=== PATIENT | female | born 1945 | race Caucasian/White ===

== ENCOUNTER 2024-04-03 02:03 | Inpatient (IN) | payer MEDICARE ==
[2024-04-03] MEDS: IBUPROFEN 600 MG TAB PO STA (02:39)
[2024-04-03] MEDS: ACETAMINOPHEN TAB 500 MG TAB PO STA (02:39)
[2024-04-03] MEDS: DEXAMETHASONE SOD PHOSPHATE 10 MG/ML 1 ML VIAL IVP STA (02:41)
[2024-04-03] MEDS: SODIUM CHLORIDE 0.9% 500 ML 500 ML IV SCH (02:41)
--- NOTE | 2024-04-03 02:48 | ED ---
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 The patient states that she received immunotherapy earlier in the day yesterday. A few hours after that she began throwing up and having difficulty in breathing. Also endorses a pounding headache across the front of her head. Denies any blood or green color to her vomit. Denies any diarrhea, black or bloody stools or abdominal pain. Endorses cough, stating that she has had a persistent sinus infection for the last few weeks. No hemoptysis. Denies chest pain. History is limited by acuity of condition. - Related Data Home Medications Medication Instructions Recorded Confirmed Atorvastatin [Lipitor] 40 mg PO PC-SUPPER 04/03/24 04/03/24 clonazePAM [KlonoPIN] 1 mg PO HS@199904/03/24 04/03/24 ursodioL [Ursodiol] 300 mg PO BID@08,199904/03/24 04/03/24 Previous Rx's Medication Instructions Recorded Acetaminophen Tab [Tylenol] 650 mg PO Q6HR PRN tab 04/06/24 Apixaban [Eliquis] 5 mg PO BID #60 tab 04/06/24 Aspirin 81 mg PO DAILY #30 tab 04/06/24 Calcium Carbonate [Tums] 1,000 mg PO Q4HR PRN tab 04/06/24 Famotidine [Pepcid] 20 mg PO BID #60 tab 04/06/24 predniSONE [Deltasone] 40 mg PO DAILY #60 tab 04/06/24 Allergies Allergy/AdvReac Type Severity Reaction Status Date / Time No Known Allergies Allergy Verified 04/03/24 07:37 Review of Systems ROS Statement: Those systems with pertinent positive or pertinent negative responses have been documented in the HPI. ROS Other: All systems not noted in ROS Statement are negative. Limitations: ROS unobtainable due to patients medical condition Past Medical History Past Medical History: Atrial Fibrillation, Cancer History of Any Multi-Drug Resistant Organisms: None Reported Past Surgical History: Coronary Bypass/CABG Past Psychological History: Anxiety Smoking Status: Former smoker Past Alcohol Use History: None Reported General Exam - General Exam Comments Initial Comments: PE: CONSTITUTIONAL: Tachypneic, mild distress, ill-appearing SKIN: Warm, dry, no jaundice, hives or petechiae EYES: Pupils are equally round, extraocular movements intact without nystagmus, clear conjunctiva, non-icteric sclera HENT: Normocephalic, atraumatic, dry mucus membranes, oropharynx clear without exudates NECK: , Full range of motion, normal appearance PULMONARY: Crackles and rales in the bilateral lung brito, no wheezes, tach ypnea, supraclavicular retractions, no stridor CARDIOVASCULAR: Cardia, regular rhythm normal S1 and S2. No appreciated murmurs, rubs or gallops. Strong radial pulses with intact distal perfusion. No lower extremity edema GASTROINTESTINAL: Soft, active bowel sounds throughout, non-tender, non-distend ed, no palpable masses, no rebound or guarding. No hepatosplenomegaly MUSCULOSKELETAL: Extremities have no gross deformity, no edema, redness, or swelling. No calf swelling NEUROLOGIC:_a/o x 3, GCS 15, normal mentation and speech. Moves all extremities x 4 without motor or sensory deficit PSYCHIATRIC:_normal mood and affect, thought process is clear and linear Course Vital Signs 04/03/24 04/03/24 04/03/24 02:06 02:54 03:36 Temperature 99.2 F Pulse Rate 129 H 120 H Pulse Rate [ Pulse Oximetery ] Respiratory 16 Rate Blood Pressure 168/68 166/77 Blood Pressure [Right Arm Sitting] O2 Sat by Pulse 95 Oximetry Fraction of 44 Inspired Oxygen (FIO2) 04/03/24 04/03/24 04/03/24 03:45 04:30 06:10 Temperature 99.2 F 98.5 F Pulse Rate 107 H 99 101 H Pulse Rate [ Pulse Oximetery ] Respiratory 20 20 Rate Blood Pressure 106/46 103/47 Blood Pressure [Right Arm Sitting] O2 Sat by Pulse 98 97 Oximetry Fraction of Inspired Oxygen (FIO2) 04/03/24 04/03/24 04/03/24 06:14 06:31 08:01 Temperature 98.6 F Pulse Rate 99 93 Pulse Rate [ Pulse Oximetery ] Respiratory 20 Rate Blood Pressure 99/51 Blood Pressure [Right Arm Sitting] O2 Sat by Pulse 97 99 Oximetry Fraction of 40 Inspired Oxygen (FIO2) 04/03/24 04/03/24 04/03/24 08:05 09:26 11:46 Temperature Pulse Rate 90 91 Pulse Rate [ Pulse Oximetery ] Respiratory 18 18 Rate Blood Pressure 96/50 112/63 Blood Pressure [Right Arm Sitting] O2 Sat by Pulse 99 99 Oximetry Fraction of 40 Inspired Oxygen (FIO2) 04/03/24 04/03/24 04/03/24 11:57 14:40 16:05 Temperature Pulse Rate 81 84 Pulse Rate [ Pulse Oximetery ] Respiratory 18 18 Rate Blood Pressure 108/54 109/52 Blood Pressure [Right Arm Sitting] O2 Sat by Pulse 100 100 Oximetry Fraction of 40 Inspired Oxygen (FIO2) 04/03/24 04/03/24 04/03/24 16:16 17:13 18:46 Temperature Pulse Rate 80 77 78 Pulse Rate [ Pulse Oximetery ] Respiratory 22 22 22 Rate Blood Pressure 131/61 110/62 100/52 Blood Pressure [Right Arm Sitting] O2 Sat by Pulse 100 100 100 Oximetry Fraction of 40 Inspired Oxygen (FIO2) 04/03/24 04/03/24 04/03/24 19:32 19:39 22:54 Temperature Pulse Rate 75 Pulse Rate [ 74 Pulse Oximetery ] Respiratory 20 18 Rate Blood Pressure 104/61 Blood Pressure 105/58 [Right Arm Sitting] O2 Sat by Pulse 100 100 100 Oximetry Fraction of 40 43 Inspired Oxygen (FIO2) 04/03/24 04/04/24 04/04/24 23:36 00:38 01:16 Temperature Pulse Rate 69 69 Pulse Rate [ Pulse Oximetery ] Respiratory 16 14 Rate Blood Pressure 90/48 99/51 Blood Pressure [Right Arm Sitting] O2 Sat by Pulse 100 100 100 Oximetry Fraction of 43 Inspired Oxygen (FIO2) 04/04/24 04/04/24 04/04/24 02:09 02:23 05:50 Temperature 97.8 F 98.0 F Pulse Rate 66 Pulse Rate [ 74 81 Pulse Oximetery ] Respiratory 14 18 18 Rate Blood Pressure 85/55 Blood Pressure 125/73 130/84 [Right Arm Sitting] O2 Sat by Pulse 99 100 100 Oximetry Fraction of 40 42 Inspired Oxygen (FIO2) 04/04/24 04/04/24 04/04/24 08:20 08:37 15:12 Temperature 98.4 F Pulse Rate 79 74 Pulse Rate [ Pulse Oximetery ] Respiratory 16 22 Rate Blood Pressure 123/60 112/58 Blood Pressure [Right Arm Sitting] O2 Sat by Pulse 100 100 100 Oximetry Fraction of 42 Inspired Oxygen (FIO2) - Reevaluation(s) Reevaluation #1: Patient reassessed, now on high flow nasal cannula, coloring is improved and she appears much were comfortable, tachycardia has improved, HR 100. 04/03/24 03:55 EKG Findings - EKG Comments: EKG Findings:: Sinus tachycardia, shortened WV interval, rate 125 ms, WV interval 115 ms, QRS duration 115 ms, QT/QTc 296/370 ms, normal axis, artifact present throughout, T wave inversion in V3, no STEMI, no arrythmia Medical Decision Making - Medical Decision Making Was pt. sent in by a medical professional or institution (, PA, AUTOMATIC SERGING MACHINE OPERATOR, urgent care, hospital, or [facility]...) When possible be specific @ -No Did you speak to anyone other than the patient for history (EMS, parent, family, police, friend...)? What history was obtained from this source @ -No Did you review nursing and triage notes (agree or disagree)? Why? @ -I reviewed and agree with nursing and triage notes Were old charts reviewed (outside hosp., previous admission, EMS record, old EKG, old radiological studies, urgent care reports/EKG's, [facility] records)? Report findings @ -No old charts available for review Differential Diagnosis (chest pain, altered mental status, abdominal pain women, abdominal pain men, vaginal bleeding, weakness, fever, dyspnea, syncope, headache, dizziness, GI bleed, back pain, seizure, CVA, palpatations, mental health, musculoskeletal)? @ - Differential diagnosis remains broad however top considerations include sepsis secondary to pneumonia, viral infection, bronchitis, hypersensitivity reaction to immunotherapy, allergic reaction, new onset CHF, ACS, PE, this is not inclusive list EKG interpreted by me (3pts min.). @ -As above X-rays interpreted by me (1pt min.). @ -No acute process, no consoldiations or effusons CT interpreted by me (1pt min.). @ No hemorrhage or mass effect on CT brain U/S interpreted by me (1pt. min.). @ -None done What testing was considered but not performed or refused? (CT, X-rays, U/S, labs)? Why? @ -Considered CT abdomen/pelvis however patient denies abdominal pain, abdomen soft and nontender, active bowel wounds, suspect N/V more likely 2/2 reaaction to immunotherapy as opposed to acute intraabdominal process What meds were considered but not given or refused? Why? @ -None Did you discuss the management of the patient with other professionals (professionals i.e. , PA, AUTOMATIC SERGING MACHINE OPERATOR, lab, RT, psych nurse, social service director, drip molder, teacher, chief safety officer, top case assembler)? Give summary @ -No Was smoking cessation discussed for >3mins.? @ -No Was critical care preformed (if so, how long)? @ -Yes 60 minutes Were there social determinants of health that impacted care today? How? (Homelessness, low income, unemployed, alcoholism, drug addiction, transportation, low edu. Level, literacy, decrease access to med. care, alf, rehab)? @ -No Was there de-escalation of care discussed even if they declined (Discuss DNR or withdrawal of care, Hospice)? @ -No What co-morbidities impacted this encounter? (DM, HTN, Smoking, COPD, CAD, Cancer, CVA, ARF, Chemo, Hep., AIDS, mental health diagnosis, sleep apnea, morbid obesity)? @ -[Metastatic small cell lung CA Was patient admitted / discharged? Hospital course, mention meds given and route, prescriptions, significant lab abnormalities, going to OR and other pertinent info. @ -Hospital course- Admitted Patient is a 78-year-old female past medical history of small cell lung cancer with metastases to the liver presenting today for 1 day of shortness of breath, nausea and vomiting that began after receiving immunotherapy for the first time yesterday afternoon. On my assessment patient is ill-appearing, pale, tachypneic in moderate distress, conversational dyspnea on 4 L oxygen nasal cannula. Yellowish emesis in basin at bedside. Crackles and rales in lungs t hroughout the lower lung brito bilaterally. Abdomen is soft and nontender, nondistended. Differential diagnosis as above. Will begin with sepsis order set, in addition to comprehensive labs. Discussed with RT plan for high beth nasal cannula due to my suspicions of SHILO and pulm exam being 2/2 pneumonia vs hypersensitivity reaction to immunotherapy. RT will trial HiFlo. On reassessment patient appears to be sleeping and breath more comfortably after administration of HiFlo Labs reviewed, significant for white blood cell count of 31.4, neutrophils 30.1%, 0.63% lymphocytes, 0.31 metamyelocytes, AST/ALT 97/94, alkaline phosphatase 136, troponin 0.031, TSH 0.448, free T41.15, negative viral panel. CT PE study was delayed due to difficulty obtaining large-bore IV for contrast ministration. On my reassessment though patient's coloring improved she still endorse shortness of breath. Multiple IV attempts were made without success of obtaining large-bore IV. Given rales and crackles in the bilateral lung brito I suspect that patient symptoms are more likely secondary to pneumonia versus immunotherapy reaction such as pulmonary edema, at this point we will hold off on CT PE study and obtain chest x-rays. The patient did receive a 30 cc/kg bolus out of concern for sepsis however I will administer 20 mg IV Lasix out of new concern that there may be a component of pulmonary edema caused by immunotherapy. Albuterol treatment will be trialed as well however patient does not have wheezes and I have low suspicion that this will help symptoms. Plan for admission. Discussed plan of care with patient, she was agreeable with POC. Discussed case with Dr. Hairston, who kindly accepted patient for admission. Noe, AUTOMATIC SERGING MACHINE OPERATOR with pulm team, was also consulted given patients new O2 requirement and pulmonary exam findings. Patient admitted in stable condition. Undiagnosed new problem with uncertain prognosis? @ -Yes Drug Therapy requiring intensive monitoring for toxicity (Heparin, Nitro, Insulin, Cardizem)? @ -No Were any procedures done? @ -No Diagnosis/symptom? @ Acute hypoxic respiratory failure Acute, or Chronic, or Acute on Chronic? @ -acute Uncomplicated (without systemic symptoms) or Complicated (systemic symptoms)? @ -complicated Side effects of treatment? @ -No Exacerbation, Progression, or Severe Exacerbation? @ -No Poses a threat to life or bodily function? How? (Chest pain, USA, OR, pneumonia, PE, COPD, DKA, ARF, appy, cholecystitis, CVA, Diverticulitis, Homicidal, Suicidal, threat to staff... and all critical care pts) @ Yes - Lab Data Result diagrams: 04/05/24 06:12 04/05/24 06:12 Lab Results 04/03/24 04/03/24 04/03/24 Range/Units 02:34 02:47 03:26 WBC 31.4 H (3.8-10.6) k/uL RBC 3.98 (3.80-5.40) m/uL Hgb 12.0 (11.4-16.0) gm/dL Hct 37.1 (34.0-46.0) % MCV 93.2 (80.0-100.0) fL MCH 30.3 (25.0-35.0) pg MCHC 32.5 (31.0-37.0) g/dL RDW 15.1 (11.5-15.5) % Plt Count 232 (150-450) k/uL MPV 8.8 Neutrophils % Not Reportable Neutrophils % (Manual) 89 % Band Neuts % (Manual) 7 % Lymphocytes % Not Reportable Lymphocytes % (Manual) 2 % Monocytes % Not Reportable Monocytes % (Manual) 3 % Eosinophils % Not Reportable Basophils % Not Reportable Metamyelocytes % 1 % Neutrophils # Not Reportable Neutrophils # (Manual) 30.10 H (1.3-7.7) k/uL Lymphocytes # Not Reportable Lymphocytes # (Manual) 0.63 L (1.0-4.8) k/uL Monocytes # Not Reportable Monocytes # (Manual) 0.94 (0-1.0) k/uL Eosinophils # Not Reportable Basophils # Not Reportable Metamyelocytes # (Man) 0.31 H (0) k/uL Nucleated RBCs 0 (0-0) /100 WBC Manual Slide Review Performed RBC Morphology Normal PT (10.0-12.5) sec INR (<1.2) APTT (22.0-30.0) sec Sodium (137-145) mmol/L Potassium (3.5-5.1) mmol/L Chloride (98-107) mmol/L Carbon Dioxide (22-30) mmol/L Anion Gap mmol/L BUN (7-17) mg/dL Creatinine (0.52-1.04) mg/dL Est GFR (CKD-EPI)AfAm (>60 ml/min/1.73 sqM) Est GFR (CKD-EPI)NonAf (>60 ml/min/1.73 sqM) Glucose (74-99) mg/dL Plasma Lactic Acid Sagar (0.7-2.0) mmol/L Calcium (8.4-10.2) mg/dL Ionized Calcium Suzi (4.5-5.3) mg/dL Phosphorus (2.5-4.5) mg/dL Total Bilirubin (0.2-1.3) mg/dL AST (14-36) U/L ALT (4-34) U/L Alkaline Phosphatase (38-126) U/L Troponin I 0.031 (0.000-0.034) ng/mL Total Protein (6.3-8.2) g/dL Albumin (3.5-5.0) g/dL Amylase (30-110) U/L Lipase (23-300) U/L Procalcitonin (0.02-0.50) ng/mL TSH (0.465-4.680) mIU/L Free T4 (0.78-2.19) ng/dL Influenza Type A (PCR) Not Detected (Not Detectd) Influenza Type B (PCR) Not Detected (Not Detectd) RSV (PCR) Not Detected (Not Detectd) SARS-CoV-2 (PCR) Not Detected (Not Detectd) 04/03/24 04/03/24 04/03/24 Range/Units 03:26 03:26 03:26 WBC (3.8-10.6) k/uL RBC (3.80-5.40) m/uL Hgb (11.4-16.0) gm/dL Hct (34.0-46.0) % MCV (80.0-100.0) fL MCH (25.0-35.0) pg MCHC (31.0-37.0) g/dL RDW (11.5-15.5) % Plt Count (150-450) k/uL MPV Neutrophils % Neutrophils % (Manual) % Band Neuts % (Manual) % Lymphocytes % Lymphocytes % (Manual) % Monocytes % Monocytes % (Manual) % Eosinophils % Basophils % Metamyelocytes % % Neutrophils # Neutrophils # (Manual) (1.3-7.7) k/uL Lymphocytes # Lymphocytes # (Manual) (1.0-4.8) k/uL Monocytes # Monocytes # (Manual) (0-1.0) k/uL Eosinophils # Basophils # Metamyelocytes # (Man) (0) k/uL Nucleated RBCs (0-0) /100 WBC Manual Slide Review RBC Morphology PT 11.6 (10.0-12.5) sec INR 1.1 (<1.2) APTT 22.1 (22.0-30.0) sec Sodium 137 (137-145) mmol/L Potassium (3.5-5.1) mmol/L Chloride 104 (98-107) mmol/L Carbon Dioxide 26 (22-30) mmol/L Anion Gap 7 mmol/L BUN 15 (7-17) mg/dL Creatinine 0.52 (0.52-1.04) mg/dL Est GFR (CKD-EPI)AfAm >90 (>60 ml/min/1.73 sqM) Est GFR (CKD-EPI)NonAf >90 (>60 ml/min/1.73 sqM) Glucose 136 H (74-99) mg/dL Plasma Lactic Acid Sagar 1.7 (0.7-2.0) mmol/L Calcium 9.0 (8.4-10.2) mg/dL Ionized Calcium Suzi 4.7 (4.5-5.3) mg/dL Phosphorus 3.4 (2.5-4.5) mg/dL Total Bilirubin 0.8 (0.2-1.3) mg/dL AST 97 H (14-36) U/L ALT 94 H (4-34) U/L Alkaline Phosphatase 136 H (38-126) U/L Troponin I (0.000-0.034) ng/mL Total Protein 6.6 (6.3-8.2) g/dL Albumin 4.0 (3.5-5.0) g/dL Amylase (30-110) U/L Lipase 29 (23-300) U/L Procalcitonin (0.02-0.50) ng/mL TSH 0.448 L (0.465-4.680) mIU/L Free T4 1.15 (0.78-2.19) ng/dL Influenza Type A (PCR) (Not Detectd) Influenza Type B (PCR) (Not Detectd) RSV (PCR) (Not Detectd) SARS-CoV-2 (PCR) (Not Detectd) 04/03/24 04/03/24 Range/Units 03:26 06:35 WBC (3.8-10.6) k/uL RBC (3.80-5.40) m/uL Hgb (11.4-16.0) gm/dL Hct (34.0-46.0) % MCV (80.0-100.0) fL MCH (25.0-35.0) pg MCHC (31.0-37.0) g/dL RDW (11.5-15.5) % Plt Count (150-450) k/uL MPV Neutrophils % Neutrophils % (Manual) % Band Neuts % (Manual) % Lymphocytes % Lymphocytes % (Manual) % Monocytes % Monocytes % (Manual) % Eosinophils % Basophils % Metamyelocytes % % Neutrophils # Neutrophils # (Manual) (1.3-7.7) k/uL Lymphocytes # Lymphocytes # (Manual) (1.0-4.8) k/uL Monocytes # Monocytes # (Manual) (0-1.0) k/uL Eosinophils # Basophils # Metamyelocytes # (Man) (0) k/uL Nucleated RBCs (0-0) /100 WBC Manual Slide Review RBC Morphology PT (10.0-12.5) sec INR (<1.2) APTT (22.0-30.0) sec Sodium (137-145) mmol/L Potassium (3.5-5.1) mmol/L Chloride (98-107) mmol/L Carbon Dioxide (22-30) mmol/L Anion Gap mmol/L BUN (7-17) mg/dL Creatinine (0.52-1.04) mg/dL Est GFR (CKD-EPI)AfAm (>60 ml/min/1.73 sqM) Est GFR (CKD-EPI)NonAf (>60 ml/min/1.73 sqM) Glucose (74-99) mg/dL Plasma Lactic Acid Sagar (0.7-2.0) mmol/L Calcium (8.4-10.2) mg/dL Ionized Calcium Suzi (4.5-5.3) mg/dL Phosphorus (2.5-4.5) mg/dL Total Bilirubin (0.2-1.3) mg/dL AST (14-36) U/L ALT (4-34) U/L Alkaline Phosphatase (38-126) U/L Troponin I 0.077 H* (0.000-0.034) ng/mL Total Protein (6.3-8.2) g/dL Albumin (3.5-5.0) g/dL Amylase (30-110) U/L Lipase (23-300) U/L Procalcitonin 0.21 (0.02-0.50) ng/mL TSH (0.465-4.680) mIU/L Free T4 (0.78-2.19) ng/dL Influenza Type A (PCR) (Not Detectd) Influenza Type B (PCR) (Not Detectd) RSV (PCR) (Not Detectd) SARS-CoV-2 (PCR) (Not Detectd) Disposition Clinical Impression: Acute hypoxic respiratory failure Disposition: ADMITTED IP TO THIS HOSP
[2024-04-03] MEDS: ONDANSETRON 4 MG/2 ML VIAL IVP STA (02:50)
[2024-04-03] MEDS: CEFEPIME 2 GM in SODIUM CHLORIDE 0.9% 100 ML IVPB STA (03:42)
[2024-04-03 03:55] LABS: Ionized Calcium 4.7 mg/dL (4.5-5.3)
[2024-04-03 03:57] LABS: HCT 37.1 % (34.0-46.0); MCH 30.3 pg (25.0-35.0); MCHC 32.5 g/dL (31.0-37.0); MCV 93.2 fL (80.0-100.0); Mean Platelet Volume 8.8; Platelet Count 232 k/uL (150-450); RBC 3.98 m/uL (3.80-5.40); RDW 15.1 % (11.5-15.5); WBC 31.4 k/uL (3.8-10.6)
[2024-04-03 04:33] LABS: ALT 94 U/L (4-34); AST 97 U/L (14-36); African American GFR (CKD) >90 (>60 ml/min/1.73 sqM); Alkaline Phosphatase 136 U/L (38-126); Anion Gap 7 mmol/L; Blood Urea Nitrogen 15 mg/dL (7-17); Carbon Dioxide 26 mmol/L (22-30); Chloride 104 mmol/L (98-107); Glucose 136 mg/dL (74-99); Lipase 29 U/L (23-300); Non-African American GFR(CKD) >90 (>60 ml/min/1.73 sqM); Phosphorus 3.4 mg/dL (2.5-4.5); Sodium 137 mmol/L (137-145); Total Bilirubin 0.8 mg/dL (0.2-1.3); Total Protein 6.6 g/dL (6.3-8.2)
[2024-04-03 04:35] LABS: INR 1.1 (<1.2); Partial Thromboplastin Time 22.1 sec (22.0-30.0); Prothrombin Time 11.6 sec (10.0-12.5)
[2024-04-03 05:36] LABS: T4, Free (Free Thyroxine) 1.15 ng/dL (0.78-2.19)
[2024-04-03 05:45] LABS: Band Neutrophils % 7 %; Lymphocytes # (M) 0.63 k/uL (1.0-4.8); Metamyelocytes # (M) 0.31 k/uL (0); Metamyelocytes % 1 %; Monocytes # (M) 0.94 k/uL (0-1.0); Neutrophils % (M) 89 %; Nucleated Red Blood Cells 0 /100 WBC (0-0); RBC Morphology Normal; Total Cells Counted 200
[2024-04-03] MEDS: IPRATROPIUM-ALBUTEROL 3 ML NEB INHALATION STA (06:09)
[2024-04-03] MEDS ORDERED: NALOXONE 0.4 MG/ML 1 ML VIAL IV PRN (06:13)
[2024-04-03] MEDS: FUROSEMIDE 10 MG/ML 2 ML VIAL IV ONE (06:24)
[2024-04-03] MEDS ORDERED: MAG HYDROX/AL HYDROX/SIMETH 30 ML CUP PO PRN (06:41)
[2024-04-03] MEDS ORDERED: ONDANSETRON 4 MG/2 ML VIAL IVP PRN (06:41)
[2024-04-03] MEDS ORDERED: HYDROmorphone 1 MG/ML 1 ML SYRINGE IVP PRN (06:41)
[2024-04-03] MEDS ORDERED: CALCIUM CARBONATE 500 MG CHEWABLE PO PRN (06:41)
--- NOTE | 2024-04-03 07:38 | CT ---
EXAMINATION TYPE: CT brain wo con DATE OF EXAM: 04/03/2024 COMPARISON: None HISTORY: Pt presents to ER via EMS. Pt had first round of immunotherapy, continuation of chemotherapy for lung/liver cancer yesterday at [facility]. Pt began to experience shortness of breath and nausea a t [address] DLP: [address] of the brain was performed. The ventricles, basal cisterns and sulci overlying the cerebral convexities demonstrate mild enlargem ent. There is no evidence for intracranial hemorrhage or sulcal effacement. There is decreased attenuation about the periventricular white matter and deep white matter of both c erebral hemispheres, compatible with chronic small vessel ischemia. Differential diagnosis does inclu de demyelination. No mass effects are seen.No midline shift. High density material within the left maxillary sinus may reflect inspissated mucus. Osseous calvarium is intact. If symptoms persist consider MRI. IMPRESSION: 1. Age related atrophic and chronic small vessel ischemic change without acute intracranial process s een at this time. [facility], , 04/03/2024 7:36 AM
--- NOTE | 2024-04-03 07:47 | XR ---
EXAMINATION TYPE: XR chest 2V DATE OF EXAM: 04/03/2024 COMPARISON: NONE HISTORY: Shortness of breath TECHNIQUE: Frontal and lateral views of the chest are obtained. FINDINGS: Scattered senescent parenchymal changes noted. Hyperinflation compatible with COPD. No evidence for infiltrate. No evidence for atelectasis. Heart size is stable. Mediastinal structures are stable and grossly unremarkable. No evidence for hilar prominence. Degenerative changes dorsal spine. IMPRESSION: 1. No evidence for acute pulmonary disease. [facility], , 04/03/2024 7:44 AM
--- NOTE | 2024-04-03 08:37 | P.HPIM ---
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 She claims that she had chemotherapy about 2 weeks ago and tolerated well. She had another round of chemotherapy along with immunotherapy yesterday. As soon as she got home within 6 hours she has developed sudden onset of shortness of breath. She denies any chest pain or cough or abdominal pain. She denies any lower extremity swelling, sick contacts or recent travel. She believes all of her symptoms are secondary to her immunotherapy. She denies any lightheadedness, palpitations, fevers or chills. She did have some nausea and vomiting because of severe shortness of breath. She denies any urinary complaints. In the ED, temperature is 99.2, pulse 129, respiratory rate 16, blood pressure 168/68, saturating at 95% on high flow nasal cannula at 35 L, FiO2 44%. WBC 31.4, band neutrophils 7%, sodium 137, creatinine 0.52, troponin 0.031, AST 97, ALT 94, ALP 136, TSH 0.448, free T41.15, lipase 29. Chest x-ray independently interpreted, possible right lower lobe opacity. EKG independently interpreted, shows sinus tachycardia with significant baseline artifact, T wave inversions in septal and inferior leads, nonspecific ST-T wave changes. Head CT did not show any acute process. Patient was given a dose of IV cefepime in the ED, IV steroids, breathing treatments. She is being admitted for acute hypoxic respiratory failure, possibly secondary to community-acquired pneumonia. CT angiogram still pending. Pertinent positives and negatives as discussed in HPI, a complete review of systems was performed and all other systems are negative. Patient seen and examined at bedside. Vital signs reviewed General: nontoxic, no distress, appears at stated age, chronically ill- appearing, thin Derm: warm, dry Head: atraumatic, normocephalic, symmetric Eyes: EOMI, no lid lag, anicteric sclera, pupils equal round reactive to light ENT: Nose and ears atraumatic Neck: No thyromegaly, supple Mouth: no lip lesion, mucus membranes moist Cardiovascular: S1S2 reg, no murmur, no edema Lungs: clear to auscultation bilateral, no rhonchi, no rales, no wheeze, on Airvo Abdominal: soft, nontender to palpation, no guarding, no appreciable organomegaly Ext: no gross muscle atrophy, muscle strength muscle strength 5 out of 5 in all 4 extremities, no contractures Neuro: CN II-XII grossly intact Psych: Alert, oriented, appropriate affect Assessment/Plan: Active: Acute hypoxic respiratory failure Sepsis secondary to community-acquired pneumonia Leukocytosis with bandemia Possible pulmonary embolism History of small cell lung cancer with metastatic disease to the liver, on chemoimmunotherapy Sinus tachycardia NSTEMI, likely type II -Continue Airvo for now, continue to wean oxygen -Possible right lower lobe opacity -Will get 2 L of lactated Ringer's -Continue cefepime IV 2 g every 8 hours, azithromycin 500 mg IV daily -Procalcitonin, sputum cultures, blood cultures pending -CT angiogram pending -Pulmonology and oncology consulted -Continue to monitor troponin -Continue telemetry monitoring -Aspirin 324 once, continue aspirin 81 mg, continue home atorvastatin 40 mg daily -Echo pending Transaminitis -Possibly in the setting of liver mets Low TSH -Repeat thyroid function test in 4 to 6 weeks The patient is admitted with an anticipated greater than 2 midnight stay as inpatient status for evaluation of hypoxic respiratory failure. Surrogate decision-maker: None stated CODE STATUS: Full code DVT prophylaxis: Lovenox Anticipated discharge date: Pending clinical course Anticipated discharge place: Pending clinical course A total of 55 minutes was spent on the care of this complex patient more than 50% of the time was spent in counseling and care coordination. Past Medical History Past Medical History: Atrial Fibrillation, Cancer History of Any Multi-Drug Resistant Organisms: None Reported Past Surgical History: Coronary Bypass/CABG Past Psychological History: Anxiety Smoking Status: Former smoker Past Alcohol Use History: None Reported Medications and Allergies Home Medications Medication Instructions Recorded Confirmed Type Atorvastatin [Lipitor] 40 mg PO PC-SUPPER 04/03/24 04/03/24 History clonazePAM [KlonoPIN] 1 mg PO HS@199904/03/24 04/03/24 History ursodioL [Ursodiol] 300 mg PO BID@08,199904/03/24 04/03/24 History Allergies Allergy/AdvReac Type Severity Reaction Status Date / Time No Known Allergies Allergy Verified 04/03/24 07:37 Physical Exam Vitals: Vital Signs Temp Pulse Resp BP Pulse Ox FiO2 04/03/24 06:31 98.6 F 93 20 99/51 97 04/03/24 06:14 99 04/03/24 06:10 101 H 04/03/24 04:30 98.5 F 99 20 103/47 97 04/03/24 03:45 99.2 F 107 H 20 106/46 98 04/03/24 03:36 44 04/03/24 02:54 120 H 166/77 04/03/24 02:06 99.2 F 129 H 16 168/68 95 Intake and Output 04/02/24 04/03/24 04/03/24 22:59 06:59 14:59 Other: Weight 52.163 kg Results CBC & Chem 7: 04/03/24 03:26 04/03/24 03:26 Labs: Abnormal Lab Results - Last 24 Hours (Table) 04/03/24 04/03/24 Range/Units 03:26 03:26 WBC 31.4 H (3.8-10.6) k/uL Neutrophils # (Manual) 30.10 H (1.3-7.7) k/uL Lymphocytes # (Manual) 0.63 L (1.0-4.8) k/uL Metamyelocytes # (Man) 0.31 H (0) k/uL Glucose 136 H (74-99) mg/dL AST 97 H (14-36) U/L ALT 94 H (4-34) U/L Alkaline Phosphatase 136 H (38-126) U/L TSH 0.448 L (0.465-4.680) mIU/L
[2024-04-03] MEDS: LACTATED RINGERS 1,000 ML IV ONE ×2 (09:15→11:56)
[2024-04-03] MEDS: AZITHROMYCIN 500 MG in SODIUM CHLORIDE 0.9% 250 ML IVPB SCH (09:17)
[2024-04-03] MEDS: ASPIRIN 81 MG PO STA (09:24)
[2024-04-03] MEDS: FAMOTIDINE 20 MG TAB PO SCH (09:25)
[2024-04-03] MEDS: ENOXAPARIN 40 MG/0.4 ML SYRINGE SQ SCH (09:25)
--- NOTE | 2024-04-03 09:26 | CT ---
EXAMINATION TYPE: CT angio chest CT DLP: 271.9 mGycm, Automated exposure control for dose reduction was used. DATE OF EXAM: 04/03/2024 8:48 AM COMPARISON: CT chest 04/03/2024 CLINICAL INDICATION: Female, 78 years old with history of tachypnea, CA, PE?; sob TECHNIQUE/CONTRAST: CTA scan of the thorax is performed with IV Contrast, patient injected with 63 mL of Isovue 370, MIP images are created and reviewed these are created on a separate workstation.. FINDINGS: Pulmonary Artery: Scattered small filling defect suggested in this motion limited exam particularly i n the left lower lung subsegmental pulmonary arterial vasculature series 411 image 119. The pulmonary artery is of normal size. Lungs/Pleura: No evidence of focal consolidation, pleural effusion or pneumothorax. Right lower lobe mass measures 63 x 43 mm. Mild centrilobular emphysema changes most proximal lung apices. Airway: Large airways are patent. Heart: The heart is mildly enlarged for size. Aortic valve repair changes noted. Mild atherosclerosis of the coronary arteries. Vasculature: No evidence of aortic aneurysm. Ectatic extending thoracic aorta measuring up to 43 mm. Mediastinum: No gross evidence of adenopathy. Specifically no greater than 1.0 cm short axis lymph no bree identified. Musculoskeletal: Moderate degenerative disc disease changes are present throughout the thoracolumbar spine. Sternotomy wires are present. Soft Tissues/lymph nodes: Unremarkable. Lower neck: No significant findings. Upper Abdomen: No significant findings. IMPRESSION: 1. Questionable small filling defects in this motion limited exam in the left lung base possibly rep resenting small subsegmental pulmonary emboli. Correlate with d-dimer. No evidence right heart strain . 2. Right lower lung pulmonary mass compatible with known malignancy. No greater than 1.0 cm lymph no bree visualized. [facility], , 04/03/2024 9:24 AM
[2024-04-03] MEDS: HEPARIN SODIUM,PORCINE 5,000 UNIT/ML 1 ML VIAL SQ SCH (09:31)
[2024-04-03] MEDS ORDERED: HEPARIN SODIUM 1,000 UN/ML (10ML VL) IV PRN (11:06)
[2024-04-03] MEDS: methylPREDNISolone SOD SUCCI 125 MG/2 ML VIAL IV SCH (12:03)
[2024-04-03] MEDS: HEPARIN SODIUM 1,000 UN/ML (10ML VL) IV ONE (12:23)
[2024-04-03] MEDS: HEPARIN SOD,PORK IN 0.45% NACL 25,000 UNIT in 0.45% NACL 1 250ML.BAG IV SCH (12:24)
[2024-04-03 12:52] LABS: INR 1.2 (<1.2); Partial Thromboplastin Time 27.8 sec (22.0-30.0); Prothrombin Time 12.5 sec (10.0-12.5)
--- NOTE | 2024-04-03 14:42 | P.CNPUL ---
History of Present Illness Consult date: 04/03/24 Requesting physician: Jose Luis Grier Reason for consult: dyspnea, hypoxemia, abnormal CXR/CT Chief complaint: Shortness of breath History of present illness: This is a pleasant 78-year-old female patient with a history of coronary artery disease with previous coronary artery bypass grafting, hyperlipidemia, atrial fibrillation, anxiety, former smoker and recent diagnosis of small cell lung cancer that has metastasized to the liver diagnosed at [facility] in [place]. She is following with Dr. Cao while here in [facility] and had undergone a round of chemotherapy and just yesterday had a second round of chemotherapy in addition to immunotherapy. Several hours later and into the last evening she developed headache, nausea and vomiting, worsening shortness of breath and presented here to the emergency room early this morning. CT scan of the brain revealed no acute intracranial process. Chest x-ray revealed no acute pulmonary process. White count 31.4. Hemoglobin 12.0. Platelets 232. D-dimer 1.0. Sodium 137.. BUN 15. Creatinine 0.52. Glucose 136. AST 97. ALT 94. Troponin 0.031, 0.077, 0.083. Procalcitonin 0.21. Viral screen was negative. T angiogram revealed a questionable small filling defect in a motion limited exam in the left lung base possibly representing a small subsegmental pulmonary emboli. No evidence of right heart strain. Right lower lung pulmonary mass compatible with known malignancy. She is seen today in consultation in the emergency department. She is currently sitting up in bed. She is dyspneic with minimal exertion. Dyspneic with conversation. She is requiring Airvo high flow oxygen at 40 L and 40% FiO2. She has been initiated on a heparin drip. Initiated on cefepime and azithromycin. She is on IV Solu-Medrol. She has been afebrile. Hemodynamically stable. Review of Systems REVIEW OF SYSTEMS: CONSTITUTIONAL: Denies any recent significant weight loss or weight gain. EYES: Denies change in vision. EARS, NOSE, MOUTH, THROAT: Positive for headaches, denies sore throat. CARDIOVASCULAR: Denies chest pain, palpitations or syncopal episodes. RESPIRATORY: Positive for shortness of breath, cough, congestion no hemoptysis. GASTROINTESTINAL: Positive for nausea and vomiting, denies abdominal pain GENITOURINARY: Denies hematuria, denies infections. MUSKULOSKELETAL: Denies pain, denies swelling. INTEGUMENTARY: Denies rash, denies eczema. NEUROLOGICAL: Denies recent memory loss, no recent seizure activity. PSYCHIATRIC: Denies anxiety, denies depression. HEMATOLOGIC/LYMPHATIC: Denies anemia, denies enlarged lymph nodes. Past Medical History Past Medical History: Atrial Fibrillation, Cancer History of Any Multi-Drug Resistant Organisms: None Reported Past Surgical History: Coronary Bypass/CABG Past Psychological History: Anxiety Smoking Status: Former smoker Past Alcohol Use History: None Reported Medications and Allergies Home Medications Medication Instructions Recorded Confirmed Type Atorvastatin [Lipitor] 40 mg PO PC-SUPPER 04/03/24 04/03/24 History clonazePAM [KlonoPIN] 1 mg PO HS@199904/03/24 04/03/24 History ursodioL [Ursodiol] 300 mg PO BID@04/03/24 04/03/24 History Allergies Allergy/AdvReac Type Severity Reaction Status Date / Time No Known Allergies Allergy Verified 04/03/24 07:37 Physical Exam Vitals: Vital Signs Temp Pulse Resp BP Pulse Ox FiO2 04/03/24 11:57 81 18 108/54 100 04/03/24 11:46 40 04/03/24 09:26 91 18 112/63 99 04/03/24 08:05 90 18 96/50 99 04/03/24 08:01 99 40 04/03/24 06:31 98.6 F 93 20 99/51 97 04/03/24 06:14 99 04/03/24 06:10 101 H 04/03/24 04:30 98.5 F 99 20 103/47 97 04/03/24 03:45 99.2 F 107 H 20 106/46 98 04/03/24 03:36 44 04/03/24 02:54 120 H 166/77 04/03/24 02:06 99.2 F 129 H 16 168/68 95 Intake and Output 04/02/24 04/03/24 04/03/24 22:59 06:59 14:59 Other: Weight 52.163 kg GENERAL EXAM: Alert, shows 78-year-old female, on Airvo high flow oxygen, in mild respiratory distress. HEAD: Normocephalic. EYES: Normal reaction of pupils, equal size. NOSE: Clear with pink turbinates. THROAT: No erythema or exudates. NECK: No masses, no JVD. CHEST: No chest wall deformity. LUNGS: Equal air entry with no crackles, wheeze, rhonchi or dullness. CVS: S1 and S2 normal with no audible murmur, regular rhythm. ABDOMEN: No hepatosplenomegaly, normal bowel sounds, no guarding or rigidity. SPINE: No scoliosis or deformity SKIN: No rashes CENTRAL NERVOUS SYSTEM: No focal deficits, tone is normal in all 4 extremities. EXTREMITIES: There is no peripheral edema. No clubbing, no cyanosis. Peripheral pulses are intact. Results - Laboratory Findings CBC and BMP: 04/03/24 03:26 04/03/24 03:26 PT/INR, D-dimer PT 12.5 sec (10.0-12.5) 04/03/24 10:06 INR 1.2 (<1.2) H 04/03/24 10:06 D-Dimer 1.00 mg/L FEU (<0.60) H 04/03/24 10:06 Abnormal lab findings: Abnormal Labs 04/03/24 04/03/24 04/03/24 03:26 03:26 06:35 WBC 31.4 H Neutrophils # (Manual) 30.10 H Lymphocytes # (Manual) 0.63 L Metamyelocytes # (Man) 0.31 H INR D-Dimer Glucose 136 H AST 97 H ALT 94 H Alkaline Phosphatase 136 H Troponin I 0.077 H* TSH 0.448 L 04/03/24 04/03/24 04/03/24 10:06 10:06 10:06 WBC Neutrophils # (Manual) Lymphocytes # (Manual) Metamyelocytes # (Man) INR 1.2 H D-Dimer 1.00 H Glucose AST ALT Alkaline Phosphatase Troponin I 0.083 H* TSH - Diagnostic Findings Chest x-ray: image reviewed CT scan - chest: image reviewed Assessment and Plan Assessment: Acute hypoxemic respiratory failure secondary to possible reaction to immunotherapy, small subsegmental pulmonary emboli versus motion artifact not significant enough to cause her symptoms Troponin leak, initiated on a heparin drip Nausea, vomiting, headache and shortness of breath possibly related to new im munotherapy given yesterday April 02, 2024 Recent diagnosis of small cell lung cancer with liver metastasis received second round of chemotherapy yesterday April 02, 2024 Transaminitis secondary to above Previous coronary artery bypass grafting History of anxiety Former smoker Hyperlipidemia Plan: The patient was seen and evaluated Imaging, labs and medications reviewed Initiated on Solu-Medrol per oncology Titrate down the FiO2 as tolerated Procalcitonin negative Antibiotics discontinued Continue Xanax for anxiety Continued on a heparin drip Echocardiogram pending We will continue to follow and make further recommendations based on her clinical status I have personally seen and examined the patient, performed the documentation and the assessment and plan as written. Number of minutes spent on the visit: 20.
[2024-04-03] MEDS: ACETAMINOPHEN TAB 325 MG TAB PO PRN (15:20)
--- NOTE | 2024-04-03 15:44 | P.CONS ---
History of Present Illness - Reason for Consult Consult date: 04/03/24 SCLC Requesting physician: Jose Luis Grier - Chief Complaint SOB - History of Present Illness Ms. Castañeda is a female pt of Dr. Valeria Cao who initially presented with N, V, D. She was hospitalized initially at [facility], then [facility]. CT chest revealed 9 X 4.[address]-Guided core lung Bx at [facility] 02/28/24 revealing small cell carcinoma. She was found to limited mets in the liver. She completed her 1st cycle of carbo/FORESTRY TREE PRUNER/ tecentriq with GCSF on 03/15, and she tolerated very well, only mild fatigue. She has cycle 2 day 1 of treatment yesterday. She reported within 4 hours after infusion she had sudden onset SOB, persistent and progressive. She contacted the service last night with c/o SHILO, she was instructed to contact EMS for transport to hospital, (labored breathing/gasping was heard over the phone). Tachycardic on admit, placed on High flow O2, oxygen saturation has been in the 90's consistently, no fever, BP unremarkable. CTA reporting possibly small PE, no right heart strain, she has been started on heparin drip. CXR neg for acute pulmonary process. CT brain neg for met. Abn EKG, serial troponin ordered. When seen pt denies any fever, chills, chest pain, productive cough, N,V, abd pain, acute changed in bowel or bladder. She received steroids, albuterol nad aspirin, with only temporary mild relief of symptoms. Review of Systems 10 point ROS is neg except as stated in HPI Past Medical History Past Medical History: Atrial Fibrillation, Cancer History of Any Multi-Drug Resistant Organisms: None Reported Past Surgical History: Coronary Bypass/CABG Past Psychological History: Anxiety Smoking Status: Former smoker Past Alcohol Use History: None Reported Medications and Allergies Home Medications Medication Instructions Recorded Confirmed Type Atorvastatin [Lipitor] 40 mg PO PC-SUPPER 04/03/24 04/03/24 History clonazePAM [KlonoPIN] 1 mg PO HS@199904/03/24 04/03/24 History ursodioL [Ursodiol] 300 mg PO BID@08,199904/03/24 04/03/24 History Allergies Allergy/AdvReac Type Severity Reaction Status Date / Time No Known Allergies Allergy Verified 04/03/24 07:37 Physical Exam Vitals: Vital Signs Temp Pulse Resp BP Pulse Ox FiO2 04/03/24 08:05 90 18 96/50 99 04/03/24 08:01 99 40 04/03/24 06:31 98.6 F 93 20 99/51 97 04/03/24 06:14 99 04/03/24 06:10 101 H 04/03/24 04:30 98.5 F 99 20 103/47 97 04/03/24 03:45 99.2 F 107 H 20 106/46 98 04/03/24 03:36 44 04/03/24 02:54 120 H 166/77 04/03/24 02:06 99.2 F 129 H 16 168/68 95 Intake and Output 04/02/24 04/03/24 04/03/24 22:59 06:59 14:59 Other: Weight 52.163 kg - Constitutional General appearance: average body habitus, cooperative, mild distress - EENT Eyes: anicteric sclerae, EOMI ENT: hearing grossly normal, normal oropharynx - Neck Neck: no lymphadenopathy - Respiratory no stridor Respiratory: bilateral: CTA - Cardiovascular Rhythm: regular Heart sounds: normal: S1, S2 Abnormal Heart Sounds: systolic murmur, no diastolic murmur, no rub, no S3 Gallop, no S4 Gallop, no click, no other leg Peripheral Edema: bilateral: None - Gastrointestinal General gastrointestinal: no absent bowel sounds, no decreased bowel sounds, no distended, no hepatomegaly, no hyperactive bowel sounds, normal bowel sounds, no organomegaly, no rigid, no scaphoid, soft, no splenomegaly, no tenderness, no umbilical hernia, no ventral hernia - Integumentary Integumentary: pale - Neurologic Neurologic: CNII-XII intact - Musculoskeletal Musculoskeletal: generalized weakness, strength equal bilaterally - Psychiatric Psychiatric: A&O x's 3, appropriate affect, intact judgment & insight Results CBC & Chem 7: 04/03/24 03:26 04/03/24 03:26 Labs: Abnormal Lab Results - Last 24 Hours (Table) 04/03/24 04/03/24 04/03/24 Range/Units 03:26 03:26 06:35 WBC 31.4 H (3.8-10.6) k/uL Neutrophils # (Manual) 30.10 H (1.3-7.7) k/uL Lymphocytes # (Manual) 0.63 L (1.0-4.8) k/uL Metamyelocytes # (Man) 0.31 H (0) k/uL Glucose 136 H (74-99) mg/dL AST 97 H (14-36) U/L ALT 94 H (4-34) U/L Alkaline Phosphatase 136 H (38-126) U/L Troponin I 0.077 H* (0.000-0.034) ng/mL TSH 0.448 L (0.465-4.680) mIU/L CT scan - chest: report reviewed, image reviewed CT Scan - head: report reviewed Assessment and Plan (1) SOB (shortness of breath) Current Visit: Yes Status: Acute Priority: High Code(s): R06.02 - SHORTN ESS OF BREATH SNOMED Code(s): 984514589 (2) Small cell lung cancer Current Visit: Yes Status: Acute Priority: Medium Code(s): C34.90 - MALIGNANT NEOPLASM OF UNSP PART OF UNSP BRONCHUS OR LUNG SNOMED Code(s): 685687427 Plan: Shortness of breath -CTA possibly a small PE, chest x-ray overall unremarkable. No radiographic findings to explain patient's significant shortness of breath -Concern for possible chemotherapy allergic reaction. Dose of epinephrine has been ordered. -Based on imaging, less suspicious presentation and symptoms are immunotherapy induced pneumonitis. Patient did receive 10 mg of dexamethasone, Solu-Medrol 60 mg every 6 hours has been ordered. -Underlying cardiac reason for shortness of breath? Abnormal EKG. Serial troponin ordered, pending echo. -Patient is on a heparin drip for the small PE. Doppler of the bilateral lower extremities ordered for baseline. Small cell lung cancer -Recent diagnosis. See HPI for details -Patient received cycle 1 days 1-4 without significant side effects. She completed day 1 of cycle 2 yesterday. As above, concern for possible chemotherapy allergic reaction. Treating for the same. May require change in therapy versus carboplatin desensitization. Will see how patient responds. Doctor attests: I performed a history and physical examination of this patient, developed impression and plan of care. Discussed with dictator. I agree with dictators note, documented as a scribe.
--- NOTE | 2024-04-03 15:53 | US ---
EXAMINATION TYPE: US venous doppler duplex LE BI DATE OF EXAM: 04/03/2024 3:20 PM COMPARISON: NONE CLINICAL INDICATION: Female, 78 years old with history of PE, baseline; HX Open heart surgery; triple bypass; low BP; Patient denies any signs or symptoms at this time SIDE PERFORMED: Bilateral TECHNIQUE: The lower extremity deep venous system is examined utilizing real time linear array sonog brendon with graded compression, color doppler sonography, and spectral doppler. VESSELS IMAGED: Common Femoral Vein Deep Femoral Vein Greater Saphenous Vein * Femoral Vein Popliteal Vein Small Saphenous Vein * Proximal Calf Veins (* superficial vessels) Right Leg: Negative for DVT Left Leg: Negative for DVT IMPRESSION: Grayscale, color doppler, spectral doppler imaging performed of the deep veins of the lo wer extremities. There is normal flow, compressibility, vascular waveforms. [facility], , 04/03/2024 3:51 PM
[2024-04-03] MEDS ORDERED: CEFEPIME 2 GM in SODIUM CHLORIDE 0.9% 100 ML IVPB SCH (16:00)
[2024-04-03] MEDS: ALPRAZolam 0.25 MG TAB PO PRN (16:23)
[2024-04-03] MEDS: ATORVASTATIN 40 MG TAB PO SCH (18:53)
[2024-04-03] MEDS: clonazePAM 1 MG TAB PO SCH (20:17)
[2024-04-03] MEDS: traMADol 50 MG TAB PO PRN (20:17)
[2024-04-03 22:07] LABS: Appearance,Urine Clear (Clear); Bacteria,Urine Rare /hpf; Bilirubin,Urine Negative (Negative); Blood,Urine Negative (Negative); Color,Urine Colorless; Glucose,Urine (UA) Negative (Negative); Hyaline Casts,Urine 4 /lpf (0-2); Ketones,Urine Negative (Negative); Leukocyte Esterase,Urine Small (Negative); Mucus,Urine Rare /hpf; Nitrite,Urine Negative (Negative); Protein,Urine Negative (Negative); RBC,Urine <1 /hpf (0-5); Specific Gravity,Urine 1.019 (1.001-1.035); Urobilinogen,Urine <2.0 mg/dL (<2.0); WBC,Urine 4 /hpf (0-5)
[2024-04-04 03:20] LABS: Basophils % (A) 0 %; Eosinophils % (A) 0 %; HCT 33.7 % (34.0-46.0); HGB 11.3 gm/dL (11.4-16.0); Lymphocytes # (A) 1.1 k/uL (1.0-4.8); Lymphocytes % (A) 8 %; MCH 31.5 pg (25.0-35.0); MCHC 33.5 g/dL (31.0-37.0); Mean Platelet Volume 9.2; Monocytes # (A) 0.2 k/uL (0-1.0); Monocytes % (A) 1 %; Neutrophils # (A) 13.1 k/uL (1.3-7.7); Neutrophils % (A) 91 %; Platelet Count 184 k/uL (150-450); RBC 3.59 m/uL (3.80-5.40); RDW 15.4 % (11.5-15.5); WBC 14.5 k/uL (3.8-10.6)
[2024-04-04 03:45] LABS: ALT 75 U/L (4-34); AST 48 U/L (14-36); African American GFR (CKD) >90 (>60 ml/min/1.73 sqM); Albumin 3.2 g/dL (3.5-5.0); Alkaline Phosphatase 101 U/L (38-126); Anion Gap 1 mmol/L; Blood Urea Nitrogen 16 mg/dL (7-17); Calcium 8.3 mg/dL (8.4-10.2); Carbon Dioxide 26 mmol/L (22-30); Chloride 109 mmol/L (98-107); Glucose 130 mg/dL (74-99); Magnesium 1.9 mg/dL (1.6-2.3); Non-African American GFR(CKD) >90 (>60 ml/min/1.73 sqM); Potassium 4.5 mmol/L (3.5-5.1); Sodium 136 mmol/L (137-145); Total Bilirubin 0.6 mg/dL (0.2-1.3); Total Protein 5.4 g/dL (6.3-8.2)
--- NOTE | 2024-04-04 08:03 | CA ---
Transthoracic Echo Report Name: Steffi Castañeda Age: 78 Gender: F : 1945 Exam Date: 04/03/2024 15:11 Exam Location: [facility] Ht (in): 67 Wt (lb): 115 Ordering Physician: Jose Luis Grier MD Attending/Referring Phys: [id number], [employer] Technician Galina Gray, MED Procedure CPT: Indications: nstemi Cardiac Hx: Cancer, CABG, AV Replacement Technical Quality: Fair Contrast 1: Total Dose (mL): Contrast 2: Total Dose (mL): MEASUREMENTS (Male / Female) Normal Values 2D ECHO LV Diastolic Diameter PLAX 3.9 cm 4.2 - 5.9 / 3.9 - 5.3 cm LV Systolic Diameter PLAX 2.3 cm IVS Diastolic Thickness 1.1 cm 0.6 - 1.0 / 0.6 - 0.9 cm LVPW Diastolic Thickness 1.0 cm 0.6 - 1.0 / 0.6 - 0.9 cm LV Relative Wall Thickness 0.5 RV Internal Dim ED PLAX 2.4 cm LVOT Diameter 1.8 cm LA Systolic Diameter LX 3.8 cm 3.0 - 4.0 / 2.7 - 3.8 cm LV Diastolic Volume MOD BP 42.8 cm??? 67 - 155 / 56 - 104 cm??? LV Systolic Volume MOD BP 11.8 cm??? 22 - 58 / 19 - 49 cm??? LV Ejection Fraction MOD BP 72.5 % >= 55 % LV Cardiac Index MOD BP 1611.3 cm???/min???m??? LV Diastolic Volume MOD 4C 56.3 cm??? LV Systolic Volume MOD 4C 14.0 cm??? LV Ejection Fraction MOD 4C 75.1 % LV Cardiac Index MOD 4C 2193.9 cm???/min???m??? LV Diastolic Length 4C 5.7 cm LV Systolic Length 4C 4.6 cm LV Diastolic Volume MOD 2C 29.8 cm??? LV Systolic Volume MOD 2C 10.0 cm??? LV Ejection Fraction MOD 2C 66.6 % LV Cardiac Index MOD 2C 1031.1 cm???/min???m??? LV Diastolic Length 2C 5.2 cm LV Systolic Length 2C 4.7 cm M-MODE Aortic Root Diameter MM 3.7 cm LA Systolic Diameter MM 3.4 cm LA Ao Ratio MM 0.9 DOPPLER AV Peak Velocity 128.9 cm/s AV Peak Gradient 6.6 mmHg AV Mean Velocity 92.3 cm/s AV Mean Gradient 3.8 mmHg AV Velocity Time Integral 29.4 cm Mitral E Point Velocity 83.7 cm/s Mitral A Point Velocity 46.5 cm/s Mitral E to A Ratio 1.8 MV Deceleration Time 253.8 ms MV E' Velocity 14.7 cm/s Mitral E to MV E' Ratio 5.7 TR Peak Velocity 311.3 cm/s TR Peak Gradient 38.8 mmHg Right Ventricular Systolic Press 58.8 mmHg FINDINGS Left Ventricle Left ventricular ejection fraction is estimated at 60-65%. Mildly increased septal wall thickness. Normal left ventricular systolic function with no obvious regional wall motion abnormalities. Right Ventricle Mild right ventricular dilatation. Moderate to severe pulmonary hypertension. Right Atrium Severe right atrial dilatation. Left Atrium Severe left atrial dilatation. Mitral Valve Mitral valve thickened. Moderate mitral annular calcification. Moderate mitral regurgitation. Posteriorly directed mitral regurgitation jet. Aortic Valve Bioprosthetic Aortic valve without stenosis with a peak velocity of 1.28 m/s, peak gradient 6.6mmHg, mean gradient 3.8 mmHg. No aortic regurgitation. Tricuspid Valve Annular dilatation of the tricuspid valve. Severe tricuspid regurgitation. No tricuspid stenosis. Pulmonic Valve Structurally normal pulmonic valve. No pulmonic stenosis. Trace pulmonic regurgitation. Pericardium Left pleural effusion. No pericardial effusion. Aorta Mild aortic dilatation at the level of the sinuses of valsalva (root). CONCLUSIONS Normal LV systolic function Bioprosthetic valve in aortic position is functioning normally Severe tricuspid regurgitation Moderate to severe pulmonary hypertension Moderate mitral regurgitation that is primarily posteriorly directed Previewed by: Dr. Dc Gaitan MD (Electronically Signed) Final Date: 04 April 2024 08:02
[2024-04-04] MEDS: ASPIRIN 81 MG PO SCH (08:22)
[2024-04-04] MEDS: ursodioL 300 MG CAP PO SCH (08:39)
--- NOTE | 2024-04-04 08:40 | XR ---
EXAMINATION TYPE: XR chest 1V portable DATE OF EXAM: 04/04/2024 COMPARISON: NONE HISTORY: Shortness of breath TECHNIQUE: Frontal and lateral views of the chest are obtained. FINDINGS: Scattered senescent parenchymal changes noted. Hyperinflation compatible with COPD. No evidence for infiltrate. No evidence for atelectasis. Heart size is stable. Mediastinal structures are stable and grossly unremarkable. No evidence for hilar prominence. Degenerative changes dorsal spine. IMPRESSION: 1. No evidence for acute pulmonary disease. [facility], , 04/04/2024 8:38 AM
[2024-04-04 09:25] LABS: ABG Base Excess 1.8 mmol/L; ABG HCO3 27 mmol/L (21-25); ABG Oxygen Saturation 99.6 % (94-97); ABG PCO2 44 mmHg (35-45); ABG PO2 133 mmHg (83-108); ABG TCO2 28 mmol/L (19-24); Allen Test Performed? Yes
--- NOTE | 2024-04-04 14:09 | P.PN ---
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 In the ED, temperature is 99.2, pulse 129, respiratory rate 16, blood pressure 168/68, saturating at 95% on high flow nasal cannula at 35 L, FiO2 44%. WBC 31.4, band neutrophils 7%, sodium 137, creatinine 0.52, troponin 0.031, AST 97, ALT 94, ALP 136, TSH 0.448, free T41.15, lipase 29. Chest x-ray independently interpreted, possible right lower lobe opacity. EKG independently interpreted, shows sinus tachycardia with significant baseline artifact, T wave inversions in septal and inferior leads, nonspecific ST-T wave changes. Head CT did not show any acute process. Patient was given a dose of IV cefepime in the ED, IV steroids, breathing treatments. She is being admitted for acute hypoxic respiratory failure, possibly secondary to community-acquired pneumonia. CT angiogram showed right lower lung pulmonary mass, questionable small filling defects in the left lung base possibly representing small subsegmental pulmonary emboli. Lower extremity Dopplers ne gative for DVT bilaterally. 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 Subjective: Patient seen and examined at bedside. No acute events overnight. Claims that breathing is improved. Pertinent positives and negatives as discussed above, a complete review of systems was performed and all other systems are negative. Vitals Signs Reviewed. General: [nontoxic], [no distress], [appears at stated age] Derm: [warm], [dry] Head: [atraumatic], [normocephalic], [symmetric] Eyes: [EOMI], [no lid lag], [anicteric sclera] Mouth: [no lip lesion], [mucus membranes moist] Cardiovascular: [S1S2 reg], [no murmur] Lungs: [Bibasilar fine rales] , [no accessory muscle use], supplemental oxygen Abdominal: [soft], [ nontender to palpation], [no guarding], [no appreciable organomegaly] Ext: [no gross muscle atrophy], [no edema], [no contractures] Neuro: [ CN II-XI grossly intact], [no focal neuro deficits] Psych: [Alert], [oriented], [appropriate affect] Data Reviewed Today: Pertinent Labs: WBC 14.5, hemoglobin 11.3, D-dimer 1, APTT 57.7, pH 7.4, pCO2 44, pO2 133 on 40% FiO2, sodium 136, creatinine 0.52, magnesium 1.9, AST 48, ALT 75, ALP 101, troponin peaked at 0.083, urine Legionella antigen negative. Imaging: Chest x-ray independently interpreted, similar to yesterday, no new opacities Assessment and Plan: Patient is severely ill, needs close monitoring. Prognosis guarded. 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 Small subsegmental left lung pulmonary embolism Leukocytosis, resolving Bandemia, resolved History of small cell lung cancer with metastatic disease to the liver, on chemoimmunotherapy Sinus tachycardia NSTEMI, likely type II -Continue wean oxygen -Continue IV heparin drip, monitor APTT and monitor for bleeding -Patient currently not on any IV antibiotics -Concern for possible pneumonitis, patient started on IV Solu-Medrol 60 every 6 hours per oncology -No active chest pain -Echocardiogram does not show any regional wall motion abnormalities -Continue aspirin 81 mg, atorvastatin 40 mg for now -Continue telemetry monitoring Transaminitis -Possibly in the setting of liver mets Low TSH -Repeat thyroid function test in 4 to 6 weeks Anxiety -Continue home Klonopin 1 mg nightly, monitor for sedation DVT ppx: Heparin drip Code status: Full code Anticipated discharge place: Pending clinical course Anticipated discharge time: Pending clinical course Objective - Vital Signs Vital signs: Vital Signs Temp 98.0 F 04/04/24 05:50 Pulse 79 04/04/24 08:20 Resp 16 04/04/24 08:20 BP 123/60 04/04/24 08:20 Pulse Ox 100 04/04/24 08:37 FiO2 42 04/04/24 08:37 Intake & Output 04/03/24 04/04/24 04/04/24 18:59 06:59 18:59 Intake Total 59.62 0 Balance 59.62 0 Weight 52.163 kg Intake: Intake, IV Titration 59.62 0 Amount Heparin Sod,Pork in 0.45% 59.62 0 NaCl 25,000 unit In 0.45 % NaCl 1 250ml.bag @ 18 UNITS/KG/HR 9.389 mls/hr IV .Q24H [facility] Rx#: [id number] Other: # Voids 2 - Labs CBC & Chem 7: 04/04/24 02:43 04/04/24 02:43 Labs: Abnormal Lab Results - Last 24 Hours (Table) 04/03/24 04/03/24 04/04/24 Range/Units 17:15 21:38 02:43 WBC (3.8-10.6) k/uL RBC (3.80-5.40) m/uL Hgb (11.4-16.0) gm/dL Hct (34.0-46.0) % Neutrophils # (1.3-7.7) k/uL APTT 104.2 H* (22.0-30.0) sec ABG pO2 (83-108) mmHg ABG HCO3 (21-25) mmol/L ABG Total CO2 (19-24) mmol/L ABG O2 Saturation (94-97) % Sodium 136 L (137-145) mmol/L Chloride 109 H (98-107) mmol/L Glucose 130 H (74-99) mg/dL Calcium 8.3 L (8.4-10.2) mg/dL AST 48 H (14-36) U/L ALT 75 H (4-34) U/L Total Protein 5.4 L (6.3-8.2) g/dL Albumin 3.2 L (3.5-5.0) g/dL Ur Leukocyte Esterase Small H (Negative) Urine Bacteria Rare H (None) /hpf Hyaline Casts 4 H (0-2) /lpf Urine Mucus Rare H (None) /hpf 04/04/24 04/04/24 04/04/24 Range/Units 02:43 02:43 09:07 WBC 14.5 H (3.8-10.6) k/uL RBC 3.59 L (3.80-5.40) m/uL Hgb 11.3 L (11.4-16.0) gm/dL Hct 33.7 L (34.0-46.0) % Neutrophils # 13.1 H (1.3-7.7) k/uL APTT 57.7 H (22.0-30.0) sec ABG pO2 133 H (83-108) mmHg ABG HCO3 27 H (21-25) mmol/L ABG Total CO2 28 H (19-24) mmol/L ABG O2 Saturation 99.6 H (94-97) % Sodium (137-145) mmol/L Chloride (98-107) mmol/L Glucose (74-99) mg/dL Calcium (8.4-10.2) mg/dL AST (14-36) U/L ALT (4-34) U/L Total Protein (6.3-8.2) g/dL Albumin (3.5-5.0) g/dL Ur Leukocyte Esterase (Negative) Urine Bacteria (None) /hpf Hyaline Casts (0-2) /lpf Urine Mucus (None) /hpf Microbiology - Last 24 Hours (Table) 04/03/24 03:26 Blood Culture - Preliminary Blood
--- NOTE | 2024-04-04 16:17 | P.PN ---
Subjective Progress Note Date: 04/04/24 This is a pleasant 78-year-old female patient with a history of coronary artery disease with previous coronary artery bypass grafting, hyperlipidemia, atrial fibrillation, anxiety, former smoker and recent diagnosis of small cell lung cancer that has metastasized to the liver diagnosed at [facility] in [place]. She is following with Dr. Cao while here in [facility] and had undergone a round of chemotherapy and just yesterday had a second round of chemotherapy in addition to immunotherapy. Several hours later and into the last evening she developed headache, nausea and vomiting, worsening shortness of breath and presented here to the emergency room early this morning. CT scan of the brain revealed no acute intracranial process. Chest x-ray revealed no acute pulmonary process. White count 31.4. Hemoglobin 12.0. Platelets 232. D-dimer 1.0. Sodium 137.. BUN 15. Creatinine 0.52. Glucose 136. AST 97. ALT 94. Troponin 0.031, 0.077, 0.083. Procalcitonin 0.21. Viral screen was negative. CT angiogram revealed a questionable small filling defect in a motion limited e xam in the left lung base possibly representing a small subsegmental pulmonary emboli. No evidence of right heart strain. Right lower lung pulmonary mass compatible with known malignancy. She is seen today in consultation in the emergency department. She is currently sitting up in bed. She is dyspneic with minimal exertion. Dyspneic with conversation. She is requiring Airvo high flow oxygen at 40 L and 40% FiO2. She has been initiated on a heparin drip. Initiated on cefepime and azithromycin. She is on IV Solu-Medrol. She has been afebrile. Hemodynamically stable. The patient is seen today April 04, 2024 in follow-up. She is sitting up on the stretcher. Awake and alert in no acute distress. Breathing easier today compared to yesterday. She has been transitioned from Airvo high flow oxygen to 4 L/min per nasal cannula. She has been afebrile. Hemodynamically stable. Cu lture is pending. 14.5. Hemoglobin 11.3. Platelets 184. Sodium 136. Potassium 4.5. Bicarb 26. BUN 16. Creatinine 0.52. AST 48. ALT 75. Arterial blood gases on 40% FiO2 revealed a PaO2 of 133, pCO2 44, pH 7.40. She is continued on IV Solu-Medrol for suspected pneumonitis. She remains on a heparin drip due to a troponin leak and possible small subsegmental pulmonary emboli in the left lung base. Objective - Vital Signs Vital signs: Vital Signs Temp 98.4 F 04/04/24 15:12 Pulse 74 04/04/24 15:12 Resp 22 04/04/24 15:12 BP 112/58 04/04/24 15:12 Pulse Ox 100 04/04/24 15:12 FiO2 42 04/04/24 08:37 Intake & Output 04/03/24 04/04/24 04/04/24 18:59 06:59 18:59 Intake Total 59.62 0 Balance 59.62 0 Weight 52.163 kg Intake: Intake, IV Titration 59.62 0 Amount Heparin Sod,Pork in 0.45% 59.62 0 NaCl 25,000 unit In 0.45 % NaCl 1 250ml.bag @ 18 UNITS/KG/HR 9.389 mls/hr IV .Q24H [facility] Rx#: [id number] Other: # Voids 2 - Exam GENERAL EXAM: Alert, 28-year-old female, on 4 L nasal cannula, fairly comfortable in no apparent distress. HEAD: Normocephalic. EYES: Normal reaction of pupils, equal size. NOSE: Clear with pink turbinates. THROAT: No erythema or exudates. NECK: No masses, no JVD. CHEST: No chest wall deformity. LUNGS: Equal air entry with faint crackles in the posterior bases. CVS: S1 and S2 normal with no audible murmur, regular rhythm. ABDOMEN: No hepatosplenomegaly, normal bowel sounds, no guarding or rigidity. SPINE: No scoliosis or deformity SKIN: No rashes CENTRAL NERVOUS SYSTEM: No focal deficits, tone is normal in all 4 extremities. EXTREMITIES: There is no peripheral edema. No clubbing, no cyanosis. Peripheral pulses are intact. - Labs CBC & Chem 7: 04/04/24 02:43 04/04/24 02:43 Labs: Abnormal Lab Results - Last 24 Hours (Table) 04/03/24 04/03/24 04/04/24 Range/Units 17:15 21:38 02:43 WBC (3.8-10.6) k/uL RBC (3.80-5.40) m/uL Hgb (11.4-16.0) gm/dL Hct (34.0-46.0) % Neutrophils # (1.3-7.7) k/uL APTT 104.2 H* (22.0-30.0) sec ABG pO2 (83-108) mmHg ABG HCO3 (21-25) mmol/L ABG Total CO2 (19-24) mmol/L ABG O2 Saturation (94-97) % Sodium 136 L (137-145) mmol/L Chloride 109 H (98-107) mmol/L Glucose 130 H (74-99) mg/dL Calcium 8.3 L (8.4-10.2) mg/dL AST 48 H (14-36) U/L ALT 75 H (4-34) U/L Total Protein 5.4 L (6.3-8.2) g/dL Albumin 3.2 L (3.5-5.0) g/dL Ur Leukocyte Esterase Small H (Negative) Urine Bacteria Rare H (None) /hpf Hyaline Casts 4 H (0-2) /lpf Urine Mucus Rare H (None) /hpf 04/04/24 04/04/24 04/04/24 Range/Units 02:43 02:43 09:07 WBC 14.5 H (3.8-10.6) k/uL RBC 3.59 L (3.80-5.40) m/uL Hgb 11.3 L (11.4-16.0) gm/dL Hct 33.7 L (34.0-46.0) % Neutrophils # 13.1 H (1.3-7.7) k/uL APTT 57.7 H (22.0-30.0) sec ABG pO2 133 H (83-108) mmHg ABG HCO3 27 H (21-25) mmol/L ABG Total CO2 28 H (19-24) mmol/L ABG O2 Saturation 99.6 H (94-97) % Sodium (137-145) mmol/L Chloride (98-107) mmol/L Glucose (74-99) mg/dL Calcium (8.4-10.2) mg/dL AST (14-36) U/L ALT (4-34) U/L Total Protein (6.3-8.2) g/dL Albumin (3.5-5.0) g/dL Ur Leukocyte Esterase (Negative) Urine Bacteria (None) /hpf Hyaline Casts (0-2) /lpf Urine Mucus (None) /hpf Microbiology - Last 24 Hours (Table) 04/03/24 03:26 Blood Culture - Preliminary Blood Assessment and Plan Assessment: Acute hypoxemic respiratory failure secondary to pneumonitis possible reaction to immunotherapy, small subsegmental pulmonary emboli versus motion artifact not significant enough to cause her symptoms Troponin leak, initiated on a heparin drip Nausea, vomiting, headache and shortness of breath possibly related to new immunotherapy given April 02, 2024 Recent diagnosis of small cell lung cancer with liver metastasis received chemotherapy April 02, 2024 Transaminitis secondary to above Previous coronary artery bypass grafting Anxiety Former smoker Hyperlipidemia Plan: The patient was seen and evaluated Labs and medications reviewed Continue Solu-Medrol Titrate down the FiO2 as tolerated Continued on a heparin drip Echocardiogram reviewed Doppler of the lower extremities negative We will continue to follow I have personally seen and examined the patient, performed the documentation and the assessment and plan as written. Number of minutes spent on the visit: 10.
--- NOTE | 2024-04-04 16:18 | P.PN ---
Subjective Progress Note Date: 04/04/24 Principal diagnosis: SOB, SCLC In f/u today pt is reporting that her resp status is improved today. She cont on heparin drip, no bleeding to report. Objective - Vital Signs Vital signs: Vital Signs Temp 98.4 F 04/04/24 15:12 Pulse 74 04/04/24 15:12 Resp 22 04/04/24 15:12 BP 112/58 04/04/24 15:12 Pulse Ox 100 04/04/24 15:12 FiO2 42 04/04/24 08:37 Intake & Output 04/03/24 04/04/24 04/04/24 18:59 06:59 18:59 Intake Total 59.62 0 Balance 59.62 0 Weight 52.163 kg Intake: Intake, IV Titration 59.62 0 Amount Heparin Sod,Pork in 0.45% 59.62 0 NaCl 25,000 unit In 0.45 % NaCl 1 250ml.bag @ 18 UNITS/KG/HR 9.389 mls/hr IV .Q24H [facility] Rx#: [id number] Other: # Voids 2 - Constitutional General appearance: Present: average body habitus, cooperative, mild distress - EENT Eyes: Present: anicteric sclerae, EOMI ENT: Present: hearing grossly normal - Respiratory Respiratory: left: rales (LLL, anterior), bilateral: diminished - Cardiovascular Rhythm: regular Heart sounds: normal: S1, S2 - Peripheral edema leg Peripheral Edema: bilateral: Trace - Gastrointestinal General gastrointestinal: Present: normal bowel sounds, soft - Neurologic Neurologic: Present: CNII-XII intact - Musculoskeletal Musculoskeletal: Present: generalized weakness - Psychiatric Psychiatric: Present: A&O x's 3, appropriate affect, intact judgment & insight - Labs CBC & Chem 7: 04/04/24 02:43 04/04/24 02:43 Labs: Abnormal Lab Results - Last 24 Hours (Table) 04/03/24 04/03/24 04/04/24 Range/Units 17:15 21:38 02:43 WBC (3.8-10.6) k/uL RBC (3.80-5.40) m/uL Hgb (11.4-16.0) gm/dL Hct (34.0-46.0) % Neutrophils # (1.3-7.7) k/uL APTT 104.2 H* (22.0-30.0) sec ABG pO2 (83-108) mmHg ABG HCO3 (21-25) mmol/L ABG Total CO2 (19-24) mmol/L ABG O2 Saturation (94-97) % Sodium 136 L (137-145) mmol/L Chloride 109 H (98-107) mmol/L Glucose 130 H (74-99) mg/dL Calcium 8.3 L (8.4-10.2) mg/dL AST 48 H (14-36) U/L ALT 75 H (4-34) U/L Total Protein 5.4 L (6.3-8.2) g/dL Albumin 3.2 L (3.5-5.0) g/dL Ur Leukocyte Esterase Small H (Negative) Urine Bacteria Rare H (None) /hpf Hyaline Casts 4 H (0-2) /lpf Urine Mucus Rare H (None) /hpf 04/04/24 04/04/24 04/04/24 Range/Units 02:43 02:43 09:07 WBC 14.5 H (3.8-10.6) k/uL RBC 3.59 L (3.80-5.40) m/uL Hgb 11.3 L (11.4-16.0) gm/dL Hct 33.7 L (34.0-46.0) % Neutrophils # 13.1 H (1.3-7.7) k/uL APTT 57.7 H (22.0-30.0) sec ABG pO2 133 H (83-108) mmHg ABG HCO3 27 H (21-25) mmol/L ABG Total CO2 28 H (19-24) mmol/L ABG O2 Saturation 99.6 H (94-97) % Sodium (137-145) mmol/L Chloride (98-107) mmol/L Glucose (74-99) mg/dL Calcium (8.4-10.2) mg/dL AST (14-36) U/L ALT (4-34) U/L Total Protein (6.3-8.2) g/dL Albumin (3.5-5.0) g/dL Ur Leukocyte Esterase (Negative) Urine Bacteria (None) /hpf Hyaline Casts (0-2) /lpf Urine Mucus (None) /hpf Microbiology - Last 24 Hours (Table) 04/03/24 03:26 Blood Culture - Preliminary Blood - Imaging and Cardiology Chest x-ray: report reviewed Venous US: report reviewed Assessment and Plan (1) SOB (shortness of breath) Current Visit: Yes Status: Acute Priority: High Code(s): R06.02 - SHORTNESS OF BREATH SNOMED Code(s): 211655521 (2) Small cell lung cancer Current Visit: Yes Status: Acute Priority: Medium Code(s): C34.90 - MALIGNANT NEOPLASM OF UNSP PART OF UNSP BRONCHUS OR LUNG SNOMED Code(s): 334983583 Plan: Shortness of breath -CTA possibly a small PE. Pulm reviewed images, does not feel there is a high probability for PE. -No radiographic findings to explain patient's significant shortness of breath -Concern for possible chemotherapy allergic reaction less likely as pt did not report a significant change in resp status s/p dose of epinephrine. She is breathing better today -Still less suspicious presentation and symptoms are immunotherapy induced pneumonitis. Imaging was not consistent with the same. Pt is improving with steroids though. Cont solu-Medrol 60 mg every 6 hours has been ordered. Will see how pt does -Underlying cardiac reason for shortness of breath? IM following. Pt cont on heparin drip at this time -Doppler of the bilateral lower extremities was neg for DVT. Small cell lung cancer -Recent diagnosis. See consult for details -Patient received cycle 1 days 1-4 without significant side effects. She completed day 1 of cycle 2 yesterday. -Unclear yet as to the underlying cause of pt symptoms. She is being treated with steroids in case of possible IO SE. She is having cardiac work up. -Based on pt hospital course and recovery from her presenting c/o, decisions as to how to proceed with treatment will be made. -F/U with Medical Oncologist in DC plan. Doctor attests: I performed a history and physical examination of this patient, developed impression and plan of care. Discussed with dictator. I agree with dictators note, documented as a scribe.
[2024-04-04 16:45] LABS: Glucose,Whole Blood 134 mg/dL (70-110)
[2024-04-04 20:13] LABS: Glucose,Whole Blood 211 mg/dL (70-110)
[2024-04-05 06:06] LABS: Glucose,Whole Blood 130 mg/dL (70-110)
[2024-04-05 07:12] LABS: Basophils % (A) 0 %; Eosinophils # (A) 0.1 k/uL (0-0.7); Eosinophils % (A) 0 %; HGB 12.1 gm/dL (11.4-16.0); Lymphocytes # (A) 1.7 k/uL (1.0-4.8); Lymphocytes % (A) 13 %; MCHC 31.7 g/dL (31.0-37.0); MCV 94.7 fL (80.0-100.0); Mean Platelet Volume 10.5; Monocytes # (A) 0.4 k/uL (0-1.0); Monocytes % (A) 3 %; Neutrophils # (A) 11.2 k/uL (1.3-7.7); Neutrophils % (A) 83 %; Platelet Count 283 k/uL (150-450); RBC 4.02 m/uL (3.80-5.40); RDW 14.8 % (11.5-15.5); WBC 13.4 k/uL (3.8-10.6)
[2024-04-05 07:32] LABS: ALT 61 U/L (4-34); AST 34 U/L (14-36); African American GFR (CKD) >90 (>60 ml/min/1.73 sqM); Albumin 3.6 g/dL (3.5-5.0); Alkaline Phosphatase 108 U/L (38-126); Anion Gap 5 mmol/L; Blood Urea Nitrogen 20 mg/dL (7-17); Calcium 9.1 mg/dL (8.4-10.2); Carbon Dioxide 30 mmol/L (22-30); Chloride 102 mmol/L (98-107); Glucose 133 mg/dL (74-99); Magnesium 2.2 mg/dL (1.6-2.3); Non-African American GFR(CKD) 89 (>60 ml/min/1.73 sqM); Potassium 4.5 mmol/L (3.5-5.1); Sodium 137 mmol/L (137-145); Total Bilirubin 0.4 mg/dL (0.2-1.3); Total Protein 5.9 g/dL (6.3-8.2)
[2024-04-05 11:35] LABS: Glucose,Whole Blood 110 mg/dL (70-110)
--- NOTE | 2024-04-05 14:25 | P.PN ---
Subjective Progress Note Date: 04/05/24 Principal diagnosis: Acute hypoxic respiratory failure, multifactorial This is a pleasant 78-year-old female patient with a history of coronary artery disease with previous coronary artery bypass grafting, hyperlipidemia, atrial fibrillation, anxiety, former smoker and recent diagnosis of small cell lung cancer that has metastasized to the liver diagnosed at [facility] in [place]. She is following with Dr. Cao while here in [facility] and had undergone a round of chemotherapy and just yesterday had a second round of chemotherapy in addition to immunotherapy. Several hours later and into the last evening she developed headache, nausea and vomiting, worsening shortness of breath and presented here to the emergency room early this morning. CT scan of the brain revealed no acute intracranial process. Chest x-ray revealed no acute pulmonary process. White count 31.4. Hemoglobin 12.0. Platelets 232. D-dimer 1.0. Sodium 137.. BUN 15. Creatinine 0.52. Glucose 136. AST 97. ALT 94. Troponin 0.031, 0.077, 0.083. Procalcitonin 0.21. Viral screen was negative. CT angiogram revealed a questionable small filling defect in a motion limited ex am in the left lung base possibly representing a small subsegmental pulmonary emboli. No evidence of right heart strain. Right lower lung pulmonary mass compatible with known malignancy. She is seen today in consultation in the emergency department. She is currently sitting up in bed. She is dyspneic with minimal exertion. Dyspneic with conversation. She is requiring Airvo high flow oxygen at 40 L and 40% FiO2. She has been initiated on a heparin drip. Initiated on cefepime and azithromycin. She is on IV Solu-Medrol. She has been afebrile. Hemodynamically stable. The patient is seen today April 04, 2024 in follow-up. She is sitting up on the stretcher. Awake and alert in no acute distress. Breathing easier today compared to yesterday. She has been transitioned from Airvo high flow oxygen to 4 L/min per nasal cannula. She has been afebrile. Hemodynamically stable. Cul ture is pending. 14.5. Hemoglobin 11.3. Platelets 184. Sodium 136. Potassium 4.5. Bicarb 26. BUN 16. Creatinine 0.52. AST 48. ALT 75. Arterial blood gases on 40% FiO2 revealed a PaO2 of 133, pCO2 44, pH 7.40. She is continued on IV Solu-Medrol for suspected pneumonitis. She remains on a heparin drip due to a troponin leak and possible small subsegmental pulmonary emboli in the left lung base. Patient was seen and evaluated today on 04/05/2024, patient is standing up in the room, on room air, does not seem to be in any distress, O2 saturation 93% on room air, patient is feeling much better compared to how she felt when she came in. Patient has been receiving mostly steroids for her questionable reaction/pneumonitis from her immunotherapy, she has been receiving heparin for questionable pulmonary embolism although the CT angiogram of the chest is very vague even the radiologist is questioning the issue of pulmonary embolism nonetheless the patient will receive Eliquis to replace heparin at least for the next 1 month. And would recommend repeat CT angiogram of the chest on this patient. Patient is anxious to go home, she seems to be reluctant to go on high-dose prednisone, hence I would recommend a Medrol Dosepak. In the meantime the patient could be transition to Eliquis and consider discharging the patient home to follow-up with me and with oncology at a future date. WBC count is 13.4 hemoglobin is 12.0 electrolytes are normal renal profile is normal bicarb is 3 0. Objective - Vital Signs Vital signs: Vital Signs Temp 97.7 F 04/05/24 07:35 Pulse 82 04/05/24 08:00 Resp 19 04/05/24 08:14 BP 128/71 04/05/24 07:35 Pulse Ox 93 L 04/05/24 08:14 FiO2 42 04/04/24 08:37 Intake & Output 04/04/24 04/05/24 04/05/24 18:59 06:59 18:59 Intake Total 40 40 Balance 40 40 Weight 55.3 kg Intake: IV 40 40 Invasive Line 1 20 20 Invasive Line 2 20 20 Other: Voiding Method Toilet Toilet # Voids 1 - Exam GENERAL EXAM: 78-year-old female in no distress on room air HEAD: Normocephalic. EYES: Normal reaction of pupils, equal size. NOSE: Clear with pink turbinates. THROAT: No erythema or exudates. NECK: No masses, no JVD. CHEST: No chest wall deformity. LUNGS: Clear bilaterally no rhonchi no wheezes CVS: S1 and S2 normal with no audible murmur, regular rhythm. ABDOMEN: No hepatosplenomegaly, normal bowel sounds, no guarding or rigidity. SKIN: No rashes CENTRAL NERVOUS SYSTEM: Alert oriented x 3 no gross focal deficit EXTREMITIES: There is no peripheral edema. No clubbing, no cyanosis. Peripheral pulses are intact. - Labs CBC & Chem 7: 04/05/24 06:12 04/05/24 06:12 Labs: Abnormal Lab Results - Last 24 Hours (Table) 04/04/24 04/04/24 04/05/24 Range/Units 16:44 19:55 05:50 WBC (3.8-10.6) k/uL Neutrophils # (1.3-7.7) k/uL APTT (22.0-30.0) sec BUN (7-17) mg/dL Glucose (74-99) mg/dL POC Glucose (mg/dL) 134 H 211 H 130 H (70-110) mg/dL ALT (4-34) U/L Total Protein (6.3-8.2) g/dL 04/05/24 04/05/24 04/05/24 Range/Units 06:12 06:12 06:12 WBC 13.4 H (3.8-10.6) k/uL Neutrophils # 11.2 H (1.3-7.7) k/uL APTT 59.2 H (22.0-30.0) sec BUN 20 H (7-17) mg/dL Glucose 133 H (74-99) mg/dL POC Glucose (mg/dL) (70-110) mg/dL ALT 61 H (4-34) U/L Total Protein 5.9 L (6.3-8.2) g/dL Microbiology - Last 24 Hours (Table) 04/03/24 03:26 Blood Culture - Preliminary Blood Assessment and Plan Assessment: Impression Acute hypoxemic respiratory failure secondary to pneumonitis possible reaction to immunotherapy, small subsegmental pulmonary emboli versus motion artifact not significant enough to cause her symptoms Troponin leak, initiated on a heparin drip Nausea, vomiting, headache and shortness of breath possibly related to new immunotherapy given April 02, 2024 Recent diagnosis of small cell lung cancer with liver metastasis received chemotherapy April 02, 2024 Transaminitis secondary to above Previous coronary artery bypass grafting Anxiety Former smoker Hyperlipidemia Recommendation: Agree with discharge planning Patient to go home on Medrol Dosepak and on Eliquis as per protocol for pulmona ry embolism Recommend repeat CT angiogram of the chest in the next few weeks Recommend follow-up on outpatient basis with oncology and decision to be made regarding her future treatment for lung cancer Time with Patient: Less than 30
[2024-04-05 15:10] VITALS: BMI 19.1
--- NOTE | 2024-04-05 17:36 | P.PN ---
Subjective Progress Note Date: 04/05/24 Pt reporting significant improvement in breathing. SPO2 93% on room air this morning. Continues on steroids and heparin drip, with plan to transition to eliquis Objective - Vital Signs Vital signs: Vital Signs Temp 97.7 F 04/05/24 11:40 Pulse 82 04/05/24 14:00 Resp 19 04/05/24 14:00 BP 124/72 04/05/24 11:40 Pulse Ox 93 L 04/05/24 11:40 FiO2 42 04/04/24 08:37 Intake & Output 04/04/24 04/05/24 04/05/24 18:59 06:59 18:59 Intake Total 40 520 Balance 40 520 Weight 55.3 kg 55.3 kg Intake: IV 40 40 Invasive Line 1 20 20 Invasive Line 2 20 20 Oral 480 Other: Voiding Method Toilet Toilet # Voids 1 - Constitutional General appearance: Present: no acute distress - EENT Eyes: Present: anicteric sclerae, EOMI ENT: Present: hearing grossly normal - Respiratory Details: breathing is even and unlabored - Cardiovascular Details: skin warm and dry - Integumentary Integumentary: Absent: cyanotic - Musculoskeletal Musculoskeletal: Present: strength equal bilaterally - Psychiatric Psychiatric: Present: A&O x's 3 - Labs CBC & Chem 7: 04/05/24 06:12 04/05/24 06:12 Labs: Abnormal Lab Results - Last 24 Hours (Table) 04/04/24 04/04/24 04/05/24 Range/Units 16:44 19:55 05:50 WBC (3.8-10.6) k/uL Neutrophils # (1.3-7.7) k/uL APTT (22.0-30.0) sec BUN (7-17) mg/dL Glucose (74-99) mg/dL POC Glucose (mg/dL) 134 H 211 H 130 H (70-110) mg/dL ALT (4-34) U/L Total Protein (6.3-8.2) g/dL 04/05/24 04/05/24 04/05/24 Range/Units 06:12 06:12 06:12 WBC 13.4 H (3.8-10.6) k/uL Neutrophils # 11.2 H (1.3-7.7) k/uL APTT 59.2 H (22.0-30.0) sec BUN 20 H (7-17) mg/dL Glucose 133 H (74-99) mg/dL POC Glucose (mg/dL) (70-110) mg/dL ALT 61 H (4-34) U/L Total Protein 5.9 L (6.3-8.2) g/dL Microbiology - Last 24 Hours (Table) 04/03/24 03:26 Blood Culture - Preliminary Blood Assessment and Plan (1) SOB (shortness of breath) Current Visit: Yes Status: Acute Priority: High Code(s): R06.02 - SHORTNESS OF BREATH SNOMED Code(s): 330902339 (2) Small cell lung cancer Current Visit: Yes Status: Acute Priority: Medium Code(s): C34.90 - MALIGNANT NEOPLASM OF UNSP PART OF UNSP BRONCHUS OR LUNG SNOMED Code(s): 335401783 Plan: Shortness of breath -CTA showing questionable small PE. Pulm reviewed images, does not feel there is a high probability for PE. -No radiographic findings to explain patient's significant shortness of breath -Concern for possible chemotherapy allergic reaction. S/p epinephrine and IV steroids with improvement in breathing -Still less suspicious presentation and symptoms are immunotherapy induced pneumonitis. Imaging was not consistent with the same. Pt is improving with steroids though. Will plan for a 4 week prednisone taper. Spoke with pulm regarding plan -Underlying cardiac reason for shortness of breath? IM following. -Pt cont on heparin drip at this time with plan to transition to Eliquis. Due to questionable state of small PE, it would be reasonable to hold anticoagulation and repeat CTA chest outpt in a couple weeks -Doppler of the bilateral lower extremities was neg for DVT. Small cell lung cancer -Recent diagnosis. See consult for details -Patient received cycle 1 days 1-4 without significant side effects. She completed day 1 of cycle 2 yesterday. -Unclear yet as to the underlying cause of pt symptoms. She is being treated with steroids in case of possible IO SE. She is having cardiac work up. -Based on pt hospital course and recovery from her presenting c/o, decisions as to how to proceed with treatment will be made at f/u next week -F/U with Medical Oncologist in [place] plan.
--- NOTE | 2024-04-05 18:39 | P.PN ---
Subjective Progress Note Date: 04/05/24 Hospital Course: 78-year-old female with history of small cell lung cancer with metastatic dise ase to her liver, on chemo and immunotherapy, dyslipidemia, anxiety presenting with shortness of breath, nausea and vomiting. In the ED, temperature is 99.2, pulse 129, respiratory rate 16, blood pressure 168/68, saturating at 95% on high flow nasal cannula at 35 L, FiO2 44%. WBC 31.4, band neutrophils 7%, sodium 137, creatinine 0.52, troponin 0.031, AST 97, ALT 94, ALP 136, TSH 0.448, free T41.15, lipase 29. Chest x-ray independently interpreted, possible right lower lobe opacity. EKG independently interpreted, shows sinus tachycardia with significant baseline artifact, T wave inversions in septal and inferior leads, nonspecific ST-T wave changes. Head CT did not show any acute process. Patient was given a dose of IV cefepime in the ED, IV steroids, breathing treatments. She is being admitted for acute hypoxic respiratory failure, possibly secondary to community-acquired pneumonia. CT angiogram showed right lower lung pulmonary mass, questionable small filling defects in the left lung base possibly representing small subsegmental pulmonary emboli. Lower extremity Dopplers ne gative for DVT bilaterally. 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 Subjective: Patient seen and examined at bedside. No acute events overnight. Claims that breathing is improved. Transitioned from heparin to eliquis. Likely discharge tomorrow Pertinent positives and negatives as discussed above, a complete review of systems was performed and all other systems are negative. Vitals Signs Reviewed. General: [nontoxic], [no distress], [appears at stated age] Derm: [warm], [dry] Head: [atraumatic], [normocephalic], [symmetric] Eyes: [EOMI], [no lid lag], [anicteric sclera] Mouth: [no lip lesion], [mucus membranes moist] Cardiovascular: [S1S2 reg], [no murmur] Lungs: [Bibasilar fine rales] , [no accessory muscle use], supplemental oxygen Abdominal: [soft], [ nontender to palpation], [no guarding], [no appreciable organomegaly] Ext: [no gross muscle atrophy], [no edema], [no contractures] Neuro: [ CN II-XI grossly intact], [no focal neuro deficits] Psych: [Alert], [oriented], [appropriate affect] Data Reviewed Today: Pertinent Labs: WBC 14.5, hemoglobin 11.3, D-dimer 1, APTT 57.7, pH 7.4, pCO2 44, pO2 133 on 40% FiO2, sodium 136, creatinine 0.52, magnesium 1.9, AST 48, ALT 75, ALP 101, troponin peaked at 0.083, urine Legionella antigen negative. Imaging: Chest x-ray independently interpreted, similar to yesterday, no new opacities Assessment and Plan: Patient is severely ill, needs close monitoring. Prognosis guarded. 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 Small subsegmental left lung pulmonary embolism Leukocytosis, resolving Bandemia, resolved History of small cell lung cancer with metastatic disease to the liver, on chemoimmunotherapy Sinus tachycardia NSTEMI, likely type II -Continue wean oxygen -Eliquis, heparin gtt discontinued -Patient currently not on any IV antibiotics -Concern for possible pneumonitis, patient started on IV Solu-Medrol 60 every 6 hours per oncology -No active chest pain -Echocardiogram does not show any regional wall motion abnormalities -Continue aspirin 81 mg, atorvastatin 40 mg for now -Continue telemetry monitoring Transaminitis -Possibly in the setting of liver mets Low TSH -Repeat thyroid function test in 4 to 6 weeks Anxiety -Continue home Klonopin 1 mg nightly, monitor for sedation DVT ppx: Heparin drip Code status: Full code Anticipated discharge place: Home Anticipated discharge time: Tomorrow Objective - Vital Signs Vital signs: Vital Signs Temp 97.7 F 04/05/24 11:40 Pulse 79 04/05/24 16:00 Resp 18 04/05/24 16:00 BP 131/68 04/05/24 16:00 Pulse Ox 97 04/05/24 16:00 FiO2 42 04/04/24 08:37 Intake & Output 04/04/24 04/05/24 04/05/24 18:59 06:59 18:59 Intake Total 40 520 Balance 40 520 Weight 55.3 kg 55.3 kg Intake: IV 40 40 Invasive Line 1 20 20 Invasive Line 2 20 20 Oral 480 Other: Voiding Method Toilet Toilet # Voids 1 - Labs CBC & Chem 7: 04/05/24 06:12 04/05/24 06:12 Labs: Abnormal Lab Results - Last 24 Hours (Table) 04/04/24 04/05/24 04/05/24 Range/Units 19:55 05:50 06:12 WBC (3.8-10.6) k/uL Neutrophils # (1.3-7.7) k/uL APTT 59.2 H (22.0-30.0) sec BUN (7-17) mg/dL Glucose (74-99) mg/dL POC Glucose (mg/dL) 211 H 130 H (70-110) mg/dL ALT (4-34) U/L Total Protein (6.3-8.2) g/dL 04/05/24 04/05/24 Range/Units 06:12 06:12 WBC 13.4 H (3.8-10.6) k/uL Neutrophils # 11.2 H (1.3-7.7) k/uL APTT (22.0-30.0) sec BUN 20 H (7-17) mg/dL Glucose 133 H (74-99) mg/dL POC Glucose (mg/dL) (70-110) mg/dL ALT 61 H (4-34) U/L Total Protein 5.9 L (6.3-8.2) g/dL Microbiology - Last 24 Hours (Table) 04/03/24 03:26 Blood Culture - Preliminary Blood
[2024-04-05] MEDS: APIXABAN 5 MG TAB PO SCH (20:57)
[2024-04-06] MEDS: predniSONE 20 MG TAB PO SCH (08:18)
[2024-04-06] MEDS ORDERED: methylPREDNISolone 4 MG TAB TAPER PO SCH (09:00)
[2024-04-06] MEDS ORDERED: predniSONE 20 MG TAB PO SCH (09:00)
[2024-04-06 09:12] VITALS: RESP 18; TEMP 98.3
[2024-04-06 11:30] VITALS: BP 147/64; PULSE 90
--- NOTE | 2024-04-06 13:08 | P.PN ---
Subjective Progress Note Date: 04/06/24 Principal diagnosis: Acute hypoxic respiratory failure, multifactorial This is a pleasant 78-year-old female patient with a history of coronary artery disease with previous coronary artery bypass grafting, hyperlipidemia, atrial fibrillation, anxiety, former smoker and recent diagnosis of small cell lung cancer that has metastasized to the liver diagnosed at [facility] in [place]. She is following with Dr. Cao while here in [facility] and had undergone a round of chemotherapy and just yesterday had a second round of chemotherapy in addition to immunotherapy. Several hours later and into the last evening she developed headache, nausea and vomiting, worsening shortness of breath and presented here to the emergency room early this morning. CT scan of the brain revealed no acute intracranial process. Chest x-ray revealed no acute pulmonary process. White count 31.4. Hemoglobin 12.0. Platelets 232. D-dimer 1.0. Sodium 137.. BUN 15. Creatinine 0.52. Glucose 136. AST 97. ALT 94. Troponin 0.031, 0.077, 0.083. Procalcitonin 0.21. Viral screen was negative. CT angiogram revealed a questionable small filling defect in a motion limited ex am in the left lung base possibly representing a small subsegmental pulmonary emboli. No evidence of right heart strain. Right lower lung pulmonary mass compatible with known malignancy. She is seen today in consultation in the emergency department. She is currently sitting up in bed. She is dyspneic with minimal exertion. Dyspneic with conversation. She is requiring Airvo high flow oxygen at 40 L and 40% FiO2. She has been initiated on a heparin drip. Initiated on cefepime and azithromycin. She is on IV Solu-Medrol. She has been afebrile. Hemodynamically stable. The patient is seen today April 04, 2024 in follow-up. She is sitting up on the stretcher. Awake and alert in no acute distress. Breathing easier today compared to yesterday. She has been transitioned from Airvo high flow oxygen to 4 L/min per nasal cannula. She has been afebrile. Hemodynamically stable. Cul ture is pending. 14.5. Hemoglobin 11.3. Platelets 184. Sodium 136. Potassium 4.5. Bicarb 26. BUN 16. Creatinine 0.52. AST 48. ALT 75. Arterial blood gases on 40% FiO2 revealed a PaO2 of 133, pCO2 44, pH 7.40. She is continued on IV Solu-Medrol for suspected pneumonitis. She remains on a heparin drip due to a troponin leak and possible small subsegmental pulmonary emboli in the left lung base. Patient was seen and evaluated today on 04/05/2024, patient is standing up in the room, on room air, does not seem to be in any distress, O2 saturation 93% on room air, patient is feeling much better compared to how she felt when she came in. Patient has been receiving mostly steroids for her questionable reaction/pneumonitis from her immunotherapy, she has been receiving heparin for questionable pulmonary embolism although the CT angiogram of the chest is very vague even the radiologist is questioning the issue of pulmonary embolism nonetheless the patient will receive Eliquis to replace heparin at least for the next 1 month. And would recommend repeat CT angiogram of the chest on this patient. Patient is anxious to go home, she seems to be reluctant to go on high-dose prednisone, hence I would recommend a Medrol Dosepak. In the meantime the patient could be transition to Eliquis and consider discharging the patient home to follow-up with me and with oncology at a future date. WBC count is 13.4 hemoglobin is 12.0 electrolytes are normal renal profile is normal bicarb is 3 0. Seen today on 04/06/2024, patient is doing great, asymptomatic on room air, patient wants to go home. Apparently did not get discharged yesterday, although I have cleared the patient for discharge.WBC 13.4 hemoglobin 12 basic metabolic profile is normal renal profile is normal Objective - Vital Signs Vital signs: Vital Signs Temp 98.3 F 04/06/24 08:15 Pulse 90 04/06/24 11:29 Resp 18 04/06/24 11:29 BP 147/64 04/06/24 11:29 Pulse Ox 93 L 04/06/24 11:29 FiO2 42 04/04/24 08:37 Intake & Output 04/05/24 04/06/24 04/06/24 18:59 06:59 18:59 Intake Total 520 40 460 Balance 520 40 460 Weight 55.3 kg 55.2 kg Intake: IV 40 40 20 Invasive Line 1 20 20 10 Invasive Line 2 20 20 10 Oral 480 440 Other: Voiding Method Toilet Toilet Toilet # Voids 3 - Exam GENERAL EXAM: 78-year-old female in no distress on room air HEAD: Normocephalic. EYES: Normal reaction of pupils, equal size. NOSE: Clear with pink turbinates. THROAT: No erythema or exudates. NECK: No masses, no JVD. CHEST: No chest wall deformity. LUNGS: Clear bilaterally no rhonchi no wheezes CVS: S1 and S2 normal with no audible murmur, regular rhythm. ABDOMEN: No hepatosplenomegaly, normal bowel sounds, no guarding or rigidity. SKIN: No rashes CENTRAL NERVOUS SYSTEM: Alert oriented x 3 no gross focal deficit EXTREMITIES: There is no peripheral edema. No clubbing, no cyanosis. Peripheral pulses are intact. - Labs CBC & Chem 7: 04/05/24 06:12 04/05/24 06:12 Labs: Microbiology - Last 24 Hours (Table) 04/03/24 03:26 Blood Culture - Preliminary Blood Assessment and Plan Assessment: Impression Acute hypoxemic respiratory failure secondary to pneumonitis possible reaction to immunotherapy, small subsegmental pulmonary emboli versus motion artifact not significant enough to cause her symptoms Troponin leak, initiated on a heparin drip Nausea, vomiting, headache and shortness of breath possibly related to new immunotherapy given April 02, 2024 Recent diagnosis of small cell lung cancer with liver metastasis received chemotherapy April 02, 2024 Transaminitis secondary to above Previous coronary artery bypass grafting Anxiety Former smoker Hyperlipidemia Recommendation: Cleared again for discharge home Patient to go home on Medrol Dosepak and on Eliquis Recommend repeat CT angiogram of the chest in the next few weeks Follow-up on outpatient basis. Time with Patient: Less than 30
--- NOTE | 2024-04-06 16:57 | P.DS ---
Providers Date of admission: 04/03/24 06:48 Expected date of discharge: 04/06/24 Attending physician: Jose Carlos Hairston MD Consults: 04/03/24 07:47 Consult Physician Urgent Consulting Provider: Es Casanova Consult Reason/Comments: small cell lung cancer, pna? 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 In the ED, temperature is 99.2, pulse 129, respiratory rate 16, blood pressure 168/68, saturating at 95% on high flow nasal cannula at 35 L, FiO2 44%. WBC 31.4, band neutrophils 7%, sodium 137, creatinine 0.52, troponin 0.031, AST 97, ALT 94, ALP 136, TSH 0.448, free T41.15, lipase 29. Chest x-ray independently interpreted, possible right lower lobe opacity. EKG independently interpreted, shows sinus tachycardia with significant baseline artifact, T wave inversions in septal and inferior leads, nonspecific ST-T wave changes. Head CT did not show any acute process. Patient was given a dose of IV cefepime in the ED, IV steroids, breathing treatments. She is being admitted for acute hypoxic respiratory failure, possibly secondary to community-acquired pneumonia. CT angiogram showed right lower lung pulmonary mass, questionable small filling defects in th e left lung base possibly representing small subsegmental pulmonary emboli. Lower extremity Dopplers negative for DVT bilaterally. 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 Patient was seen in consultation with pulmonology and hematology. Patient was transition to apixaban for pulmonary embolism, patient was anxious about receiving high doses of apixaban due to bleeding issues in the past on this medication, therefore, we agreed that she would start on 5 mg twice daily instead of loading 10 mg twice daily for 7 days initially. Patient's lung findings were thought to be secondary to immunotherapy, therefore patient was treated with steroids while in house, transition to prednisone outpatient. Patient will follow-up with oncology, primary care physician, pulmonology as needed. I spent 40 minutes coordinating this discharge Gen: In NAD, non-toxic HEENT: normocephalic, atraumatic, hearing acuity is intant, mucous membranes moist CVS: perfusing all extremities well, no pitting edema, Respiratory: symmetric chest expansion, no accessory muscle use, GI: soft, NTTP, ND, : no suprapubic tenderness, no CVA tenderness MSK/Derm: no rashes, cyanosis Neuro: CN II-XII intact, no motor weakness, Psych: cooperative, euthymic mood, judgment and insight is intact Plan - Discharge Summary Discharge Rx Participant: Yes New Discharge Prescriptions: New Aspirin 81 mg PO DAILY #30 tab Apixaban [Eliquis] 5 mg PO BID #60 tab Famotidine [Pepcid] 20 mg PO BID #60 tab Acetaminophen Tab [Tylenol] 650 mg PO Q6HR PRN tab PRN Reason: Mild Pain Or Fever > 100.5 predniSONE [Deltasone] 40 mg PO DAILY #60 tab Calcium Carbonate [Tums] 1,000 mg PO Q4HR PRN tab PRN Reason: Dyspepsia Continue ursodioL [Ursodiol] 300 mg PO BID@ clonazePAM [KlonoPIN] 1 mg PO HS@1999 Atorvastatin [Lipitor] 40 mg PO PC-SUPPER Discharge Medication List Atorvastatin [Lipitor] 40 mg PO PC-SUPPER 04/03/24 [History] clonazePAM [KlonoPIN] 1 mg PO HS@199904/03/24 [History] ursodioL [Ursodiol] 300 mg PO BID@799,199904/03/24 [History] Acetaminophen Tab [Tylenol] 650 mg PO Q6HR PRN tab 04/06/24 [Rx] Apixaban [Eliquis] 5 mg PO BID #60 tab 04/06/24 [Rx] Aspirin 81 mg PO DAILY #30 tab 04/06/24 [Rx] Calcium Carbonate [Tums] 1,000 mg PO Q4HR PRN tab 04/06/24 [Rx] Famotidine [Pepcid] 20 mg PO BID #60 tab 04/06/24 [Rx] predniSONE [Deltasone] 40 mg PO DAILY #60 tab 04/06/24 [Rx] Follow up Appointment(s)/Referral(s): Nonstaff,Physician [Primary Care Provider] - 1-2 days Bruce Cao MD [STAFF PHYSICIAN] - 04/10/24 3:15 pm Discharge Disposition: HOME SELF-CARE
== END 2024-04-06 12:30 | disposition home or self-care (01) | DRG 871 ==
LOC: EC 02:03 → 3SCARD 06:48
PROVIDERS: ADMIT Internal Medicine; ATTEND Internal Medicine
DX: A41.9 Sepsis, unspecified organism (principal); I21.A1 Myocardial infarction type 2; I26.99 Other pulmonary embolism without acute cor pulmonale; J96.01 Acute respiratory failure with hypoxia; C78.7 Secondary malignant neoplasm of liver and intrahepatic bile duct; J44.0 Chronic obstructive pulmonary disease with (acute) lower respiratory infection; J70.4 Drug-induced interstitial lung disorders, unspecified; I48.91 Unspecified atrial fibrillation; T45.1X5A Adverse effect of antineoplastic and immunosuppressive drugs, initial encounter; F41.9 Anxiety disorder, unspecified; E78.5 Hyperlipidemia, unspecified; I25.10 Atherosclerotic heart disease of native coronary artery without angina pectoris; Z85.118 Personal history of other malignant neoplasm of bronchus and lung; Z79.01 Long term (current) use of anticoagulants; Z79.82 Long term (current) use of aspirin; Z87.891 Personal history of nicotine dependence; Z95.1 Presence of aortocoronary bypass graft; Z79.899 Other long term (current) drug therapy
CPT/HCPCS: 36415; 70450; 71045; 71046; 71275; 80053; 81001; 82150; 82330; 82805; 83605; 83690; 83735; 84100; 84145; 84439; 84443; 84484; 85025; 85379; 85610; 85730; 87040; 87449; 87636; 93005; 93306; 93970; 94640; 96361; 96365; 96366; 96372; 96375; 99291

== ENCOUNTER 2024-06-25 13:24 | Inpatient (IN) | payer MEDICARE ==
--- NOTE | 2024-06-25 13:53 | ED ---
General Adult HPI - General Chief complaint: Shortness of Breath Stated complaint: SOB Time Seen by Provider: 06/25/24 13:36 Source: patient, EMS Mode of arrival: EMS - History of Present Illness Initial comments: Patient is a pleasant 78-year-old female past medical history of CAD, atrial fibrillation, not currently anticoagulated, lung cancer, currently undergoing chemotherapy senting today for shortness of breath. The patient states that she got one of her "white blood cell shots" today and felt well afterwards. This morning she woke up and tried to walk across her apartment and felt too short of breath call EMS. Per EMS patient was in A-fib with RVR, received 1 L IV fluids prior to arrival. Patient currently denies any shortness of breath at rest, chest pain, dizziness, lightheadedness, palpitations, fevers, cough, hemoptysis, recent travel or surgeries, history of blood clots, abdominal pain, nausea, vomiting, diaphoresis. Patient states she was on medications for her A-fib however changed her diet and so took herself off of those medications including Eliquis. - Related Data Home Medications Medication Instructions Recorded Confirmed Atorvastatin [Lipitor] 40 mg PO W/SUPPER 04/03/24 06/25/24 clonazePAM [KlonoPIN] 1 mg PO HS@2100 04/03/24 06/25/24 Allergies Allergy/AdvReac Type Severity Reaction Status Date / Time No Known Allergies Allergy Verified 06/25/24 15:50 Review of Systems ROS Statement: Those systems with pertinent positive or pertinent negative responses have been documented in the HPI. ROS Other: All systems not noted in ROS Statement are negative. Past Medical History Past Medical History: Atrial Fibrillation, Cancer Additional Past Medical History / Comment(s): afib hx-stopped taking xarelto. chemotherapy and immunotherapy last april 02 2024 History of Any Multi-Drug Resistant Organisms: None Reported Past Surgical History: Cardiac Valve Replacement, Coronary Bypass/CABG, Heart Catheterization With Stent Additional Past Surgical History / Comment(s): Stents removed when bypass surgery was done at [facility] Past Anesthesia/Blood Transfusion Reactions: No Reported Reaction Past Psychological History: Anxiety Smoking Status: Former smoker Past Alcohol Use History: None Reported Past Drug Use History: None Reported General Exam - General Exam Comments Initial Comments: PE: CONSTITUTIONAL: no apparent distress, ill-appearing, nontoxic, awake and alert SKIN: Warm, dry, no jaundice, hives or petechiae EYES: Pupils are equally round, extraocular movements intact without nystagmus, clear conjunctiva, non-icteric sclera HENT: Normocephalic, atraumatic, dry mucus membranes, oropharynx clear without exudates NECK: , Full range of motion, normal appearance PULMONARY: Scant crackles in the mid lungs bilaterally, otherwise no wheezes, r honchi, or rales, normal excursion, no accessory muscle use and no stridor CARDIOVASCULAR: Tachycardia, irregularly irregular rhythm, cardiac exam limited by heart rate, normal S1 and S2. No appreciated murmurs, rubs or gallops. Strong radial pulses with intact distal perfusion. No lower extremity edema GASTROINTESTINAL: Soft, active bowel sounds throughout, non-tender, non- distended, no palpable masses, no rebound or guarding. No hepatosplenomegaly MUSCULOSKELETAL: Extremities have no gross deformity, no edema, redness, or swelling. No calf swelling NEUROLOGIC:_a/o x 3, GCS 15, normal mentation and speech. Moves all extremities x 4 without motor or sensory deficit PSYCHIATRIC:_normal mood and affect, thought process is clear and linear Course Vital Signs 06/25/24 06/25/24 06/25/24 13:29 13:38 14:00 Temperature 97.7 F Pulse Rate 160 H 163 H 152 H Respiratory 18 20 Rate Blood Pressure 112/94 127/73 O2 Sat by Pulse 100 97 96 Oximetry 06/25/24 06/25/24 06/25/24 14:17 14:24 14:33 Temperature Pulse Rate 129 H 83 96 Respiratory 16 18 18 Rate Blood Pressure 106/46 89/60 O2 Sat by Pulse 97 100 Oximetry 06/25/24 06/25/24 06/25/24 15:35 16:45 17:02 Temperature Pulse Rate 101 H 104 H Respiratory 20 20 Rate Blood Pressure 107/83 103/77 88/64 O2 Sat by Pulse 100 99 Oximetry EKG Findings - EKG Comments: EKG Findings:: EKG interpretation, atrial fibrillation with RVR, rate 143 bpm, QRS duration 110 ms, QT/QTc 283/366 ms, normal axis, compared to EKG performed on 04/03/2024, previously was incomplete right bundle branch block, no complete right bundle, today there is [address] elevation in aVR however this is improved from prior EKG, otherwise no significant changes from prior text Medical Decision Making - Medical Decision Making Was pt. sent in by a medical professional or institution (ARMANI Maldonado, FIELD SERVICE TECHNICIAN, urgent care, hospital, or [place] health care facility...) When possible be specific @ -No Did you speak to anyone other than the patient for history (EMS, parent, family, police, friend...)? What history was obtained from this source @ -No Did you review nursing and triage notes (agree or disagree)? Why? @ -I reviewed and agree with nursing and triage notes Were old charts reviewed (outside hosp., previous admission, EMS record, old EKG , old radiological studies, urgent care reports/EKG's, [place] health care facility records)? Report findings @Medical records reviewed Differential Diagnosis (chest pain, altered mental status, abdominal pain women, abdominal pain men, vaginal bleeding, weakness, fever, dyspnea, syncope, headache, dizziness, GI bleed, back pain, seizure, CVA, palpatations, mental health, musculoskeletal)? @Differential Palpitations Ventricular arrhythmias, atrial arrhythmias, myocardial infarction, anemia, thyrotoxicosis, electrolyte imbalance, hypokalemia, pulmonary embolism, pulmonary disease, drugs, alcohol, anxiety, stress.... This is not meant to be an all-inclusive list. EKG interpreted by me (3pts min.). @ -As above X-rays interpreted by me (1pt min.). @ -None done CT interpreted by me (1pt min.). @Right lower lobe mass/consolidation, decreased from CT scan done April 2024 U/S interpreted by me (1pt. min.). @ -None done What testing was considered but not performed or refused? (CT, X-rays, U/S, labs)? Why? @ -None What meds were considered but not given or refused? Why? @I did consider administering cefepime and obtaining blood cultures to leukocytosis and tachycardia however leukocytosis caused by patient's treatment from yesterday, discussed case with Dr. White, oncology, feels leukocytosis 2/2 patient's current treatment and is to be expected. patient currently afebrile without infectious symptoms Did you discuss the management of the patient with other professionals (professionals i.e. ARMANI Maldonado, FIELD SERVICE TECHNICIAN, lab, RT, psych nurse, elementary school social worker, reservoir engineering consultant, teacher, aviation safety officer, education managers)? Give summary @ Case discussed with Dr. White, please see below Was smoking cessation discussed for >3mins.? @ -No Was critical care preformed (if so, how long)? 35 minutes Were there social determinants of health that impacted care today? How? (Homelessness, low income, unemployed, alcoholism, drug addiction, transportation, low edu. Level, literacy, decrease access to med. care, correction, rehab)? @ -No Was there de-escalation of care discussed even if they declined (Discuss DNR or withdrawal of care, Hospice)? @ -No What co-morbidities impacted this encounter? (DM, HTN, Smoking, COPD, CAD, Cancer, CVA, ARF, Chemo, Hep., AIDS, mental health diagnosis, sleep apnea, morbid obesity)? @Lung Cancer, atrial fibrillation Was patient admitted / discharged? Hospital course, mention meds given and route, prescriptions, significant lab abnormalities, going to OR and other pertinent info. Admission- Patient is a pleasant 78-year-old female history of lung cancer currently receiving chemotherapy, presenting today for 1 morning of shortness of breath. A-fib with RVR on arrival. Able. Chronically ill-appearing but nontoxic, awake alert in no acute distress. Asymptomatic at this time at rest. Plan for Cardizem bolus, given patient has history of cancer, shortness of breath, tachycardia was previously on Eliquis but no longer, will obtain CT PE study. Labs significant for leukocytosis white blood cell 44.2 elevated neutrophils, I discussed with Dr. White and considered ordering blood cultures and cefepime however per Dr. Whitem this is to be expected with patient's shot from yesterday and antibiotics and blood cultures not necessary at this point. Currently pending CT PE study. On my assessment patient is well-appearing, blood pressure is 90/66 however MAP of 76, patient states that her blood pressure does typically run as low as 80's systolic, heart rate is controlled between 70 to 100 bpm. Plan for admission. Patient updated to plan of care. She is agreeable w/ plan CT PE study negative for PE, radiologist does comment "slight decrease increase in right lower lobe consolidation", I personally compared this to patient's prior CT scan on 04/03/2024, right lower lobe mass/consolidation appears decreased and smaller from prior. Case was discussed with Dr. Dorsey who can accept patient for admission. Undiagnosed new problem with uncertain prognosis? @ -No Drug Therapy requiring intensive monitoring for toxicity (Heparin, Nitro, Insulin, Cardizem)? @ -No Were any procedures done? @ -No Diagnosis/symptom? Atrial fibrillation with RVR Acute, or Chronic, or Acute on Chronic? Acute Uncomplicated (without systemic symptoms) or Complicated (systemic symptoms)? Complicated Exacerbation, Progression, or Severe Exacerbation? @ -No Poses a threat to life or bodily function? How? (Chest pain, USA, SC, pneumonia, PE, COPD, DKA, ARF, appy, cholecystitis, CVA, Diverticulitis, Homicidal, Suicidal, threat to staff... and all critical care pts) @ Yes, left unaddressed could lead to cardiac failure or cardiogenic shock - Lab Data Result diagrams: 06/25/24 13:53 06/25/24 13:53 Lab Results 06/25/24 06/25/24 06/25/24 Range/Units 13:53 13:53 13:53 WBC 44.2 H (3.8-10.6) k/uL RBC 2.94 L (3.80-5.40) m/uL Hgb 10.0 L (11.4-16.0) gm/dL Hct 30.3 L (34.0-46.0) % MCV 103.1 H (80.0-100.0) fL MCH 34.0 (25.0-35.0) pg MCHC 33.0 (31.0-37.0) g/dL RDW 15.2 (11.5-15.5) % Plt Count 171 (150-450) k/uL MPV 8.8 Neutrophils % 94 % Lymphocytes % 5 % Monocytes % 0 % Eosinophils % 1 % Basophils % 0 % Neutrophils # 41.7 H (1.3-7.7) k/uL Lymphocytes # 2.0 (1.0-4.8) k/uL Monocytes # 0.1 (0-1.0) k/uL Eosinophils # 0.3 (0-0.7) k/uL Basophils # 0.1 (0-0.2) k/uL Manual Slide Review Performed Macrocytosis Slight PT 11.0 (10.0-12.5) sec INR 1.0 (<1.2) APTT 21.7 L (22.0-30.0) sec Sodium 136 L (137-145) mmol/L Potassium 4.1 (3.5-5.1) mmol/L Chloride 101 (98-107) mmol/L Carbon Dioxide 30 (22-30) mmol/L Anion Gap 5 mmol/L BUN 19 H (7-17) mg/dL Creatinine 0.50 L (0.52-1.04) mg/dL Est GFR (CKD-EPI)AfAm >90 (>60 ml/min/1.73 sqM) Est GFR (CKD-EPI)NonAf >90 (>60 ml/min/1.73 sqM) Glucose 116 H (74-99) mg/dL Calcium 9.0 (8.4-10.2) mg/dL Magnesium 1.6 (1.6-2.3) mg/dL Total Bilirubin 0.9 (0.2-1.3) mg/dL AST 27 (14-36) U/L ALT 20 (4-34) U/L Alkaline Phosphatase 98 (38-126) U/L Troponin I (0.000-0.034) ng/mL Total Protein 6.1 L (6.3-8.2) g/dL Albumin 4.0 (3.5-5.0) g/dL TSH 1.200 (0.465-4.680) mIU/L 06/25/ Range/Units 13:53 WBC (3.8-10.6) k/uL RBC (3.80-5.40) m/uL Hgb (11.4-16.0) gm/dL Hct (34.0-46.0) % MCV (80.0-100.0) fL MCH (25.0-35.0) pg MCHC (31.0-37.0) g/dL RDW (11.5-15.5) % Plt Count (150-450) k/uL MPV Neutrophils % % Lymphocytes % % Monocytes % % Eosinophils % % Basophils % % Neutrophils # (1.3-7.7) k/uL Lymphocytes # (1.0-4.8) k/uL Monocytes # (0-1.0) k/uL Eosinophils # (0-0.7) k/uL Basophils # (0-0.2) k/uL Manual Slide Review Macrocytosis PT (10.0-12.5) sec INR (<1.2) APTT (22.0-30.0) sec Sodium (137-145) mmol/L Potassium (3.5-5.1) mmol/L Chloride (98-107) mmol/L Carbon Dioxide (22-30) mmol/L Anion Gap mmol/L BUN (7-17) mg/dL Creatinine (0.52-1.04) mg/dL Est GFR (CKD-EPI)AfAm (>60 ml/min/1.73 sqM) Est GFR (CKD-EPI)NonAf (>60 ml/min/1.73 sqM) Glucose (74-99) mg/dL Calcium (8.4-10.2) mg/dL Magnesium (1.6-2.3) mg/dL Total Bilirubin (0.2-1.3) mg/dL AST (14-36) U/L ALT (4-34) U/L Alkaline Phosphatase (38-126) U/L Troponin I 0.022 (0.000-0.034) ng/mL Total Protein (6.3-8.2) g/dL Albumin (3.5-5.0) g/dL TSH (0.465-4.680) mIU/L Disposition Clinical Impression: Atrial fibrillation with RVR Disposition: ADMITTED IP TO THIS HOSP Condition: Good
[2024-06-25] MEDS: ASPIRIN 81 MG PO STA (13:56)
[2024-06-25] MEDS: SODIUM CHLORIDE 0.9% 1,000 ML IV STA (13:59)
[2024-06-25 14:00] LABS: Basophils # (A) 0.1 k/uL (0-0.2); Basophils % (A) 0 %; Eosinophils # (A) 0.3 k/uL (0-0.7); Eosinophils % (A) 1 %; HCT 30.3 % (34.0-46.0); Lymphocytes % (A) 5 %; MCV 103.1 fL (80.0-100.0); Macrocytosis Slight; Mean Platelet Volume 8.8; Monocytes # (A) 0.1 k/uL (0-1.0); Monocytes % (A) 0 %; Neutrophils # (A) 41.7 k/uL (1.3-7.7); Neutrophils % (A) 94 %; Platelet Count 171 k/uL (150-450); RBC 2.94 m/uL (3.80-5.40); RDW 15.2 % (11.5-15.5); WBC 44.2 k/uL (3.8-10.6)
[2024-06-25 14:12] LABS: ALT 20 U/L (4-34); African American GFR (CKD) >90 (>60 ml/min/1.73 sqM); Anion Gap 5 mmol/L; Blood Urea Nitrogen 19 mg/dL (7-17); Carbon Dioxide 30 mmol/L (22-30); Chloride 101 mmol/L (98-107); Glucose 116 mg/dL (74-99); Magnesium 1.6 mg/dL (1.6-2.3); Non-African American GFR(CKD) >90 (>60 ml/min/1.73 sqM); Sodium 136 mmol/L (137-145); Total Bilirubin 0.9 mg/dL (0.2-1.3); Total Protein 6.1 g/dL (6.3-8.2)
[2024-06-25 14:18] LABS: Partial Thromboplastin Time 21.7 sec (22.0-30.0)
[2024-06-25] MEDS: DILTIAZEM DRIP BOLUS FROM BAG 1 MG SOLN IV ONE (14:20)
[2024-06-25] MEDS: DILTIAZEM 125 MG in SODIUM CHLORIDE 0.9% 100 ML IV SCH (14:23)
[2024-06-25 14:24] LABS: AST 27 U/L (14-36); Alkaline Phosphatase 98 U/L (38-126); Potassium 4.1 mmol/L (3.5-5.1)
[2024-06-25] MEDS: CEFEPIME 1 GM in SODIUM CHLORIDE 0.9% 50 ML IVPB STA (15:08)
[2024-06-25] MEDS ORDERED: traMADol 50 MG TAB PO PRN (15:28)
[2024-06-25] MEDS ORDERED: NALOXONE 0.4 MG/ML 1 ML VIAL IV PRN (15:28)
[2024-06-25] MEDS: SODIUM CHLORIDE 0.9% 1,000 ML IV SCH (15:38)
--- NOTE | 2024-06-25 15:50 | CT ---
EXAMINATION TYPE: CT chest angio for PE DATE OF EXAM: 06/25/2024 3:22 PM COMPARISON: 04/03/2024 CLINICAL INDICATION: Female, 78 years old with history of Hx lung CA, tachycardic, short of breath; P atient presents to by EMS from home with complaints of SOB. Patient has history of small cell lung cancer, last chemo was Monday. TECHNIQUE/CONTRAST: CTA scan of the thorax is performed with IV Contrast, patient injected with 100cc mL of , MIP images are created and reviewed these are created on a separate workstation.. CT DLP: 253.9 mGycm, Automated exposure control for dose reduction was used. FINDINGS: Lungs/Pleura: No evidence of focal consolidation, pleural effusion or pneumothorax. Right lower lobe consolidation with a masslike measuring in totality 63 x 33 x 43 mm previously measuring 87 x 47 x 48 mm. There is Poor visualization of the arterial pulmonary vasculature into this region of consolidat ion. Airway: Large airways are patent. Heart: Heart is within normal limits for size. Severe aortic valve calcifications as well as moderate to severe coronary artery calcifications. Vasculature: Near ectasia of the ascending thoracic aorta with the aorta measuring up to 39 mm. There is no evidence for a filling defect within the pulmonary vasculature to suggest acute pulmonary embo lism. The pulmonary artery is of normal size. Mediastinum: No gross evidence of adenopathy. Musculoskeletal: Mild degenerative disc disease changes are present throughout the thoracolumbar spin e. Soft Tissues/lymph nodes: Unremarkable. Lower neck: No significant findings. Upper Abdomen: No significant findings. IMPRESSION: 1. No evidence of pulmonary embolism. No evidence for acute airspace process. 2. Slight decrease increase in size of right lower lung consolidation compared to prior. No evidence for airspace consolidation. 3. Severe aortic valve calcifications. [facility], , 06/25/2024 3:48 PM
--- NOTE | 2024-06-25 17:04 | XR ---
EXAMINATION TYPE: XR chest 1V portable DATE OF EXAM: 06/25/2024 4:37 PM COMPARISON: Previous chest radiograph dated 04/04/2024. CLINICAL INDICATION: Female, 78 years old with history of chf; [facility] TECHNIQUE: XR chest 1V portable Frontal view of the chest. FINDINGS: Cardiomegaly. Median sternotomy wires. Right lower lobe masslike consolidation again noted, similar to prior studies. No sizable pleural effusion. No pneumothorax. No acute osseous and amounted. IMPRESSION: No acute cardiopulmonary disease/process. [facility], , 06/25/2024 5:01 PM
[2024-06-25 17:05] LABS: Appearance,Urine Clear (Clear); Bacteria,Urine Rare /hpf; Bilirubin,Urine Negative (Negative); Blood,Urine Negative (Negative); Color,Urine Colorless; Glucose,Urine (UA) Negative (Negative); Hyaline Casts,Urine 1 /lpf (0-2); Ketones,Urine Negative (Negative); Leukocyte Esterase,Urine Trace (Negative); Mucus,Urine Rare /hpf; Nitrite,Urine Negative (Negative); PH, Urine 5.5 (5.0-8.0); Protein,Urine Negative (Negative); RBC,Urine 110 /hpf (0-5); Specific Gravity,Urine 1.033 (1.001-1.035); Urobilinogen,Urine <2.0 mg/dL (<2.0); WBC,Urine 5 /hpf (0-5)
[2024-06-25] MEDS: ATORVASTATIN 40 MG TAB PO SCH (17:07)
[2024-06-25] MEDS: clonazePAM 1 MG TAB PO SCH (20:44)
[2024-06-25] MEDS: APIXABAN 5 MG TAB PO SCH (20:44)
[2024-06-25] MEDS: FAMOTIDINE 20 MG TAB PO SCH (20:44)
--- NOTE | 2024-06-26 00:10 | HP ---
HISTORY AND PHYSICAL CHIEF COMPLAINT: Shortness of breath. HISTORY OF PRESENT ILLNESS: This is a 78-year-old woman with a past medical history of multiple medical problems including atrial fibrillation, had chemotherapy for cancer including immunotherapy. Because of the thrombocytopenia, the patient apparently had Neupogen injection at this time. The patient is currently complaining of shortness of breath. The patient has atrial fibrillation with a heart rate of 170. After Cardizem, the heart rate is improving at this time. There is no history of any fever, rigors, or chills at this time. 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 Rest of the history and rest of the chart is also reviewed. HOME MEDICATIONS: Reviewed and include Lipitor. ALLERGIES: None. FAMILY HISTORY: No history of heart disease or strokes in the family. SOCIAL HISTORY: Previous history of smoking. REVIEW OF SYSTEMS: A 14-point review of systems is negative except as mentioned earlier. PHYSICAL EXAMINATION: VITAL SIGNS: Pulse is 96, blood pressure 89/60, respirations 18. HEENT: Conjunctivae are normal. NECK: No JVD. CARDIOVASCULAR: S1, S2. Tachycardic. Irregular. RESPIRATIONS: Breath sounds diminished at the bases. ABDOMEN: Soft, nontender. LEGS: No edema. LABORATORY DATA: WBC 44.2. ASSESSMENT: 1. Atrial fibrillation with fast ventricular rate. 2. 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 3. Coronary artery disease with coronary artery bypass graft surgery. 4. Coronary artery disease with stent. 5. Cardiac valve replacement. 6. Atrial fibrillation history. 7. History of anxiety. RECOMMENDATIONS AND DISCUSSION: Recommended to continue current management and treatment. Otherwise, I would recommend to continue the Cardizem drip. The white count is elevated, possibly because of the injections. Otherwise, a 2D echo done in April this year showed bioprosthetic aortic valve and severe tricuspid regurgitation and [id number] pulmonary hypertension. We will continue to monitor. Cardiology and Oncology were consulted and further recommendations to follow. Home medications also will be continued. MMODL / IJN: [id number] /
[2024-06-26 06:26] LABS: Basophils % (A) 0 %; Eosinophils # (A) 0.1 k/uL (0-0.7); Eosinophils % (A) 1 %; Hypochromasia Slight; Lymphocytes # (A) 1.6 k/uL (1.0-4.8); Lymphocytes % (A) 8 %; MCH 34.7 pg (25.0-35.0); MCHC 33.4 g/dL (31.0-37.0); MCV 103.6 fL (80.0-100.0); Macrocytosis Slight; Mean Platelet Volume 8.8; Monocytes # (A) 0.1 k/uL (0-1.0); Monocytes % (A) 0 %; Neutrophils % (A) 91 %; Platelet Count 115 k/uL (150-450); RBC 2.22 m/uL (3.80-5.40); WBC 20.9 k/uL (3.8-10.6)
[2024-06-26 06:29] LABS: HGB 7.7 gm/dL (11.4-16.0)
[2024-06-26 06:48] LABS: African American GFR (CKD) >90 (>60 ml/min/1.73 sqM); Anion Gap 0 mmol/L; Blood Urea Nitrogen 14 mg/dL (7-17); Calcium 7.6 mg/dL (8.4-10.2); Carbon Dioxide 25 mmol/L (22-30); Chloride 111 mmol/L (98-107); Glucose 81 mg/dL (74-99); Non-African American GFR(CKD) >90 (>60 ml/min/1.73 sqM); Potassium 3.4 mmol/L (3.5-5.1); Sodium 136 mmol/L (137-145)
[2024-06-26] MEDS: DILTIAZEM 125 MG in SODIUM CHLORIDE 0.9% 100 ML IV SCH (07:33)
[2024-06-26] MEDS: METOPROLOL TARTRATE 25 MG TAB PO SCH (08:15)
--- NOTE | 2024-06-26 11:40 | CONS ---
CONSULTATION CHIEF COMPLAINT: Shortness of breath with activity. HISTORY OF PRESENT ILLNESS: Steffi is a 78-year-old lady with history of small-cell lung cancer, currently on chemotherapy including immunotherapy, paroxysmal atrial fibrillation. The patient presented to hospital with shortness of breath with very little activity and was found to be in atrial fibrillation with rapid ventricular rate for which Cardiology has been consulted. At the time of my evaluation, she is in atrial fibrillation with poorly controlled ventricular rate with heart rate varying from 110 to 130 beats per minute. The patient used to be on an anticoagulant that she stopped. Her history is significant for coronary artery disease for which she underwent bypass surgery and also had an aortic valve replacement. She was admitted to hospital in April with respiratory failure. At the time of my evaluation, the patient appears comfortable at rest, still is in atrial fibrillation with poorly controlled ventricular rate. She has significant anemia with a hemoglobin of 7.7. This morning, it was 10. On admission, platelet count was 170. This morning, it was 115. Creatinine is 0.4. Troponins are negative. TSH is normal at 1.2. The plan is to increase the dose of Cardizem to better control her heart rate, start her on metoprolol. 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 PAST MEDICAL HISTORY: Significant for coronary artery disease, status post bypass surgery, history of aortic valve replacement, paroxysmal atrial fibrillation, and lung CA. MEDICATIONS: At home included: 1. Immunotherapy. 2. Lipitor. 3. Atorvastatin. ALLERGIES: There are no known drug allergies. FAMILY HISTORY: Negative for premature coronary artery disease. SOCIAL HISTORY: Negative for current smoking, EtOH abuse, or drug abuse. REVIEW OF SYSTEMS: HEENT: Unremarkable. CARDIAC: As described above. RESPIRATORY: As described above. GI: Negative. GENITOURINARY: Negative. ALLERGY/IMMUNOLOGY: Negative. SKIN: Negative. MUSCULOSKELETAL: Significant for joint pains. PSYCHOSOCIAL: Negative. DERM: Negative. CONSTITUTIONAL: Negative. Rest of the system review is negative. LABS: Showed that the troponins are negative. Hemoglobin is low. Platelet count is low. CT scan of the chest is negative for pulmonary embolism. EKG shows atrial fibrillation with rapid ventricular rate and right bundle branch block. ASSESSMENT: 1. Atrial fibrillation with rapid ventricular rate. 2. Coronary artery disease status post CABG. 3. History of aortic valve replacement. 4. History of lung CA, on immunotherapy. 5. Anemia. 6. Thrombocytopenia. PLAN: I will adjust the Cardizem dose, add metoprolol. Continue with Eliquis if okay with Oncology. MMALLYSSAL / IJN: [id number] /
--- NOTE | 2024-06-26 15:24 | P.CONS ---
History of Present Illness - Reason for Consult Consult date: 06/26/24 Extensive stage small cell lung cancer - Chief Complaint Dyspnea - History of Present Illness Ms. Castañeda is a 78-year-old woman with a past medical history significant for extensive stage small cell lung cancer status post cycle 5 of carboplatin/etoposide/Tecentriq on 06/21/2024 and received colony growth stimulating factor on 06/24/2024 who presented with increased dyspnea. She contacted myself on 06/25/2024 and reported dyspnea on exertion as well as on rest. She was advised to present to the ED for additional management. On presentation, she was noted to be tachycardic with heart rate up to 163 and systolic blood pressure between the upper 80s to low 100s and was otherwise afebrile. EKG noted atrial fibrillation with RVR. CMP noted no acute electrolyte abnormalities with creatinine 0.50 and troponin negative x 2. CBC noted WBC 44.2 (ANC 41.7), hemoglobin 10 (MCV 103.1), platelets 171. Urinalysis noted trace leukocyte esterase with negative nitrite. She was given a 1 L bolus of normal saline and started on diltiazem drip with subsequent normalization of her heart rate. Metoprolol 25 mg by mouth 3 times daily along with recommendation for Eliquis 5 mg p.o. twice daily was made although Eliquis was held on repeat hemoglobin today for 7.7. Clinically, she feels improved since admission. She does not having symptomatic palpitations, but denies any melena, hematochezia, or bright blood per rectum. Review of Systems 14 point review of systems was conducted with pertinent positives and negatives as noted per HPI Past Medical History Past Medical History: Atrial Fibrillation, Cancer Additional Past Medical History / Comment(s): afib hx-stopped taking xarelto. chemotherapy and immunotherapy last april 02 2024 History of Any Multi-Drug Resistant Organisms: None Reported Past Surgical History: Cardiac Valve Replacement, Coronary Bypass/CABG, Heart Catheterization With Stent Additional Past Surgical History / Comment(s): Stents removed when bypass surgery was done at [facility] Past Anesthesia/Blood Transfusion Reactions: No Reported Reaction Past Psychological History: Anxiety Smoking Status: Former smoker Past Alcohol Use History: None Reported Past Drug Use History: None Reported Medications and Allergies Home Medications Medication Instructions Recorded Confirmed Type Atorvastatin [Lipitor] 40 mg PO W/SUPPER 04/03/24 06/25/24 History clonazePAM [KlonoPIN] 1 mg PO HS@2100 04/03/24 06/25/24 History Allergies Allergy/AdvReac Type Severity Reaction Status Date / Time No Known Allergies Allergy Verified 06/25/24 15:50 Physical Exam Vitals: Vital Signs Temp Pulse Pulse Resp BP Pulse Ox 06/26/24 10:09 102 H 18 109/52 94 L 06/26/24 07:15 101 H 06/26/24 06:24 84 18 101/73 95 06/26/24 05:00 89 18 102/51 95 06/26/24 04:00 95 18 91/48 98 06/26/24 02:00 89 18 102/47 96 06/26/24 00:00 101 H 18 96/51 96 06/25/24 21:34 93 18 97/60 96 06/25/24 19:45 90 18 101/67 96 06/25/24 18:21 98.3 F 90 16 90/52 99 06/25/24 17:02 104 H 20 88/64 99 06/25/24 16:45 103/77 06/25/24 15:35 101 H 20 107/83 100 06/25/24 14:33 96 18 89/60 100 06/25/24 14:24 83 18 06/25/24 14:17 129 H 16 106/46 97 06/25/24 14:00 152 H 20 127/73 96 06/25/24 13:38 163 H 97 06/25/24 13:29 97.7 F 160 H 18 112/94 100 Intake and Output 06/25/24 06/26/24 06/26/24 22:59 06:59 14:59 Intake Total 82.083 Balance 82.083 Intake: Intake, IV Titration 82.083 Amount Diltiazem 125 mg In 82.083 Sodium Chloride 0.9% 100 ml @ 5 MG/HR 5 mls/hr IV .Q24H [facility] Rx#:[id number] - Constitutional Fatigued appearing General appearance: cooperative - Respiratory Respiratory: bilateral: CTA - Cardiovascular Rhythm: irregularly irregular - Gastrointestinal General gastrointestinal: no distended, soft, no tenderness - Neurologic Neurologic: CNII-XII intact Results CBC & Chem 7: 06/26/24 06:10 06/26/24 06:10 Labs: Abnormal Lab Results - Last 24 Hours (Table) 06/25/24 06/25/24 06/25/24 Range/Units 13:53 13:53 13:53 WBC 44.2 H (3.8-10.6) k/uL RBC 2.94 L (3.80-5.40) m/uL Hgb 10.0 L (11.4-16.0) gm/dL Hct 30.3 L (34.0-46.0) % MCV 103.1 H (80.0-100.0) fL Plt Count (150-450) k/uL Neutrophils # 41.7 H (1.3-7.7) k/uL APTT 21.7 L (22.0-30.0) sec Sodium 136 L (137-145) mmol/L Potassium (3.5-5.1) mmol/L Chloride (98-107) mmol/L BUN 19 H (7-17) mg/dL Creatinine 0.50 L (0.52-1.04) mg/dL Glucose 116 H (74-99) mg/dL Calcium (8.4-10.2) mg/dL Total Protein 6.1 L (6.3-8.2) g/dL Ur Leukocyte Esterase (Negative) Urine RBC (0-5) /hpf Urine Bacteria (None) /hpf Urine Mucus (None) /hpf 06/25/24 06/26/24 06/26/24 Range/Units 16:55 06:10 06:10 WBC 20.9 H (3.8-10.6) k/uL RBC 2.22 L (3.80-5.40) m/uL Hgb 7.7 L D (11.4-16.0) gm/dL Hct 23.0 L (34.0-46.0) % MCV 103.6 H (80.0-100.0) fL Plt Count 115 L (150-450) k/uL Neutrophils # 19.0 H (1.3-7.7) k/uL APTT (22.0-30.0) sec Sodium 136 L (137-145) mmol/L Potassium 3.4 L (3.5-5.1) mmol/L Chloride 111 H (98-107) mmol/L BUN (7-17) mg/dL Creatinine 0.49 L (0.52-1.04) mg/dL Glucose (74-99) mg/dL Calcium 7.6 L (8.4-10.2) mg/dL Total Protein (6.3-8.2) g/dL Ur Leukocyte Esterase Trace H (Negative) Urine RBC 110 H (0-5) /hpf Urine Bacteria Rare H (None) /hpf Urine Mucus Rare H (None) /hpf Assessment and Plan (1) Atrial fibrillation with RVR Current Visit: Yes Status: Acute Code(s): I48.91 - UNSPECIFIED ATRIAL FIBRILLATION SNOMED Code(s): 543343204239872 (2) Extensive stage primary small cell carcinoma of lung Current Visit: Yes Status: Acute Code(s): C34.90 - MALIGNANT NEOPLASM OF UNSP PART OF UNSP BRONCHUS OR LUNG SNOMED Code(s): 276437234016921 (3) Anemia associated with chemotherapy Current Visit: Yes Status: Acute Code(s): D64.81 - ANEMIA DUE TO ANTINEOPLASTIC CHEMOTHERAPY; T45.1X5A - ADVERSE EFFECT OF ANTINEOPLASTIC AND IMMUNOSUP DRUGS, INIT SNOMED Code(s): 736278017576791 (4) Chemotherapy-induced thrombocytopenia Current Visit: Yes Status: Acute Code(s): D69.59 - OTHER SECONDARY THROMBOC YTOPENIA; T45.1X5A - ADVERSE EFFECT OF ANTINEOPLASTIC AND IMMUNOSUP DRUGS, INIT SNOMED Code(s): 382895581 (5) Neutrophilic leukocytosis Current Visit: Yes Status: Acute Code(s): D72.828 - OTHER ELEVATED WHITE BLOOD CELL COUNT SNOMED Code(s): 580344754 Plan: #Atrial fibrillation with RVR -Presented with increased dyspnea and tachycardia with heart rate into the 160s -Improved heart rates on diltiazem drip -Management of atrial fibrillation per primary and cardiology teams, appreciate their assistance -Given there is no evidence for blood loss, her anemia is likely secondary to chemotherapy with her platelets being at 115. Anticoagulation with Eliquis can be resumed from a hematology perspective -I do agree with transfusion of 1 unit of irradiated packed red blood cells as this could help treat atrial fibrillation -Hold Eliquis for platelets less than 50,000 #Macrocytic anemia, thrombocytopenia, neutrophillic leukocytosis -Macrocytic anemia and thrombocytopenia are secondary to chemotherapy -Neutrophilic leukocytosis is secondary to colony growth stimulating factor given on 06/24/2024 -Continue to monitor CBC daily -Transfusion of 1 unit irradiated packed red blood cells -Transfuse for hemoglobin less than 8 and/or platelets less than 10,000 and/or bleeding #Extensive stage small cell lung cancer -Noted to have partial response to treatment on PET/CT in early June 2024 following 4 cycles of treatment -Received cycle 5 of treatment from 06/19/2024 through 06/21/2024 -Cycle 6 planned for 07/09/2023 through 07/11/2023 with repeat PET/CT Micaela Cao MD
--- NOTE | 2024-06-26 18:43 | PN ---
PROGRESS NOTE DATE OF SERVICE: 06/26/2024 SUBJECTIVE: This is a 78-year-old woman who was admitted with atrial fibrillation, also had some shortness of breath. The rate is high. The patient reports habitual low blood pressure previously. There is no history of fever or rigors. PAST MEDICAL HISTORY: Reviewed. REVIEW OF SYSTEMS: A 14-point review of systems is negative except as mentioned earlier. CURRENT MEDICATIONS: Reviewed. PHYSICAL EXAMINATION: VITAL SIGNS: Pulse is 102, blood pressure 100/52, respirations 18. HEENT: Conjunctivae normal. NECK: No JVD. CARDIOVASCULAR: S1, S2. RESPIRATION: A few scattered rhonchi and crackles. ABDOMEN: Soft. NERVOUS SYSTEM: Nonfocal. LABORATORY DATA: Sodium ntd, hemoglobin 7.7. WBC 20.9. ASSESSMENT: 1. Atrial fibrillation with fast ventricular rate. 2. 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 3. Elevated WBC possibly secondary to G-CSF stimulation. 4. Anemia. 5. Coronary artery disease, coronary artery bypass grafting. 6. History of CAD stent. 7. Cardiac valve replacement. 8. Atrial fibrillation history. 9. History of anxiety. RECOMMENDATIONS AND DISCUSSION: Recommend to continue current management and treatment. I would recommend 1 unit transfusion with cautious diuretics because of the severe symptomatic anemia and closely follow. The patient is currently on metoprolol. We will continue to monitor. The blood pressure is not stable. The patient may need to be on other agent such as amiodarone. MMODL / IJN: [id number] / MTDD
[2024-06-27 03:33] LABS: Basophils # (A) 0.1 k/uL (0-0.2); Basophils % (A) 0 %; Eosinophils # (A) 0.1 k/uL (0-0.7); Eosinophils % (A) 1 %; HCT 29.6 % (34.0-46.0); Lymphocytes # (A) 2.1 k/uL (1.0-4.8); Lymphocytes % (A) 16 %; MCH 33.5 pg (25.0-35.0); MCHC 32.7 g/dL (31.0-37.0); MCV 102.6 fL (80.0-100.0); Macrocytosis Slight; Mean Platelet Volume 9.5; Monocytes # (A) 0.1 k/uL (0-1.0); Monocytes % (A) 1 %; Neutrophils % (A) 82 %; Platelet Count 104 k/uL (150-450); RBC 2.88 m/uL (3.80-5.40); RDW 15.4 % (11.5-15.5); WBC 13.4 k/uL (3.8-10.6)
[2024-06-27 03:45] LABS: HGB 9.7 gm/dL (11.4-16.0)
[2024-06-27 03:49] LABS: African American GFR (CKD) >90 (>60 ml/min/1.73 sqM); Anion Gap 3 mmol/L; Blood Urea Nitrogen 13 mg/dL (7-17); Calcium 8.5 mg/dL (8.4-10.2); Carbon Dioxide 26 mmol/L (22-30); Chloride 106 mmol/L (98-107); Glucose 85 mg/dL (74-99); Non-African American GFR(CKD) >90 (>60 ml/min/1.73 sqM); Potassium 3.7 mmol/L (3.5-5.1); Sodium 135 mmol/L (137-145)
[2024-06-27 14:52] VITALS: BMI 19.3
[2024-06-27] MEDS: DEXTROSE 5% IN WATER 100 ML with AMIODARONE 150 MG IV ONE (15:34)
[2024-06-27] MEDS: METOPROLOL TARTRATE 25 MG TAB PO STA (15:48)
--- NOTE | 2024-06-27 15:48 | P.PN ---
Subjective Progress Note Date: 06/27/24 HPI: Past medical history of CAD status post CABG, aortic valve replacement, paroxysmal atrial fibrillation and lung cancer. She is undergoing chemotherapy for her small cell lung cancer. SUBJECTIVE: Patient continues to be in atrial fibrillation with RVR with minimal response to IV Cardizem drip. He denies any chest pain chest pressure. She appears euvolemic PHYSICAL EXAMINATION Vital signs reviewed. Head: Normocephalic. Eyes: Sclerae nonicteric. Neck: Brisk carotid upstroke, no jugular venous distention. Lungs: Clear to auscultation. Heart: Irregularly irregular S1-S2, no S3, no murmur or rub. Abdomen: Soft nontender, bowel sounds present, Extremities: No edema, Neuro: Alert, oriented, no focal neurological deficits. Detailed neuro exam was not performed. ASSESSMENT Atrial fibrillation with RVR Prior history of CAD status post CABG and surgical aortic valve replacement Small cell lung cancer, extensive stage, status post cycle 5 of carboplatin/Tecentriq/etoposide along with call me growth stimulating factor Leukocytosis most likely due to colony growth stimulating factor Anemia status post 1 unit blood transfusion. PLAN Discontinue Cardizem drip. Start amiodarone drip with 150 mg bolus Increase metoprolol to 50 mg twice daily Obtain updated echocardiogram On Eliquis 5 mg twice daily. Will continue. Monitor signs of bleeding. Monitor hemoglobin levels for any significant drops. Tru Collado MD, FACC, RPVI Thank you for allowing [facility] to participate in this patient's care. Please contact us in case of any followup questions. Objective - Vital Signs Vital signs: Vital Signs Temp 98.0 F 06/27/24 08:00 Pulse 88 06/27/24 12:00 Resp 16 06/27/24 14:00 BP 138/62 06/27/24 15:45 Pulse Ox 95 06/27/24 12:00 FiO2 Intake & Output 06/26/24 06/27/24 06/27/24 18:59 06:59 18:59 Intake Total 0 795 1620 Balance 0 795 1620 Weight 54.431 kg 54.5 kg 54.5 kg Intake: Intake, IV Titration 125 900 Amount Diltiazem 125 mg In 125 Sodium Chloride 0.9% 100 ml @ 7.5 MG/HR 7.5 mls/hr IV .[id number] [facility] Rx#: [id number] Sodium Chloride 0.9% 1, 900 000 ml @ 75 mls/hr IV . [id number] [facility] Rx#:[id number] Oral 360 720 Blood Product 0 310 Rc As-1 Unit 0 310 [id number] Other: Voiding Method Toilet Toilet # Voids 2 2 - Labs CBC & Chem 7: 06/27/24 02:45 06/27/24 02:45 Labs: Abnormal Lab Results - Last 24 Hours (Table) 06/26/24 06/27/24 06/27/24 Range/Units 14:59 02:45 02:45 WBC 13.4 H (3.8-10.6) k/uL RBC 2.88 L (3.80-5.40) m/uL Hgb 9.7 L D (11.4-16.0) gm/dL Hct 29.6 L (34.0-46.0) % MCV 102.6 H (80.0-100.0) fL Plt Count 104 L (150-450) k/uL Neutrophils # 11.0 H (1.3-7.7) k/uL Sodium 135 L (137-145) mmol/L Creatinine 0.46 L (0.52-1.04) mg/dL Crossmatch See Detail
[2024-06-27] MEDS: AMIODARONE 360 MG in DEXTROSE 5% IN WATER 200 ML IV ONE (15:50)
[2024-06-27] MEDS: MAGNESIUM SULFATE-D5W PMX 1 GM in DEXTROSE/WATER 1 100ML.BAG IVPB SCH (17:38)
--- NOTE | 2024-06-27 19:52 | P.PN ---
Subjective Progress Note Date: 06/27/24 Principal diagnosis: a-fib, met NSCLC In f/u pt still feels her heart is not in rhythm, denies SOB, chest pain, swelling in the legs. No other c/o. Objective - Vital Signs Vital signs: Vital Signs Temp 98.0 F 06/27/24 08:00 Pulse 133 H 06/27/24 08:00 Resp 16 06/27/24 08:00 BP 112/55 06/27/24 08:00 Pulse Ox 96 06/27/24 08:00 FiO2 Intake & Output 06/26/24 06/27/24 06/27/24 18:59 06:59 18:59 Intake Total 0 795 720 Balance 0 795 720 Weight 54.431 kg 54.5 kg Intake: Intake, IV Titration 125 Amount Diltiazem 125 mg In 125 Sodium Chloride 0.9% 100 ml @ 7.5 MG/HR 7.5 mls/hr IV .[id number] [facility] Rx#: [id number] Oral 360 720 Blood Product 0 310 Rc As-1 Unit 0 310 [id number] Other: Voiding Method Toilet Toilet # Voids 2 - Constitutional General appearance: Present: average body habitus, cooperative, no acute distress - EENT Eyes: Present: anicteric sclerae, EOMI ENT: Present: hearing grossly normal - Respiratory Details: resp even and unlabored - Cardiovascular Details: skin warm and dry to touch - Peripheral edema leg Peripheral Edema: bilateral: None - Integumentary Integumentary: Present: normal - Neurologic Neurologic: Present: CNII-XII intact - Musculoskeletal Musculoskeletal: Present: strength equal bilaterally - Psychiatric Psychiatric: Present: A&O x's 3, appropriate affect, intact judgment & insight - Labs CBC & Chem 7: 06/27/24 02:45 06/27/24 02:45 Labs: Abnormal Lab Results - Last 24 Hours (Table) 06/26/24 06/27/24 06/27/24 Range/Units 14:59 02:45 02:45 WBC 13.4 H (3.8-10.6) k/uL RBC 2.88 L (3.80-5.40) m/uL Hgb 9.7 L D (11.4-16.0) gm/dL Hct 29.6 L (34.0-46.0) % MCV 102.6 H (80.0-100.0) fL Plt Count 104 L (150-450) k/uL Neutrophils # 11.0 H (1.3-7.7) k/uL Sodium 135 L (137-145) mmol/L Creatinine 0.46 L (0.52-1.04) mg/dL Crossmatch See Detail Assessment and Plan (1) Atrial fibrillation with RVR Current Visit: Yes Status: Acute Priority: High Code(s): I48.91 - UNSPECIFIED ATRIAL FIBRILLATION SNOMED Code(s): 260551715604675 (2) Anemia associated with chemotherapy Current Visit: Yes Status: Acute Priority: Medium Code(s): D64.81 - ANEMIA DUE TO ANTINEOPLASTIC CHEMOTHERAPY; T45.1X5A - ADVERSE EFFECT OF ANTINEOPLASTIC AND IMMUNOSUP DRUGS, INIT SNOMED Code(s): 146222407053887 (3) Chemotherapy-induced thrombocytopenia Current Visit: Yes Status: Acute Priority: Medium Code(s): D69.59 - OTHER SECONDARY THROMBOCYTOPENIA; T45.1X5A - ADVERSE EFFECT OF ANTINEOPLASTIC AND IMMUNOSUP DRUGS, INIT SNOMED Code(s): 452413979 (4) Extensive stage primary small cell carcinoma of lung Current Visit: Yes Status: Acute Priority: High Code(s): C34.90 - MALIGNANT NEOPLASM OF UNSP PART OF UNSP BRONCHUS OR LUNG SNOMED Code(s): 870426651885553 Plan: Atrial fibrillation with RVR -Presented with increased dyspnea and tachycardia with heart rate into the 160s -Improved heart rates on diltiazem drip -Management of atrial fibrillation per Cardiology -Anemia felt to be 2/2 chemo, eliquis was resumed. Hold for plt <50,000 -S/P 1 unit PRBCs for Hgb 7.1, Hgb 9.7 today -Hold Eliquis for platelets less than 50,000 Macrocytic anemia, thrombocytopenia, neutrophillic leukocytosis -Macrocytic anemia and thrombocytopenia 2/2 chemotherapy. S/P 1 unit PRBCs. Hgb 9.7 today, plt 104,000. Transfuse for hemoglobin less than 8 and/or platelets less than 10,000 and/or bleeding -Neutrophilic leukocytosis is secondary to colony growth stimulating factor given on 06/24/2024. WBC 13.4 today Extensive stage small cell lung cancer -Noted to have partial response to treatment on PET/CT in early June 2024 following 4 cycles of treatment -Received cycle 5 of treatment from 06/19/2024 through 06/21/2024 -Cycle 6 planned for 07/09/2023 through 07/11/2023 with repeat PET/CT Doctor attests: I performed a history and physical examination of this patient, developed impression and plan of care. Discussed with dictator. I agree with dictators note, documented as a scribe.
[2024-06-27] MEDS: METOPROLOL TARTRATE 50 MG TAB PO SCH (20:13)
[2024-06-27] MEDS: ACETAMINOPHEN TAB 325 MG TAB PO PRN (21:06)
[2024-06-27] MEDS: AMIODARONE 450 MG in DEXTROSE 5% IN WATER 250 ML IV SCH (21:07)
--- NOTE | 2024-06-28 03:19 | PN ---
PROGRESS NOTE DATE OF SERVICE: 06/27/2024 SUBJECTIVE: This is a 78-year-old woman, who was admitted with atrial fibrillation, had history of small-cell lung cancer also. The patient is closely monitored. Heart rate is fluctuating at this time. Multiple consultants are following the patient closely. OBJECTIVE: VITAL SIGNS: Pulse is 133, blood pressure 112/50, respirations 18. CHEST: A few scattered rhonchi. ABDOMEN: Soft. NERVOUS SYSTEM: Nonfocal. LABORATORY DATA: WBC 13.4, improving. Rest of the labs are noted. ASSESSMENT: 1. Atrial fibrillation with fast ventricular rate present on admission. 2. 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 3. Elevated WBC possibly secondary to G-CSF stimulation. 4. Anemia. 5. History of coronary artery disease, coronary artery bypass graft. 6. History of coronary artery disease stent. 7. Cardiac valve replacement history. 8. History of anxiety. RECOMMENDATIONS AND DISCUSSION: Recommend to continue current management and continue symptomatic treatment. Continue with beta blockers. Continue with Eliquis. Guarded prognosis because of multiple complex medical issues and we will repeat labs. TSH is normal. Further recommendations to follow. MMODL / IJN: [id number] /
[2024-06-28 07:12] LABS: African American GFR (CKD) >90 (>60 ml/min/1.73 sqM); Anion Gap 5 mmol/L; Blood Urea Nitrogen 16 mg/dL (7-17); Calcium 8.6 mg/dL (8.4-10.2); Carbon Dioxide 29 mmol/L (22-30); Chloride 104 mmol/L (98-107); Glucose 91 mg/dL (74-99); Magnesium 1.9 mg/dL (1.6-2.3); Non-African American GFR(CKD) >90 (>60 ml/min/1.73 sqM); Potassium 3.7 mmol/L (3.5-5.1); Sodium 138 mmol/L (137-145)
[2024-06-28 07:17] LABS: NT-Pro-B-Type Natriuretic Pept 2280 pg/mL
[2024-06-28 07:32] LABS: Basophils # (A) 0.1 k/uL (0-0.2); Basophils % (A) 1 %; Eosinophils # (A) 0.2 k/uL (0-0.7); Eosinophils % (A) 3 %; HCT 30.5 % (34.0-46.0); HGB 9.9 gm/dL (11.4-16.0); Lymphocytes # (A) 1.4 k/uL (1.0-4.8); Lymphocytes % (A) 26 %; MCH 34.2 pg (25.0-35.0); MCHC 32.4 g/dL (31.0-37.0); MCV 105.4 fL (80.0-100.0); Macrocytosis Moderate; Mean Platelet Volume 9.4; Monocytes # (A) 0.1 k/uL (0-1.0); Monocytes % (A) 2 %; Neutrophils # (A) 3.6 k/uL (1.3-7.7); Neutrophils % (A) 66 %; RBC 2.89 m/uL (3.80-5.40); RDW 15.1 % (11.5-15.5); WBC 5.4 k/uL (3.8-10.6)
--- NOTE | 2024-06-28 08:05 | CA ---
Transthoracic Echo Report Name: Steffi Castañeda Age: 78 Gender: F : 1945 Exam Date: 06/27/2024 16:58 Exam Location: [facility] Ht (in): 66 Wt (lb): 120 Ordering Physician: Tru Collado MD ([id number]) Attending/Referring Phys: Wardrobe Stylist Barb Castaneda, MED Procedure CPT: Indications: chf, afib Cardiac Hx: Limited for LVEF and valves. Technical Quality: Good Contrast 1: Total Dose (mL): Contrast 2: Total Dose (mL): MEASUREMENTS (Male / Female) Normal Values 2D ECHO LV Diastolic Diameter PLAX 3.9 cm 4.2 - 5.9 / 3.9 - 5.3 cm LV Systolic Diameter PLAX 3.4 cm IVS Diastolic Thickness 0.9 cm 0.6 - 1.0 / 0.6 - 0.9 cm LVPW Diastolic Thickness 0.8 cm 0.6 - 1.0 / 0.6 - 0.9 cm LV Relative Wall Thickness 0.5 DOPPLER TR Peak Velocity 249.2 cm/s TR Peak Gradient 24.8 mmHg Right Atrial Pressure 10.0 mmHg Pulmonary Artery Systolic Pressu 34.8 mmHg Right Ventricular Systolic Press 34.8 mmHg FINDINGS Left Ventricle Left ventricular ejection fraction is estimated at 45-50 %. Left ventricular cavity size normal. Left ventricular wall thickness normal. No obvious regional wall motion abnormalities. Right Ventricle Normal right ventricular size with reduced function. Mild pulmonary hypertension. Right Atrium Left Atrium Mitral Valve Mitral valve thickened. Mitral annular calcification. Moderate mitral regurgitation. Aortic Valve Trileaflet aortic valve. No aortic valve stenosis or regurgitation. Tricuspid Valve Structurally normal tricuspid valve. Moderate tricuspid regurgitation. Pulmonic Valve Pulmonic valve not well visualized. Pericardium No pericardial effusion. Aorta CONCLUSIONS Mild LV systolic dysfunction with an ejection fraction of 45% Moderate mitral regurgitation Moderate tricuspid regurgitation Previewed by: Dr. Dc Gaitan MD (Electronically Signed) Final Date: 28 June 2024 08:04
[2024-06-28 08:53] LABS: Platelet Count 70 k/uL (150-450)
--- NOTE | 2024-06-28 09:46 | XR ---
EXAMINATION TYPE: XR chest 1V portable DATE OF EXAM: 06/28/2024 8:59 AM COMPARISON: 06/25/2024 CLINICAL INDICATION: Female, 78 years old with shortness of breath, history of congested, , FINDINGS: Heart is upper limits of normal in size. Hyperinflation. Similar interstitial density. Increased patc hy bibasilar opacities especially at the medial right base. Median sternotomy wires. Chronic full-thi ckness rotator cuff tear on the right. IMPRESSION: 1. COPD. Correlate for possible superimposed mild CHF with pulmonary vascular congestion. 2. Interval worsening in patchy bibasilar infiltrates. [facility], , 06/28/2024 9:43 AM
[2024-06-28] MEDS ORDERED: FLUTICASONE NASAL 50MCG/SPRAY 16GM BTL EA NOSTRIL PRN (10:04)
[2024-06-28] MEDS ORDERED: METOPROLOL TARTRATE 25 MG TAB PO SCH (13:15)
[2024-06-28] MEDS: METOPROLOL SUCCINATE (ER) 25 MG TAB.ER.24H PO SCH (13:25)
[2024-06-28] MEDS: DAPAGLIFLOZIN PROPANEDIOL 10 MG TABLET PO SCH (13:25)
[2024-06-28] MEDS: FUROSEMIDE 10 MG/ML 4 ML VIAL IV STA (13:25)
[2024-06-28] MEDS: AMIODARONE 200 MG TAB PO SCH (15:05)
--- NOTE | 2024-06-28 15:17 | P.PN ---
Subjective HISTORY OF PRESENT ILLNESS: HPI: Per Dr. Collado past medical history of CAD status post CABG, aortic valve replacement, paroxysmal atrial fibrillation and lung cancer. She is undergoing chemotherapy for her small cell lung cancer. Patient continues to be in atrial fibrillation with RVR with minimal response to IV Cardizem drip. He denies any chest pain chest pressure. She appears euvolemic 06/28/2024 Patient examined this morning at the bedside. Patient currently denies chest pain or pressure. She reports feeling short of breath and congested at the time of examination. Telemetry reveals sinus mechanism in the 70s. She remains on IV amiodarone. Patient has been refusing her metoprolol as she states that she usually is hypotensive on an outpatient basis and is afraid to be on this medication. Echocardiogram completed revealing ejection fraction 45 to 50%, mild pulmonary hypertension, moderate mitral regurgitation, moderate tricuspid regurgitation PHYSICAL EXAM: VITAL SIGNS: Reviewed. GENERAL: Well-developed in no acute distress. NECK: Supple. No JVD or thyromegaly LUNGS: Respirations even and unlabored. Lungs essentially clear to auscultation bilaterally. HEART: Regular rate and rhythm. S1 and S2 heard. EXTREMITIES: Normal range of motion. No clubbing or cyanosis. Peripheral pulses intact. No lower extremity edema ASSESSMENT: Small cell lung cancer, on chemotherapy Paroxysmal atrial fibrillation with RVR, currently maintaining sinus mechanism History of CAD with previous CABG and surgical aortic valve replacement Mild cardiomyopathy, 45%, ischemic versus nonischemic Anemia, status post RBC transfusion Acute heart failure/volume overload with mildly reduced EF PLAN: Begin oral amiodarone 200 mg 3 times a day once IV infusion is completed Continue anticoagulation with Eliquis Give 1 dose IV Lasix Change metoprolol tartrate to metoprolol succinate and decrease dose to 25 mg daily. Patient is hesitant to take this medication because she states her blood pressure runs low at home however her concerns were discussed with Dr. Collado and she is willing to try Continue telemetry monitoring Further recommendations pending patient course Nurse practitioner note has been reviewed by physician. Signing provider agrees with the documented findings, assessment, and plan of care documented by NUB CARD TENDER as a scribe. Objective - Vital Signs Vital signs: Vital Signs Temp 97.5 F L 06/28/24 08:00 Pulse 77 06/28/24 11:59 Resp 18 06/28/24 11:59 BP 106/69 06/28/24 11:59 Pulse Ox 99 06/28/24 11:59 FiO2 Intake & Output 06/27/24 06/28/24 06/28/24 18:59 06:59 18:59 Intake Total 2700 711.949 Output Total 900 Balance 2700 -188.051 Weight 54.5 kg 51.8 kg Intake: Intake, IV Titration 1500 231.949 Amount Amiodarone 450 mg In 231.949 Dextrose 5% in Water 250 ml @ 0.5 MG/MIN 16.667 mls/hr IV .Q15H [facility] Rx#: [id number] Sodium Chloride 0.9% 1, 1500 000 ml @ 75 mls/hr IV . [id number] [facility] Rx#:[id number] Oral 1200 480 Output: Urine 900 Other: Voiding Method Toilet Toilet Toilet # Voids 2 1 1 - Labs CBC & Chem 7: 06/28/24 06:31 06/28/24 06:31 Labs: Abnormal Lab Results - Last 24 Hours (Table) 06/28/24 Range/Units 06:31 RBC 2.89 L (3.80-5.40) m/uL Hgb 9.9 L (11.4-16.0) gm/dL Hct 30.5 L (34.0-46.0) % MCV 105.4 H (80.0-100.0) fL Plt Count 70 L (150-450) k/uL
[2024-06-28] MEDS: APIXABAN 2.5 MG TABLET PO SCH (20:31)
--- NOTE | 2024-06-29 03:08 | P.PN ---
Subjective Progress Note Date: 06/28/24 This is a pleasant 78-year-old female who was recently admitted with atrial fibrillation with RVR being closely monitored with cardiology following. Patient does have history of small cell lung carcinoma maintained on chemotherapy and immunotherapy. Patient continues to report some shortness of breath and has transition to IV amiodarone and will be transitioning to oral as heart rate is currently rate controlled. Cardiology following making adjustments to medications. Patient would like to go home although is fearful of being discharged too soon and requiring rehospitalization. Encouraged inc rease activity as tolerated and will follow-up with cardiology regarding possible discharge planning in the next 24 to 48 hours Review of systems: Constitutional: No reports of fatigue, fever, or chills Cardiovascular: No reports of chest pain or palpitations Respiratory: No reports of shortness of breath or cough GI: No reports of nausea, no reports of vomiting, no diarrhea : No reports of dysuria or retention Neurovascular: reports of generalized weakness All medications have been reviewed Active Medications Acetaminophen (Acetaminophen Tab 325 Mg Tab) 650 mg PO Q6HR PRN PRN Reason: Mild Pain or Fever > 100.5 Last Admin: 06/28/24 21:03 Dose: 650 mg Amiodarone HCl (Amiodarone 200 Mg Tab) 200 mg PO TID [facility] Last Admin: 06/28/24 20:31 Dose: 200 mg Apixaban (Apixaban 2.5 Mg Tablet) 2.5 mg PO BID [facility]; Protocol Last Admin: 06/28/24 20:31 Dose: 2.5 mg Atorvastatin Calcium (Atorvastatin 40 Mg Tab) 40 mg PO W/SUPPER [facility] Last Admin: 06/28/24 17:12 Dose: 40 mg Clonazepam (Clonazepam 1 Mg Tab) 1 mg PO HS@2100 [facility] Last Admin: 06/28/24 20:31 Dose: 1 mg Dapagliflozin (Dapagliflozin Propanediol 10 Mg Tablet) 10 mg PO DAILY [facility] Last Admin: 06/28/24 13:25 Dose: 10 mg Famotidine (Famotidine 20 Mg Tab) 20 mg PO BID [facility] Last Admin: 06/28/24 20:31 Dose: 20 mg Fluticasone Propionate (Fluticasone Nasal 50mcg/[place] 16gm Btl) 2 spray EA NOSTRIL DAILY PRN PRN Reason: Allergy Symptoms Metoprolol Succinate (Metoprolol Succinate (Er) 25 Mg Tab.Er.24h) 25 mg PO DAILY [facility] Last Admin: 06/28/24 13:25 Dose: 25 mg Naloxone HCl (Naloxone 0.4 Mg/Ml 1 Ml Vial) 0.2 mg IV Q2M PRN PRN Reason: Opioid Reversal Tramadol HCl (Tramadol 50 Mg Tab) 50 mg PO Q6H PRN PRN Reason: Moderate Pain (Scale 4 to 6) PHYSICAL EXAMINATION: GENERAL: The patient is alert and oriented x4, Well developed, well nourished. Thin built, elderly appearing HEENT: Pupils are round and equally reacting to light. EOMI. no scleral icterus. No conjunctival pallor. Normocephalic, atraumatic. No pharyngeal erythema. No thyromegaly. CARDIOVASCULAR: S1 and S2 muffled, currently rate controlled PULMONARY: diminished breath sounds bilaterally with no wheezing or rhonchi noted. ABDOMEN: soft. Nontender on exam. Thin. Non-distended, normoactive bowel sounds. No palpable organomegaly. MUSCULOSKELETAL: No joint swelling or deformity. EXTREMITIES: No cyanosis, clubbing, or pedal edema. NEUROLOGICAL: Gross neurological examination did not reveal any focal deficits. Diffuse weakness SKIN: No rashes. 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 Patient has transitioned from IV amiodarone to oral amiodarone and currently rate controlled. Cardiology adjusting medications recommend monitoring overnight with possible discharge planning if patient remains rate controlled Patient is fearful of being discharged too soon and requiring rehospitalization. Will monitor overnight on continue telemetry monitoring and await cardiology clearance Continue other current medication regimen Wean FiO2 as tolerated Encourage increase activity as tolerated Possible discharge planning in the next 24 to 48 hours Due to multiple complex medical issues, overall prognosis is guarded The impression and plan of care has been dictated by Cici Montoya, nurse practitioner as directed. Dr. Willian MD I have performed a history and examination and MDM of this patient, discussed th e same with the dictator, and agree with the dictator's assessment and plan as written ,documented as a scribe. Based on total visit time, I have performed more than 50% of the visit. Any additional findings or plans will be noted. Objective - Vital Signs Vital signs: Vital Signs Temp 97.6 F 06/28/24 15:28 Pulse 88 06/28/24 15:28 Resp 16 06/28/24 15:28 BP 121/74 06/28/24 15:28 Pulse Ox 98 06/28/24 15:28 FiO2 Intake & Output 06/27/24 06/28/24 06/28/24 18:59 06:59 18:59 Intake Total 2700 951.949 Output Total 1400 Balance 2700 -448.051 Weight 54.5 kg 51.8 kg Intake: Intake, IV Titration 1500 231.949 Amount Amiodarone 450 mg In 231.949 Dextrose 5% in Water 250 ml @ 0.5 MG/MIN 16.667 mls/hr IV .Q15H [facility] Rx#: [id number] Sodium Chloride 0.9% 1, 1500 000 ml @ 75 mls/hr IV . [id number] [facility] Rx#:[id number] Oral 1200 720 Output: Urine 1400 Other: Voiding Method Toilet Toilet Toilet # Voids 2 1 1 - Labs CBC & Chem 7: 06/28/24 06:31 06/28/24 06:31 Labs: Abnormal Lab Results - Last 24 Hours (Table) 06/28/24 Range/Units 06:31 RBC 2.89 L (3.80-5.40) m/uL Hgb 9.9 L (11.4-16.0) gm/dL Hct 30.5 L (34.0-46.0) % MCV 105.4 H (80.0-100.0) fL Plt Count 70 L (150-450) k/uL
--- NOTE | 2024-06-29 07:36 | XR ---
EXAMINATION TYPE: XR chest 1V portable DATE OF EXAM: 06/29/2024 5:06 AM COMPARISON: Chest radiographs from 06/28/2024 CLINICAL INDICATION: Female, 78 years old with history of follow up; shortness of breath TECHNIQUE: XR chest 1V portable Frontal view of the chest. FINDINGS: Lungs/Pleura: Similar interstitial opacities throughout the lungs given differences in technique. The re is no evidence of pleural effusion, focal consolidation, or pneumothorax. Pulmonary vascularity: Unremarkable. Heart/mediastinum: Cardiomediastinal silhouette is unremarkable. Musculoskeletal: No acute osseous pathology. Midline sternotomy wires are noted. IMPRESSION: Similar multifocal interstitial opacities. [facility], , 06/29/2024 7:34 AM
[2024-06-29] MEDS: METOPROLOL SUCCINATE (ER) 25 MG TAB.ER.24H PO SCH (10:10)
[2024-06-29] MEDS: FUROSEMIDE 10 MG/ML 4 ML VIAL IV STA (10:11)
[2024-06-29 11:02] LABS: Basophils # (A) 0.1 k/uL (0-0.2); Basophils % (A) 2 %; Eosinophils # (A) 0.1 k/uL (0-0.7); Eosinophils % (A) 3 %; HCT 28.8 % (34.0-46.0); HGB 10.6 gm/dL (11.4-16.0); Lymphocytes # (A) 1.6 k/uL (1.0-4.8); Lymphocytes % (A) 63 %; MCH 38.2 pg (25.0-35.0); MCHC 36.8 g/dL (31.0-37.0); MCV 103.8 fL (80.0-100.0); Macrocytosis Slight; Mean Platelet Volume 10.9; Monocytes # (A) 0.1 k/uL (0-1.0); Monocytes % (A) 4 %; Neutrophils # (A) 0.6 k/uL (1.3-7.7); Neutrophils % (A) 24 %; RBC 2.78 m/uL (3.80-5.40); RDW 14.8 % (11.5-15.5); WBC 2.6 k/uL (3.8-10.6)
[2024-06-29 11:03] LABS: Platelet Count 54 k/uL (150-450)
[2024-06-29 11:11] LABS: African American GFR (CKD) >90 (>60 ml/min/1.73 sqM); Anion Gap 8 mmol/L; Blood Urea Nitrogen 18 mg/dL (7-17); Calcium 8.9 mg/dL (8.4-10.2); Carbon Dioxide 30 mmol/L (22-30); Chloride 101 mmol/L (98-107); Glucose 99 mg/dL (74-99); Magnesium 1.7 mg/dL (1.6-2.3); Non-African American GFR(CKD) 86 (>60 ml/min/1.73 sqM); Potassium 3.4 mmol/L (3.5-5.1); Sodium 139 mmol/L (137-145)
--- NOTE | 2024-06-29 13:05 | P.PN ---
Subjective HISTORY OF PRESENT ILLNESS: HPI: Per Dr. Collado past medical history of CAD status post CABG, aortic valve replacement, paroxysmal atrial fibrillation and lung cancer. She is undergoing chemotherapy for her small cell lung cancer. Patient continues to be in atrial fibrillation with RVR with minimal response to IV Cardizem drip. He denies any chest pain chest pressure. She appears euvolemic 06/28/2024 Patient examined this morning at the bedside. Patient currently denies chest pain or pressure. She reports feeling short of breath and congested at the time of examination. Telemetry reveals sinus mechanism in the 70s. She remains on IV amiodarone. Patient has been refusing her metoprolol as she states that she usually is hypotensive on an outpatient basis and is afraid to be on this medication. Echocardiogram completed revealing ejection fraction 45 to 50%, mild pulmonary hypertension, moderate mitral regurgitation, moderate tricuspid regurgitation 06/29/2024 Patient examined this morning at the bedside. Patient currently denies chest pain or pressure. She reports continued shortness of breath although improved from yesterday. She did receive a one-time dose of IV Lasix yesterday with improvement. Patient does report significant amount of urination yesterday. She is maintaining sinus mechanism this morning. Patient did take her metoprolol succinate yesterday and tolerated it well. Blood pressure remained stable. Chest x-ray this morning reveals similar multifocal interstitial opacities. PHYSICAL EXAM: VITAL SIGNS: Reviewed. GENERAL: Well-developed in no acute distress. NECK: Supple. No JVD or thyromegaly LUNGS: Respirations even and unlabored. Lungs with bibasilar crackles HEART: Regular rate and rhythm. S1 and S2 heard. EXTREMITIES: Normal range of motion. No clubbing or cyanosis. Peripheral pulses intact. No lower extremity edema ASSESSMENT: Small cell lung cancer, on chemotherapy Paroxysmal atrial fibrillation with RVR, currently maintaining sinus mechanism History of CAD with previous CABG and surgical aortic valve replacement Mild cardiomyopathy, 45%, ischemic versus nonischemic Anemia, status post RBC transfusion Acute heart failure/volume overload with mildly reduced EF PLAN: Continue oral amiodarone: Taper at discharge includes 200 mg 3 times daily for 1 week, then 200 mg twice daily for 1 week, then 200 mg daily. Discontinue oral amiodarone after 1 month. Continue anticoagulation with Eliquis Give 1 dose IV Lasix 40 mg Continue telemetry monitoring Patient is currently stable from a cardiac perspective Patient to follow up post discharge in the office Further recommendations pending patient course Nurse practitioner note has been reviewed by physician. Signing provider agrees with the documented findings, assessment, and plan of care documented by ALLOPATHIC DOCTOR as a scribe. Objective - Vital Signs Vital signs: Vital Signs Temp 98.5 F 06/29/24 04:00 Pulse 77 06/29/24 08:40 Resp 18 06/29/24 08:40 BP 119/60 06/29/24 08:40 Pulse Ox 98 06/29/24 08:40 FiO2 Intake & Output 06/28/24 06/29/24 06/29/24 18:59 06:59 18:59 Intake Total 951.949 Output Total 2200 600 Balance -1248.051 -600 Weight 55.7 kg Intake: Intake, IV Titration 231.949 Amount Amiodarone 450 mg In 231.949 Dextrose 5% in Water 250 ml @ 0.5 MG/MIN 16.667 mls/hr IV .Q15H [facility] Rx#: [id number] Oral 720 Output: Urine 2200 600 Other: Voiding Method Toilet Toilet Toilet # Voids 1 2 - Labs CBC & Chem 7: 06/29/24 08:39 06/29/24 08:39 Labs: Abnormal Lab Results - Last 24 Hours (Table) 06/29/24 06/29/24 Range/Units 08:39 08:39 WBC 2.6 L (3.8-10.6) k/uL RBC 2.78 L (3.80-5.40) m/uL Hgb 10.6 L (11.4-16.0) gm/dL Hct 28.8 L (34.0-46.0) % MCV 103.8 H (80.0-100.0) fL MCH 38.2 H (25.0-35.0) pg Plt Count 54 L (150-450) k/uL Neutrophils # 0.6 L (1.3-7.7) k/uL Potassium 3.4 L (3.5-5.1) mmol/L BUN 18 H (7-17) mg/dL
--- NOTE | 2024-06-29 14:56 | P.PN ---
Subjective Progress Note Date: 06/29/24 Principal diagnosis: Extensive stage small cell lung cancer -Afebrile, no acute events overnight -Remains rate and rhythm controlled and notes mild generalized fatigue with no dyspnea, chest pain, or palpitations Objective - Vital Signs Vital signs: Vital Signs Temp 98.5 F 06/29/24 04:00 Pulse 77 06/29/24 08:40 Resp 18 06/29/24 08:40 BP 119/60 06/29/24 08:40 Pulse Ox 98 06/29/24 08:40 FiO2 Intake & Output 06/28/24 06/29/24 06/29/24 18:59 06:59 18:59 Intake Total 951.949 Output Total 2200 600 1400 Balance -1248.051 -600 -1400 Weight 55.7 kg Intake: Intake, IV Titration 231.949 Amount Amiodarone 450 mg In 231.949 Dextrose 5% in Water 250 ml @ 0.5 MG/MIN 16.667 mls/hr IV .Q15H [facility] Rx#: [id number] Oral 720 Output: Urine 2200 600 1400 Other: Voiding Method Toilet Toilet Toilet # Voids 1 2 - Constitutional General appearance: Present: cooperative, no acute distress - EENT Eyes: Present: EOMI - Respiratory Respiratory: bilateral: other (Decreased breath sounds at the bases bilaterally) - Cardiovascular Rhythm: regular - Gastrointestinal General gastrointestinal: Present: soft. Absent: distended - Integumentary Integumentary Comment(s): Decreased paleness compared to admission - Neurologic Neurologic: Present: CNII-XII intact. Absent: focal deficits - Psychiatric Psychiatric: Present: A&O x's 3, appropriate affect - Labs CBC & Chem 7: 06/29/24 08:39 06/29/24 08:39 Labs: Abnormal Lab Results - Last 24 Hours (Table) 06/29/24 06/29/24 Range/Units 08:39 08:39 WBC 2.6 L (3.8-10.6) k/uL RBC 2.78 L (3.80-5.40) m/uL Hgb 10.6 L (11.4-16.0) gm/dL Hct 28.8 L (34.0-46.0) % MCV 103.8 H (80.0-100.0) fL MCH 38.2 H (25.0-35.0) pg Plt Count 54 L (150-450) k/uL Neutrophils # 0.6 L (1.3-7.7) k/uL Potassium 3.4 L (3.5-5.1) mmol/L BUN 18 H (7-17) mg/dL Assessment and Plan (1) Atrial fibrillation with RVR Current Visit: Yes Status: Acute Priority: High Code(s): I48.91 - UNSPECIFIED ATRIAL FIBRILLATION SNOMED Code(s): 151844533448840 (2) Extensive stage primary small cell carcinoma of lung Current Visit: Yes Status: Acute Priority: High Code(s): C34.90 - MALIGNANT NEOPLASM OF UNSP PART OF UNSP BRONCHUS OR LUNG SNOMED Code(s): 456807764513789 (3) Anemia associated with chemotherapy Current Visit: Yes Status: Acute Priority: Medium Code(s): D64.81 - ANEMIA DUE TO ANTINEOPLASTIC CHEMOTHERAPY; T45.1X5A - ADVERSE EFFECT OF ANTINEOPLASTIC AND IMMUNOSUP DRUGS, INIT SNOMED Code(s): 006457416098732 (4) Chemotherapy-induced thrombocytopenia Current Visit: Yes Status: Acute Priority: Medium Code(s): D69.59 - OTHER SECONDARY THROMBOCYTOPENIA; T45.1X5A - ADVERSE EFFECT OF ANTINEOPLASTIC AND IMMUNOSUP DRUGS, INIT SNOMED Code(s): 762707316 (5) Neutrophilic leukocytosis Current Visit: Yes Status: Acute Code(s): D72.828 - OTHER ELEVATED WHITE BLOOD CELL COUNT SNOMED Code(s): 342074779 Plan: #Atrial fibrillation with RVR -Likely due to anemia secondary to chemotherapy. Carboplatin and etoposide are not known to be cardiotoxic -Initially started on diltiazem drip and was transitioned to amiodarone per cardiology -She was started on Eliquis for anticoagulation with progressive thrombocytopenia secondary to chemotherapy with platelets 54,000 -We did discuss holding Eliquis due to progressive thrombocytopenia from chemotherapy, which she was in favor with -Eliquis discontinued -Remainder of management per cardiology and primary teams, appreciate their assistance #Macrocytic anemia, thrombocytopenia, neutrophillic leukocytosis -Macrocytic anemia and thrombocytopenia are secondary to chemotherapy -Neutrophilic leukocytosis on admission was secondary to colony growth stimulating factor given on 06/24/2024 -Progressive improvement in hemoglobin after receiving 1 unit of packed red blood cells on 06/26/2024 with hemoglobin 10.6 today -Continue to monitor CBC daily -Transfuse for hemoglobin less than 8 and/or platelets less than 10,000 and/or bleeding #Extensive stage small cell lung cancer -Noted to have partial response to treatment on PET/CT in early June 2024 following 4 cycles of treatment -Received cycle 5 of treatment from 06/19/2024 through 06/21/2024 -Cycle 6 planned for 07/09/2023 through 07/11/2023 with repeat PET/CT -CBC to be arranged in our clinic next week Micaela Cao MD
[2024-06-30 04:00] VITALS: TEMP 97.9
--- NOTE | 2024-06-30 07:27 | P.PN ---
Subjective Progress Note Date: 06/29/24 This is a pleasant 78-year-old female who was recently admitted with atrial fibrillation with RVR being closely monitored with cardiology following. Patient does have history of small cell lung carcinoma maintained on chemotherapy and immunotherapy. Patient continues to report some shortness of breath and has transition to IV amiodarone and will be transitioning to oral as heart rate is currently rate controlled. Cardiology following making adjustments to medications. Patient would like to go home although is fearful of being discharged too soon and requiring rehospitalization. Encouraged inc rease activity as tolerated and will follow-up with cardiology regarding possible discharge planning in the next 24 to 48 hours 06/29/2024 Patient is seen in follow-up today with cardiology following and has transition the patient to oral amiodarone and tolerating well. Other medications adjusted and recommending outpatient follow-up. Patient is maintained on Eliquis and will continue on discharge. Hemoglobin is stable with no active bleeding noted. Monitor platelets closely. Oncology following as well and will follow-up in July for discussion of next cycle of treatment. Patient did receive a dose of Lasix yesterday and well today and recommend to encourage increase activity as tolerated. Plans for discharge in 24 hours. Review of systems: Constitutional: No reports of fatigue, fever, or chills Cardiovascular: No reports of chest pain or palpitations Respiratory: No reports of worsening shortness of breath or cough GI: No reports of nausea, no reports of vomiting, no diarrhea : No reports of dysuria or retention Neurovascular: reports of generalized weakness All medications have been reviewed PHYSICAL EXAMINATION: GENERAL: The patient is alert and oriented x4, Well developed, well nourished. Thin built, elderly appearing HEENT: Pupils are round and equally reacting to light. EOMI. no scleral icterus. No conjunctival pallor. Normocephalic, atraumatic. No pharyngeal erythema. No thyromegaly. CARDIOVASCULAR: S1 and S2 muffled, currently rate controlled PULMONARY: diminished breath sounds bilaterally with no wheezing or rhonchi noted. ABDOMEN: soft. Nontender on exam. Thin. Non-distended, normoactive bowel sounds. No palpable organomegaly. MUSCULOSKELETAL: No joint swelling or deformity. EXTREMITIES: No cyanosis, clubbing, or pedal edema. NEUROLOGICAL: Gross neurological examination did not reveal any focal deficits. Diffuse weakness SKIN: No rashes. Assessment: Atrial fibrillation with fast ventricular rate, present on admission Small cell lung cancer with mets to the liver on chemotherapy and immunotherapy Acute hypoxic respiratory failure possibly secondary to atrial fibrillation, improving, currently on room air Elevated white blood count, likely secondary to G CSF stimulation History of anemia History of coronary artery disease with coronary artery bypass grafting Cardiac valve replacement history History of anxiety GI prophylaxis DVT prophylaxis Full code Plan: Recommend to continue with current medications and management with cardiology following. Patient has transitioned from IV amiodarone to oral amiodarone and currently rate controlled. Cardiology adjusting medications recommend monitoring overnight with possible discharge planning if patient remains rate controlled. Patient will continue and Amio taper on discharge per cardiology with close outpatient follow-up. Patient is fearful of being discharged too soon and requiring rehospitalization. Will monitor overnight on continue telemetry monitoring and plan for discharge in a.m. Continue other current medication regimen Wean FiO2 as tolerated Encourage increase activity as tolerated Probable discharge planning in the next 24 hours Due to multiple complex medical issues, overall prognosis is guarded The impression and plan of care has been dictated as a scribe by Cici Montoya, nurse practitioner as directed. Dr. Willian MD I have performed a history and examination and MDM of this patient, discussed the same with the dictator, and agree with the dictator's assessment and plan as written ,documented as a scribe. Based on total visit time, I have performed more than 50% of the visit. Any additional findings or plans will be noted. Objective - Vital Signs Vital signs: Vital Signs Temp 98.5 F 06/29/24 04:00 Pulse 68 06/29/24 04:00 Resp 18 06/29/24 04:00 BP 98/55 06/29/24 04:00 Pulse Ox 95 06/29/24 04:00 FiO2 Intake & Output 06/28/24 06/29/24 06/29/24 18:59 06:59 18:59 Intake Total 951.949 Output Total 2200 600 Balance -1248.051 -600 Weight 55.7 kg Intake: Intake, IV Titration 231.949 Amount Amiodarone 450 mg In 231.949 Dextrose 5% in Water 250 ml @ 0.5 MG/MIN 16.667 mls/hr IV .Q15H [facility] Rx#: [id number] Oral 720 Output: Urine 2200 600 Other: Voiding Method Toilet Toilet # Voids 1 2 - Labs CBC & Chem 7: 06/29/24 08:39 06/29/24 08:39 Labs: Abnormal Lab Results - Last 24 Hours (Table) 06/28/24 Range/Units 06:31 Plt Count 70 L (150-450) k/uL
[2024-06-30 11:35] LABS: HCT 29.2 % (34.0-46.0); HGB 9.7 gm/dL (11.4-16.0); MCH 34.2 pg (25.0-35.0); MCHC 33.2 g/dL (31.0-37.0); MCV 103.1 fL (80.0-100.0); Macrocytosis Slight; Mean Platelet Volume 12.6; RBC 2.84 m/uL (3.80-5.40); RDW 14.5 % (11.5-15.5); WBC 2.6 k/uL (3.8-10.6)
[2024-06-30 11:42] LABS: African American GFR (CKD) >90 (>60 ml/min/1.73 sqM); Anion Gap 8 mmol/L; Blood Urea Nitrogen 22 mg/dL (7-17); Calcium 9.4 mg/dL (8.4-10.2); Carbon Dioxide 32 mmol/L (22-30); Chloride 98 mmol/L (98-107); Glucose 90 mg/dL (74-99); Non-African American GFR(CKD) 87 (>60 ml/min/1.73 sqM); Potassium 3.7 mmol/L (3.5-5.1); Sodium 138 mmol/L (137-145)
[2024-06-30 11:53] LABS: Platelet Count 35 k/uL (150-450)
[2024-06-30 12:13] LABS: Basophils # (M) 0.05 k/uL (0-0.2); Eosinophils # (M) 0.13 k/uL (0-0.7); Lymphocytes # (M) 1.74 k/uL (1.0-4.8); Monocytes # (M) 0.05 k/uL (0-1.0); Neutrophils # (M) 0.62 k/uL (1.3-7.7); Neutrophils % (M) 24 %; Nucleated Red Blood Cells 0 /100 WBC (0-0); Total Cells Counted 100
--- NOTE | 2024-06-30 13:34 | P.PN ---
Subjective HISTORY OF PRESENT ILLNESS: HPI: Per Dr. Collado past medical history of CAD status post CABG, aortic valve replacement, paroxysmal atrial fibrillation and lung cancer. She is undergoing chemotherapy for her small cell lung cancer. Patient continues to be in atrial fibrillation with RVR with minimal response to IV Cardizem drip. He denies any chest pain chest pressure. She appears euvolemic 06/28/2024 Patient examined this morning at the bedside. Patient currently denies chest pain or pressure. She reports feeling short of breath and congested at the time of examination. Telemetry reveals sinus mechanism in the 70s. She remains on IV amiodarone. Patient has been refusing her metoprolol as she states that she usually is hypotensive on an outpatient basis and is afraid to be on this medication. Echocardiogram completed revealing ejection fraction 45 to 50%, mild pulmonary hypertension, moderate mitral regurgitation, moderate tricuspid regurgitation 06/29/2024 Patient examined this morning at the bedside. Patient currently denies chest pain or pressure. She reports continued shortness of breath although improved from yesterday. She did receive a one-time dose of IV Lasix yesterday with improvement. Patient does report significant amount of urination yesterday. She is maintaining sinus mechanism this morning. Patient did take her metoprolol succinate yesterday and tolerated it well. Blood pressure remained stable. Chest x-ray this morning reveals similar multifocal interstitial opacities. 06/30/2024 Patient examined this morning the bedside. Patient currently denies chest pain or pressure. She denies shortness of breath. She remains in sinus mechanism. Eliquis was discontinued by oncology yesterday secondary to worsening platelet count. PHYSICAL EXAM: VITAL SIGNS: Reviewed. GENERAL: Well-developed in no acute distress. NECK: Supple. No JVD or thyromegaly LUNGS: Respirations even and unlabored. Lungs with bibasilar crackles HEART: Regular rate and rhythm. S1 and S2 heard. EXTREMITIES: Normal range of motion. No clubbing or cyanosis. Peripheral pulses intact. No lower extremity edema ASSESSMENT: Small cell lung cancer, on chemotherapy Paroxysmal atrial fibrillation with RVR, currently maintaining sinus mechanism History of CAD with previous CABG and surgical aortic valve replacement Mild cardiomyopathy, 45%, ischemic versus nonischemic Anemia, status post RBC transfusion Acute heart failure/volume overload with mildly reduced EF PLAN: Continue oral amiodarone: Taper at discharge includes 200 mg 3 times daily for 1 week, then 200 mg twice daily for 1 week, then 200 mg daily. Discontinue oral amiodarone after 1 month. Eliquis was discontinued by oncology yesterday secondary to worsening platelet count. Continue telemetry monitoring Patient is currently stable from a cardiac perspective Patient to follow up post discharge in the office Further recommendations pending patient course Nurse practitioner note has been reviewed by physician. Signing provider agrees with the documented findings, assessment, and plan of care documented by [employer]ITIONS CONSULTANT as a scribe. Objective - Vital Signs Vital signs: Vital Signs Temp 97.9 F 06/30/24 03:59 Pulse 71 06/30/24 08:20 Resp 18 06/30/24 08:20 BP 113/53 06/30/24 08:20 Pulse Ox 97 06/30/24 08:20 FiO2 Intake & Output 06/29/24 06/30/24 06/30/24 18:59 06:59 18:59 Intake Total 240 240 Output Total 1800 Balance -1800 240 240 Weight 55.6 kg Intake: Oral 240 240 Output: Urine 1800 Other: Voiding Method Toilet Toilet Toilet # Voids 2 - Labs CBC & Chem 7: 06/30/24 09:17 06/30/24 09:17 Labs: Abnormal Lab Results - Last 24 Hours (Table) 06/30/24 06/30/24 Range/Units 09:17 09:17 WBC 2.6 L (3.8-10.6) k/uL RBC 2.84 L (3.80-5.40) m/uL Hgb 9.7 L (11.4-16.0) gm/dL Hct 29.2 L (34.0-46.0) % MCV 103.1 H (80.0-100.0) fL Plt Count 35 L (150-450) k/uL Neutrophils # (Manual) 0.62 L (1.3-7.7) k/uL Carbon Dioxide 32 H (22-30) mmol/L BUN 22 H (7-17) mg/dL
[2024-06-30 17:01] VITALS: BP 110/64; PULSE 70; RESP 16
--- NOTE | 2024-07-02 12:34 | P.DS ---
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 Patient will follow-up with her primary care provider in the outpatient setting upon discharge. Patient is to continue with close outpatient follow-up with cardiology as well as oncology as scheduled. Total time taken is greater than 35 minutes. Hospital course This is a 78-year-old female who was recently admitted with atrial fibrillation with RVR being closely monitored with cardiology and oncology following. Patient with significant history of small cell lung carcinoma with mets to the liver currently on immunotherapy and chemotherapy. Patient was started on Eliquis although significant thrombocytopenia noted and oncology has held Eliquis. Discussed with cardiology regarding possible Watchman device although patient is not a candidate. Patient has been cleared by consultations for discharge and will have close outpatient follow-up with her home health aide as well as oncology as scheduled. Please refer to other consultation notes for further HPI. Patient will continue on amiodarone taper on discharge. Currently no reports of chest pain, shortness of breath, or palpitations. Patient is afebrile. No reports of nausea or vomiting and patient is tolerating diet. Patient will be discharged home today. Guarded prognosis and high risk for readmissions given significant comorbidities Physical exam: Gen: This is a 78-year-old female who is awake, alert and oriented x 3, well- developed, thin build, elderly appearing HEENT: Head is atraumatic, normocephalic. Pupils equal, round. Sclerae is anicteric. NECK: Supple. No JVD. No lymphadenopathy. No thyromegaly. LUNGS: Diminished breath sounds bilaterally otherwise clear to auscultation. No wheezes or rhonchi. No intercostal retractions. HEART: S1, S2 are muffled ABDOMEN: Soft. Thin. Bowel sounds are present. No masses. No tenderness. EXTREMITIES: No pedal edema. No calf tenderness. NEUROLOGICAL: Patient is awake, alert and oriented x3. Cranial nerves 2 through 12 are grossly intact. Please refer to medication reconciliation sheet for a list of medications. The impression and plan of care has been dictated by Cici Montoya, Nurse Practitioner as directed. Dr. Willian MD I have performed a history and examination and MDM of this patient, discussed the same with the dictator, and agree with the dictator's assessment and plan as written ,documented as a scribe. Based on total visit time, I have performed more than 50% of the visit. Patient Condition at Discharge: Good Plan - Discharge Summary Discharge Rx Participant: Yes New Discharge Prescriptions: New Famotidine [Pepcid] 20 mg PO DAILY #30 tab Metoprolol Succinate (ER) [Toprol XL] 25 mg PO DAILY #30 tab Amiodarone [Cordarone] 200 mg PO TID 30 Days #49 tab Dapagliflozin Propanediol [Farxiga] 10 mg PO DAILY #30 tab Acetaminophen Tab [Tylenol] 650 mg PO Q6HR PRN tab PRN Reason: Mild Pain Or Fever > 100.5 Continue clonazePAM [KlonoPIN] 1 mg PO HS@2100 Atorvastatin [Lipitor] 40 mg PO W/SUPPER Discharge Medication List Atorvastatin [Lipitor] 40 mg PO W/SUPPER 04/03/24 [History] clonazePAM [KlonoPIN] 1 mg PO HS@2100 04/03/24 [History] Acetaminophen Tab [Tylenol] 650 mg PO Q6HR PRN tab 06/30/24 [Rx] Amiodarone [Cordarone] 200 mg PO TID 30 Days #49 tab 06/30/24 [Rx] Dapagliflozin Propanediol [Farxiga] 10 mg PO DAILY #30 tab 06/30/24 [Rx] Famotidine [Pepcid] 20 mg PO DAILY #30 tab 06/30/24 [Rx] Metoprolol Succinate (ER) [Toprol XL] 25 mg PO DAILY #30 tab 06/30/24 [Rx] Follow up Appointment(s)/Referral(s): Tru Collado MD [Medical Doctor] - 1 Week Nonstaff,Physician [Primary Care Provider] - 1-2 days Miacela Cao MD [STAFF PHYSICIAN] - 1 Week Ambulatory/Diagnostic Orders: Complete Blood Count w/diff [LAB.AMB] Time Frame: 3 Days, Location: None Selected Activity/Diet/Wound Care/Special Instructions: Activity limited until follow-up Follow-up with primary care provider on discharge Follow-up with cardiology outpatient Continue amiodarone taper with 200 mg 3 times daily for 1 week, then 200 mg twice daily for 1 week, then 200 mg daily thereafter Follow-up with oncology outpatient Follow-up with repeat labs in the next few days to monitor platelet count Follow-up as scheduled with oncology regarding next treatment Discharge Disposition: HOME SELF-CARE
== END 2024-06-30 16:00 | disposition home or self-care (01) | DRG 308 ==
LOC: EC 13:24 → 3SCARD 15:33
PROVIDERS: ADMIT Hospitalist; ATTEND Hospitalist
PROC: 30233N1 Transfusion of Nonautologous Red Blood Cells into Peripheral Vein, Percutaneous Approach (ICD-10-PCS; principal; 2024-06-26)
DX: I48.0 Paroxysmal atrial fibrillation (principal); I50.21 Acute systolic (congestive) heart failure; J96.01 Acute respiratory failure with hypoxia; C78.7 Secondary malignant neoplasm of liver and intrahepatic bile duct; C34.90 Malignant neoplasm of unspecified part of unspecified bronchus or lung; I27.20 Pulmonary hypertension, unspecified; Z95.3 Presence of xenogenic heart valve; D69.59 Other secondary thrombocytopenia; Z95.1 Presence of aortocoronary bypass graft; I42.9 Cardiomyopathy, unspecified; I08.1 Rheumatic disorders of both mitral and tricuspid valves; D53.9 Nutritional anemia, unspecified; D64.81 Anemia due to antineoplastic chemotherapy; F41.9 Anxiety disorder, unspecified; T45.1X5A Adverse effect of antineoplastic and immunosuppressive drugs, initial encounter; D72.828 Other elevated white blood cell count; I25.10 Atherosclerotic heart disease of native coronary artery without angina pectoris; T44.7X6A Underdosing of beta-adrenoreceptor antagonists, initial encounter; Z91.128 Patient's intentional underdosing of medication regimen for other reason; Z95.5 Presence of coronary angioplasty implant and graft; Z87.891 Personal history of nicotine dependence
CPT/HCPCS: 36415; 71045; 71275; 80048; 80053; 81001; 83036; 83735; 83880; 84443; 84484; 85025; 85610; 85730; 86850; 86900; 86901; 86920; 93005; 93308; 96361; 96365; 96366; 99291

== ENCOUNTER 2024-07-15 08:31 | Inpatient (IN) | payer MEDICARE ==
--- NOTE | 2024-07-15 08:34 | ED ---
General Adult HPI - General Stated complaint: Irreg. heart rate Time Seen by Provider: 07/15/24 08:32 Source: patient, EMS, RN notes reviewed, old records reviewed Mode of arrival: EMS Limitations: no limitations - History of Present Illness Initial comments: 78-year-old female presents emergency department with chief complaint of A-fib, palpitations. Patient states she started having issues night. Patient feels like her heart is racing she does have mild shortness of breath. Patient states she is weaning down on her amiodarone she states that she was on metoprolol also but secondary to hypotension her medications have been lowered. She is not any blood thinners currently because she has had bleeding issues. She has had leg pain leg swelling. - Related Data Home Medications Medication Instructions Recorded Confirmed Atorvastatin [Lipitor] 40 mg PO W/SUPPER 04/03/24 07/15/24 clonazePAM [KlonoPIN] 1 mg PO HS@2100 04/03/24 07/15/24 Amiodarone [Cordarone] See Taper PO TID 07/15/24 07/15/24 Ascorbic Acid [Vitamin C] 500 mg PO DAILY@1500 07/15/24 07/15/24 Cholecalciferol [Vitamin D3 (25 25 mcg PO DAILY@1500 07/15/24 07/15/24 Mcg = 1000 Iu)] Famotidine [Pepcid] 20 mg PO DAILY@1500 07/15/24 07/15/24 Allergies Allergy/AdvReac Type Severity Reaction Status Date / Time No Known Allergies Allergy Verified 07/15/24 10:45 Review of Systems ROS Statement: Those systems with pertinent positive or pertinent negative responses have been documented in the HPI. ROS Other: All systems not noted in ROS Statement are negative. Past Medical History Past Medical History: Atrial Fibrillation, Cancer Additional Past Medical History / Comment(s): afib hx-stopped taking Eliquis. 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 History of Any Multi-Drug Resistant Organisms: None Reported Past Surgical History: Cardiac Valve Replacement, Coronary Bypass/CABG, Heart Catheterization With Stent Additional Past Surgical History / Comment(s): Stents removed when bypass surgery was done at [facility] Past Anesthesia/Blood Transfusion Reactions: No Reported Reaction Date of Last Stent Placement:: 1999 Past Psychological History: Anxiety Additional Psychological History / Comment(s): states on klonopin for past 20 years Smoking Status: Former smoker Past Alcohol Use History: None Reported Past Drug Use History: None Reported General Exam Limitations: no limitations General appearance: alert, in no apparent distress Head exam: Present: atraumatic, normocephalic, normal inspection Eye exam: Present: normal appearance, PERRL, EOMI. Absent: scleral icterus, conjunctival injection, periorbital swelling ENT exam: Present: normal exam, normal oropharynx, mucous membranes moist Neck exam: Present: normal inspection, full ROM. Absent: tenderness, meningismus, lymphadenopathy Respiratory exam: Present: normal lung sounds bilaterally. Absent: respiratory distress, wheezes, rales, rhonchi, stridor Cardiovascular Exam: Present: tachycardia, irregular rhythm, normal heart sounds. Absent: regular rate, normal rhythm, systolic murmur, diastolic murmur, rubs, gallop, clicks Course Vital Signs 07/15/24 07/15/24 07/15/24 08:33 09:03 09:10 Temperature 97.7 F Pulse Rate 139 H 131 H 130 H Pulse Rate [ Senior Electrical Design Engineer ] Respiratory 18 18 16 Rate Blood Pressure 122/74 100/62 100/62 Blood Pressure [Right Arm Supine] O2 Sat by Pulse 98 98 95 Oximetry 07/15/24 07/15/24 07/15/24 09:13 09:20 09:30 Temperature Pulse Rate 140 H 120 H Pulse Rate [ 136 H Senior Electrical Design Engineer ] Respiratory 20 18 Rate Blood Pressure 113/61 Blood Pressure [Right Arm Supine] O2 Sat by Pulse 93 L 90 L Oximetry 07/15/24 07/15/24 07/15/24 09:40 09:50 10:00 Temperature Pulse Rate 131 H 123 H 121 H Pulse Rate [ Senior Electrical Design Engineer ] Respiratory 16 19 18 Rate Blood Pressure 100/58 98/61 102/69 Blood Pressure [Right Arm Supine] O2 Sat by Pulse 93 L 92 L 92 L Oximetry 07/15/24 07/15/24 07/15/24 10:10 10:20 10:30 Temperature Pulse Rate 138 H 126 H 140 H Pulse Rate [ Senior Electrical Design Engineer ] Respiratory 16 18 20 Rate Blood Pressure 109/63 107/89 113/58 Blood Pressure [Right Arm Supine] O2 Sat by Pulse 91 L 90 L 94 L Oximetry 07/15/24 07/15/24 07/15/24 10:40 10:50 11:00 Temperature Pulse Rate 133 H 123 H 111 H Pulse Rate [ Senior Electrical Design Engineer ] Respiratory 18 23 17 Rate Blood Pressure 128/71 97/75 107/63 Blood Pressure [Right Arm Supine] O2 Sat by Pulse 91 L 94 L Oximetry 07/15/24 07/15/24 07/15/24 14:44 16:00 16:10 Temperature 98.0 F Pulse Rate 96 87 Pulse Rate [ 102 H Senior Electrical Design Engineer ] Respiratory 18 18 18 Rate Blood Pressure 99/64 97/63 Blood Pressure 89/63 [Right Arm Supine] O2 Sat by Pulse 96 95 96 Oximetry 07/15/24 07/16/24 07/16/24 20:00 00:00 04:00 Temperature 97.7 F 97.7 F 97.6 F Pulse Rate Pulse Rate [ 93 71 97 Senior Electrical Design Engineer ] Respiratory 16 14 16 Rate Blood Pressure Blood Pressure 97/62 92/69 92/68 [Right Arm Supine] O2 Sat by Pulse 95 95 95 Oximetry EKG Findings - EKG Comments: EKG Findings:: EKG performed at 8: 38 A-fib with RVR rate of 132 QRS 138 QT/QTc 347/425 - EKG Results: EKG: interpreted by SARAH Medical Decision Making - Medical Decision Making Was pt. sent in by a medical professional or institution (, PA, ADVERTISING SALES CONSULTANT, urgent care, hospital, or [place] health care facility...) When possible be specific @ -No Did you speak to anyone other than the patient for history (EMS, parent, family, police, friend...)? What history was obtained from this source @ -No Did you review nursing and triage notes (agree or disagree)? Why? @ -I reviewed and agree with nursing and triage notes Were old charts reviewed (outside hosp., previous admission, EMS record, old EKG, old radiological studies, urgent care reports/EKG's, [place] health care facility records)? Report findings @ -No old charts were reviewed Differential Diagnosis (chest pain, altered mental status, abdominal pain women, abdominal pain men, vaginal bleeding, weakness, fever, dyspnea, syncope, headache, dizziness, GI bleed, back pain, seizure, CVA, palpatations, mental health, musculoskeletal)? @ -Differential Palpitations Ventricular arrhythmias, atrial arrhythmias, myocardial infarction, anemia, thyrotoxicosis, electrolyte imbalance, hypokalemia, pulmonary embolism, pulmonary disease, drugs, alcohol, anxiety, stress.... This is not meant to be an all-inclusive list. EKG interpreted by me (3pts min.). @ -As above X-rays interpreted by me (1pt min.). @ -Chest x-ray shows no acute cardiopulmonary process CT interpreted by me (1pt min.). @ -None done U/S interpreted by me (1pt. min.). @ -None done What testing was considered but not performed or refused? (CT, X-rays, U/S, labs)? Why? @ -None What meds were considered but not given or refused? Why? @ -None Did you discuss the management of the patient with other professionals (professionals i.e. DrStephanie, PA, ADVERTISING SALES CONSULTANT, lab, RT, psych nurse, emergency worker, brass burnisher, teacher, ship's officer, housing case manager)? Give summary @ -EMH for admission Was smoking cessation discussed for >3mins.? @ -No Was critical care preformed (if so, how long)? @ -35 minutes Were there social determinants of health that impacted care today? How? (Homelessness, low income, unemployed, alcoholism, drug addiction, transportation, low edu. Level, literacy, decrease access to med. care, nursing home, rehab)? @ -No Was there de-escalation of care discussed even if they declined (Discuss DNR or withdrawal of care, Hospice)? DNR status @ -No What co-morbidities impacted this encounter? (DM, HTN, Smoking, COPD, CAD, Cancer, CVA, ARF, Chemo, Hep., AIDS, mental health diagnosis, sleep apnea, morbid obesity)? @ -A-fib, lung cancer Was patient admitted / discharged? Hospital course, mention meds given and rout e, prescriptions, significant lab abnormalities, going to OR and other pertinent info. @ -Noted patient is found to be in A-fib RVR patient was started on Cardizem at a low rate given low blood pressure. Patient will be closely monitored and cardiology evaluation. Patient does have leukocytosis patient received recent injection from oncology for her lung cancer causing elevation in her white cou nt. Undiagnosed new problem with uncertain prognosis? @ -No Drug Therapy requiring intensive monitoring for toxicity (Heparin, Nitro, Insulin, Cardizem)? @Cardizem Were any procedures done? @ -No Diagnosis/symptom? @ -A-fib RVR Acute, or Chronic, or Acute on Chronic? @ -Acute Uncomplicated (without systemic symptoms) or Complicated (systemic symptoms)? @ -[Complicated Side effects of treatment? @ -No Exacerbation, Progression, or Severe Exacerbation? @ -No Poses a threat to life or bodily function? How? (Chest pain, [place], [place], pneumonia, PE, COPD, DKA, ARF, appy, cholecystitis, CVA, Diverticulitis, Homicidal, Suicidal, threat to staff... and all critical care pts) @ -Yes A-fib causing cardiac arrest - Lab Data Result diagrams: 07/15/24 09:03 07/15/24 09:03 Lab Results 07/15/24 07/15/24 07/15/24 Range/Units 09:03 09:03 09:03 WBC 27.8 H (3.8-10.6) k/uL RBC 2.96 L (3.80-5.40) m/uL Hgb 10.3 L (11.4-16.0) gm/dL Hct 30.6 L (34.0-46.0) % MCV 103.4 H (80.0-100.0) fL MCH 34.8 (25.0-35.0) pg MCHC 33.6 (31.0-37.0) g/dL RDW 16.2 H (11.5-15.5) % Plt Count 220 D (150-450) k/uL MPV 8.5 Neutrophils % 91 % Lymphocytes % 8 % Monocytes % 0 % Eosinophils % 1 % Basophils % 0 % Neutrophils # 25.3 H (1.3-7.7) k/uL Lymphocytes # 2.1 (1.0-4.8) k/uL Monocytes # 0.1 (0-1.0) k/uL Eosinophils # 0.2 (0-0.7) k/uL Basophils # 0.0 (0-0.2) k/uL Anisocytosis Slight Macrocytosis Moderate PT 11.5 (10.0-12.5) sec INR 1.0 (<1.2) APTT 21.0 L (22.0-30.0) sec Sodium 137 (137-145) mmol/L Potassium 3.9 (3.5-5.1) mmol/L Chloride 95 L (98-107) mmol/L Carbon Dioxide 31 H (22-30) mmol/L Anion Gap 11 mmol/L BUN 20 H (7-17) mg/dL Creatinine 0.69 (0.52-1.04) mg/dL Est GFR (CKD-EPI)AfAm >90 (>60 ml/min/1.73 sqM) Est GFR (CKD-EPI)NonAf 83 (>60 ml/min/1.73 sqM) Glucose 138 H (74-99) mg/dL Calcium 9.6 (8.4-10.2) mg/dL Magnesium 1.6 (1.6-2.3) mg/dL Total Bilirubin 0.7 (0.2-1.3) mg/dL AST 30 (14-36) U/L ALT 32 (4-34) U/L Alkaline Phosphatase 186 H (38-126) U/L Troponin I (0.000-0.034) ng/mL NT-Pro-B Natriuret Pep 1410 pg/mL Total Protein 6.7 (6.3-8.2) g/dL Albumin 4.3 (3.5-5.0) g/dL 07/15/24 Range/Units 09:03 WBC (3.8-10.6) k/uL RBC (3.80-5.40) m/uL Hgb (11.4-16.0) gm/dL Hct (34.0-46.0) % MCV (80.0-100.0) fL MCH (25.0-35.0) pg MCHC (31.0-37.0) g/dL RDW (11.5-15.5) % Plt Count (150-450) k/uL MPV Neutrophils % % Lymphocytes % % Monocytes % % Eosinophils % % Basophils % % Neutrophils # (1.3-7.7) k/uL Lymphocytes # (1.0-4.8) k/uL Monocytes # (0-1.0) k/uL Eosinophils # (0-0.7) k/uL Basophils # (0-0.2) k/uL Anisocytosis Macrocytosis PT (10.0-12.5) sec INR (<1.2) APTT (22.0-30.0) sec Sodium (137-145) mmol/L Potassium (3.5-5.1) mmol/L Chloride (98-107) mmol/L Carbon Dioxide (22-30) mmol/L Anion Gap mmol/L BUN (7-17) mg/dL Creatinine (0.52-1.04) mg/dL Est GFR (CKD-EPI)AfAm (>60 ml/min/1.73 sqM) Est GFR (CKD-EPI)NonAf (>60 ml/min/1.73 sqM) Glucose (74-99) mg/dL Calcium (8.4-10.2) mg/dL Magnesium (1.6-2.3) mg/dL Total Bilirubin (0.2-1.3) mg/dL AST (14-36) U/L ALT (4-34) U/L Alkaline Phosphatase (38-126) U/L Troponin I 0.019 (0.000-0.034) ng/mL NT-Pro-B Natriuret Pep pg/mL Total Protein (6.3-8.2) g/dL Albumin (3.5-5.0) g/dL Critical Care Time Critical Care Time: Yes Total Critical Care Time: 35 Disposition Clinical Impression: Atrial fibrillation with RVR Disposition: ADMITTED IP TO THIS HOSP Condition: Fair Time of Disposition: 10:42
[2024-07-15 09:16] LABS: Anisocytosis Slight; Basophils % (A) 0 %; Eosinophils # (A) 0.2 k/uL (0-0.7); Eosinophils % (A) 1 %; HCT 30.6 % (34.0-46.0); HGB 10.3 gm/dL (11.4-16.0); Lymphocytes # (A) 2.1 k/uL (1.0-4.8); Lymphocytes % (A) 8 %; MCH 34.8 pg (25.0-35.0); MCHC 33.6 g/dL (31.0-37.0); MCV 103.4 fL (80.0-100.0); Macrocytosis Moderate; Mean Platelet Volume 8.5; Monocytes # (A) 0.1 k/uL (0-1.0); Monocytes % (A) 0 %; Neutrophils # (A) 25.3 k/uL (1.3-7.7); Neutrophils % (A) 91 %; RBC 2.96 m/uL (3.80-5.40); RDW 16.2 % (11.5-15.5); WBC 27.8 k/uL (3.8-10.6)
[2024-07-15] MEDS: DILTIAZEM 125 MG in SODIUM CHLORIDE 0.9% 100 ML IV SCH (09:16)
[2024-07-15] MEDS: DILTIAZEM DRIP BOLUS FROM BAG 1 MG SOLN IV ONE (09:17)
--- NOTE | 2024-07-15 09:19 | XR ---
EXAMINATION TYPE: XR chest 2V DATE OF EXAM: 07/15/2024 9:14 AM COMPARISON: 06/21/2024 CLINICAL INDICATION: Female, 78 years old with history of Chest Pain, TECHNIQUE: XR chest 2V view(s) obtained. FINDINGS: The heart size is normal. The pulmonary vasculature is normal. There is a small right pleural effusion. Lung brito otherwise appear clear IMPRESSION: 1. Small right pleural effusion [facility], , 07/15/2024 9:16 AM
[2024-07-15 09:25] LABS: ALT 32 U/L (4-34); AST 30 U/L (14-36); African American GFR (CKD) >90 (>60 ml/min/1.73 sqM); Albumin 4.3 g/dL (3.5-5.0); Alkaline Phosphatase 186 U/L (38-126); Anion Gap 11 mmol/L; Blood Urea Nitrogen 20 mg/dL (7-17); Calcium 9.6 mg/dL (8.4-10.2); Carbon Dioxide 31 mmol/L (22-30); Chloride 95 mmol/L (98-107); Glucose 138 mg/dL (74-99); Magnesium 1.6 mg/dL (1.6-2.3); Non-African American GFR(CKD) 83 (>60 ml/min/1.73 sqM); Potassium 3.9 mmol/L (3.5-5.1); Sodium 137 mmol/L (137-145); Total Bilirubin 0.7 mg/dL (0.2-1.3); Total Protein 6.7 g/dL (6.3-8.2)
[2024-07-15 09:30] LABS: Prothrombin Time 11.5 sec (10.0-12.5)
[2024-07-15 09:32] LABS: NT-Pro-B-Type Natriuretic Pept 1410 pg/mL
[2024-07-15 10:16] LABS: Platelet Count 220 k/uL (150-450)
[2024-07-15 11:28] LABS: Appearance,Urine Clear (Clear); Bilirubin,Urine Negative (Negative); Blood,Urine Negative (Negative); Color,Urine Colorless; Glucose,Urine (UA) 4+ (Negative); Ketones,Urine Negative (Negative); Leukocyte Esterase,Urine Small (Negative); Nitrite,Urine Negative (Negative); Protein,Urine Negative (Negative); RBC,Urine <1 /hpf (0-5); Urobilinogen,Urine <2.0 mg/dL (<2.0); WBC,Urine 1 /hpf (0-5)
--- NOTE | 2024-07-15 13:10 | P.HPIM ---
History of Present Illness 75-year-old pleasant female came in with complaints of palpitations found to be in atrial fibrillation with rapid ventricular rate patient missed couple dose of metoprolol because of hypotension she did not take her medications. Patient white blood cell count is very high patient received colony-stimulating factor on after her chemotherapy. Patient is on tapering dose of amiodarone. REVIEW OF SYSTEMS: All other systems are negative except those mentioned in the HPI PHYSICAL EXAMINATION: GENERAL: The patient is alert and oriented x3, not in any acute distress. Well developed, well nourished. HEENT: Pupils are round and equally reacting to light. EOMI. No scleral icterus. No conjunctival pallor. Normocephalic, atraumatic. No pharyngeal erythema. No thyromegaly. CARDIOVASCULAR: S1 and S2 present. No murmurs, rubs, or gallops. PULMONARY: Chest is clear to auscultation, no wheezing or crackles. ABDOMEN: Soft, nontender, nondistended, normoactive bowel sounds. No palpable organomegaly. MUSCULOSKELETAL: No joint swelling or deformity. EXTREMITIES: No cyanosis, clubbing, or pedal edema. NEUROLOGICAL: Gross neurological examination did not reveal any focal deficits. SKIN: No rashes. Assessment and plan -Atrial fibrillation with rapid ventricular rate patient is presently on 200 mg twice a day of amiodarone and Cardizem is being weaned off metoprolol 25 p.o. 3 times daily was ordered. Patient is presently not on any anticoagulation probably because of bleeding risk -Leukocytosis secondary to GM-CSF received postchemotherapy. -Lung cancer was on chemotherapy will be on immunotherapy. Oncology will evaluate the patient -Coronary disease with CABG and stent in the past. DVT prophylaxis: Lovenox Past Medical History Past Medical History: Atrial Fibrillation, Cancer Additional Past Medical History / Comment(s): afib hx-stopped taking Eliquis. 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 History of Any Multi-Drug Resistant Organisms: None Reported Past Surgical History: Cardiac Valve Replacement, Coronary Bypass/CABG, Heart Catheterization With Stent Additional Past Surgical History / Comment(s): Stents removed when bypass surgery was done at [facility] Past Anesthesia/Blood Transfusion Reactions: No Reported Reaction Date of Last Stent Placement:: 1999 Past Psychological History: Anxiety Additional Psychological History / Comment(s): states on klonopin for past 20 years Smoking Status: Former smoker Past Alcohol Use History: None Reported Past Drug Use History: None Reported Medications and Allergies Home Medications Medication Instructions Recorded Confirmed Type Atorvastatin [Lipitor] 40 mg PO W/SUPPER 04/03/24 07/15/24 History clonazePAM [KlonoPIN] 1 mg PO HS@2100 04/03/24 07/15/24 History Amiodarone [Cordarone] See Taper PO TID 07/15/24 07/15/24 History Ascorbic Acid [Vitamin C] 500 mg PO DAILY@1500 07/15/24 07/15/24 History Cholecalciferol [Vitamin D3 (25 25 mcg PO DAILY@1500 07/15/24 07/15/24 History Mcg = 1000 Iu)] Famotidine [Pepcid] 20 mg PO DAILY@1500 07/15/24 07/15/24 History Allergies Allergy/AdvReac Type Severity Reaction Status Date / Time No Known Allergies Allergy Verified 07/15/24 10:45 Physical Exam Vitals: Vital Signs Temp Pulse Pulse Resp BP Pulse Ox 07/15/24 11:00 111 H 17 107/63 94 L 07/15/24 10:50 123 H 23 97/75 91 L 07/15/24 10:40 133 H 18 128/71 07/15/24 10:30 140 H 20 113/58 94 L 07/15/24 10:20 126 H 18 107/89 90 L 07/15/24 10:10 138 H 16 109/63 91 L 07/15/24 10:00 121 H 18 102/69 92 L 07/15/24 09:50 123 H 19 98/61 92 L 07/15/24 09:40 131 H 16 100/58 93 L 07/15/24 09:30 120 H 18 113/61 90 L 07/15/24 09:20 140 H 20 93 L 07/15/24 09:13 136 H 07/15/24 09:10 130 H 16 100/62 95 07/15/24 09:03 131 H 18 100/62 98 07/15/24 08:33 97.7 F 139 H 18 122/74 98 Intake and Output 07/14/24 07/15/24 07/15/24 22:59 06:59 14:59 Intake Total 6.25 Balance 6.25 Intake: Intake, IV Titration 6.25 Amount Diltiazem 125 mg In 6.25 Sodium Chloride 0.9% 100 ml @ 5 MG/HR 5 mls/hr IV .Q24H [facility] Rx#:[id number] Other: Weight 54.431 kg Results CBC & Chem 7: 07/15/24 09:03 07/15/24 09:03 Labs: Abnormal Lab Results - Last 24 Hours (Table) 07/15/24 07/15/24 07/15/24 Range/Units 09:03 09:03 09:03 WBC 27.8 H (3.8-10.6) k/uL RBC 2.96 L (3.80-5.40) m/uL Hgb 10.3 L (11.4-16.0) gm/dL Hct 30.6 L (34.0-46.0) % MCV 103.4 H (80.0-100.0) fL RDW 16.2 H (11.5-15.5) % Neutrophils # 25.3 H (1.3-7.7) k/uL APTT 21.0 L (22.0-30.0) sec Chloride 95 L (98-107) mmol/L Carbon Dioxide 31 H (22-30) mmol/L BUN 20 H (7-17) mg/dL Glucose 138 H (74-99) mg/dL Alkaline Phosphatase 186 H (38-126) U/L Urine Glucose (UA) (Negative) Ur Leukocyte Esterase (Negative) 07/15/24 Range/Units 11:00 WBC (3.8-10.6) k/uL RBC (3.80-5.40) m/uL Hgb (11.4-16.0) gm/dL Hct (34.0-46.0) % MCV (80.0-100.0) fL RDW (11.5-15.5) % Neutrophils # (1.3-7.7) k/uL APTT (22.0-30.0) sec Chloride (98-107) mmol/L Carbon Dioxide (22-30) mmol/L BUN (7-17) mg/dL Glucose (74-99) mg/dL Alkaline Phosphatase (38-126) U/L Urine Glucose (UA) 4+ H (Negative) Ur Leukocyte Esterase Small H (Negative)
[2024-07-15] MEDS: METOPROLOL TARTRATE 25 MG TAB PO SCH (13:15)
[2024-07-15] MEDS: AMIODARONE 200 MG TAB PO SCH (13:15)
--- NOTE | 2024-07-15 13:49 | P.CRDCN ---
History of Present Illness Consult date: 07/15/24 Consult reason: atrial fibrillation History of present illness: This is a 78-year-old female patient with past medical history of small cell lung cancer currently on chemotherapy, paroxysmal atrial fibrillation, coronary artery disease with previous CABG and surgical aortic valve replacement, mild cardiomyopathy with known EF of 45%. Patient was seen by cardiology in June for A-fib with RVR and at that time had minimal response to Cardizem drip. Patient did convert to sinus rhythm prior to discharge. She was started on amiodarone on a tapering dose and she states she is now down to 200 mg daily. Regarding anticoagulation, due to a drop in her platelet count, oncology recommended no anticoagulation at that time. Blood pressure 107/63, heart rate 111, pulse ox 94% on room air. Telemetry reviewed and patient's heart rate will jump up to 140s with minimal activity or anxiety. Patient has been started on Cardizem bolus 10 mg followed by drip at 5 mg/h. Oncology is also on consult regarding lung cancer. Discussed medications with the patient and she initially was adamant that she would not take a beta-chrissy and that she would not take anticoagulation. Patient states that her blood pressure at home was 79/35 and she thought it was due to the beta-chrissy. Reviewed also that her platelet count has recovered and is safe for her to start Eliquis she did agree to take both after discussion. -EKG: Atrial fibrillation at 132 bpm -Chest x-ray: Small right pleural effusion -Laboratory studies: WBC 27.8, hemoglobin 10.3, platelet count 220. Sodium 137, potassium 3.9, creatinine 0.69. Troponin negative x 2. Alkaline phosphatase 186. -Home cardiac medications: Amiodarone 200 mg daily, atorvastatin 40 mg with supper. -Echocardiogram performed 06/28/2024: EF 45%, moderate MR, moderate TR. Review Of Systems: At the time of my exam: CONSTITUTIONAL: Denies fever or chills. HEENT: Denies blurred vision, vision changes, or eye pain. Denies hemoptysis CARDIOVASCULAR: Denies chest pain. Denies orthopnea. Denies PND. Denies palpitations RESPIRATORY: Denies shortness of breath. GASTROINTESTINAL: Denies abdominal pain. Denies nausea or vomiting. HEMATOLOGIC: Denies bleeding disorders. GENITOURINARY: Denies any blood in urine. SKIN: Denies puritis. Denies rash. Physical examination: Gen: This is a 78-year-old female appears to be in no acute distress. VS: reviewed HEENT: Head is atraumatic, normocephalic. Pupils equal, round. Sclerae is anicteric. NECK: Supple. No JVD. LUNGS: Clear to auscultation. No wheezes or rhonchi. No intercostal retractions. HEART: Irregular rate and rhythm. No murmur. ABDOMEN: Soft No tenderness. EXTREMITIES: No pedal edema. No calf tenderness. NEUROLOGICAL: Patient is awake, alert and oriented x3. Assessment: Paroxysmal atrial fibrillation with RVR Small cell lung cancer History of CAD with previous CABG and surgical aortic valve replacement Mild cardiomyopathy, EF 45%, ischemic versus nonischemic Plan: Resume patient's home cardiac medications as follows Amiodarone 200 mg twice daily Metoprolol tartrate 25 mg 3 times daily Start patient on Eliquis 2.5 mg twice daily, lower dose due to weight and recent thrombocytopenia No need to repeat echocardiogram as this was done several weeks ago Further recommendations to follow based upon clinical course Thank you kindly for this consultation. Nurse practitioner note has been reviewed, I agree with documented findings and plan of care. Patient was seen and examined. Past Medical History Past Medical History: Atrial Fibrillation, Cancer Additional Past Medical History / Comment(s): afib hx-stopped taking Eliquis. 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 History of Any Multi-Drug Resistant Organisms: None Reported Past Surgical History: Cardiac Valve Replacement, Coronary Bypass/CABG, Heart Catheterization With Stent Additional Past Surgical History / Comment(s): Stents removed when bypass surgery was done at [facility] Past Anesthesia/Blood Transfusion Reactions: No Reported Reaction Date of Last Stent Placement:: 1999 Past Psychological History: Anxiety Additional Psychological History / Comment(s): states on klonopin for past 20 years Smoking Status: Former smoker Past Alcohol Use History: None Reported Past Drug Use History: None Reported Medications and Allergies Home Medications Medication Instructions Recorded Confirmed Type Atorvastatin [Lipitor] 40 mg PO W/SUPPER 04/03/24 07/15/24 History clonazePAM [KlonoPIN] 1 mg PO HS@2100 04/03/24 07/15/24 History Amiodarone [Cordarone] See Taper PO TID 07/15/24 07/15/24 History Ascorbic Acid [Vitamin C] 500 mg PO DAILY@1500 07/15/24 07/15/24 History Cholecalciferol [Vitamin D3 (25 25 mcg PO DAILY@1500 07/15/24 07/15/24 History Mcg = 1000 Iu)] Famotidine [Pepcid] 20 mg PO DAILY@1500 07/15/24 07/15/24 History Allergies Allergy/AdvReac Type Severity Reaction Status Date / Time No Known Allergies Allergy Verified 07/15/24 10:45 Physical Exam Vitals: Vital Signs Temp Pulse Pulse Resp BP Pulse Ox 07/15/24 11:00 111 H 17 107/63 94 L 07/15/24 10:50 123 H 23 97/75 91 L 07/15/24 10:40 133 H 18 128/71 07/15/24 10:30 140 H 20 113/58 94 L 07/15/24 10:20 126 H 18 107/89 90 L 07/15/24 10:10 138 H 16 109/63 91 L 07/15/24 10:00 121 H 18 102/69 92 L 07/15/24 09:50 123 H 19 98/61 92 L 07/15/24 09:40 131 H 16 100/58 93 L 07/15/24 09:30 120 H 18 113/61 90 L 07/15/24 09:20 140 H 20 93 L 07/15/24 09:13 136 H 07/15/24 09:10 130 H 16 100/62 95 07/15/24 09:03 131 H 18 100/62 98 07/15/24 08:33 97.7 F 139 H 18 122/74 98 Intake and Output 07/14/24 07/15/24 07/15/24 22:59 06:59 14:59 Intake Total 6.25 Balance 6.25 Intake: Intake, IV Titration 6.25 Amount Diltiazem 125 mg In 6.25 Sodium Chloride 0.9% 100 ml @ 5 MG/HR 5 mls/hr IV .Q24H [facility] Rx#:[id number] Other: Weight 54.431 kg Results 07/15/24 09:03 07/15/24 09:03 Cardiac Enzymes 07/15/24 07/15/24 07/15/24 Range/Units 09:03 09:03 11:30 AST 30 (14-36) U/L Troponin I 0.019 <0.012 (0.000-0.034) ng/mL Coagulation 07/15/24 Range/Units 09:03 PT 11.5 (10.0-12.5) sec APTT 21.0 L (22.0-30.0) sec CBC 07/15/24 Range/Units 09:03 WBC 27.8 H (3.8-10.6) k/uL RBC 2.96 L (3.80-5.40) m/uL Hgb 10.3 L (11.4-16.0) gm/dL Hct 30.6 L (34.0-46.0) % Plt Count 220 D (150-450) k/uL Comprehensive Metabolic Panel 07/15/24 Range/Units 09:03 Sodium 137 (137-145) mmol/L Potassium 3.9 (3.5-5.1) mmol/L Chloride 95 L (98-107) mmol/L Carbon Dioxide 31 H (22-30) mmol/L BUN 20 H (7-17) mg/dL Creatinine 0.69 (0.52-1.04) mg/dL Glucose 138 H (74-99) mg/dL Calcium 9.6 (8.4-10.2) mg/dL AST 30 (14-36) U/L ALT 32 (4-34) U/L Alkaline Phosphatase 186 H (38-126) U/L Total Protein 6.7 (6.3-8.2) g/dL Albumin 4.3 (3.5-5.0) g/dL Current Medications Generic Name Dose Route Start Last Admin Trade Name Freq PRN Reason Stop Dose Admin Diltiazem HCl 125 mg/ Sodium 125 mls @ 5 mls/hr 07/15/24 08:45 07/15/24 10:31 Chloride IV 10 mg/hr .Q24H SUJEY 10 mls/hr Infusion 5 MG/HR Intake and Output 07/14/24 07/15/24 07/15/24 22:59 06:59 14:59 Intake Total 6.25 Balance 6.25 Intake: Intake, IV Titration 6.25 Amount Diltiazem 125 mg In 6.25 Sodium Chloride 0.9% 100 ml @ 5 MG/HR 5 mls/hr IV .Q24H [facility] Rx#:[id number] Other: Weight 54.431 kg Patient Weight 07/16/24 06:59 Weight 54.431 kg 07/15/24 09:03 07/15/24 09:03
[2024-07-15] MEDS: FAMOTIDINE 20 MG TAB PO SCH (14:43)
--- NOTE | 2024-07-15 16:08 | P.CONS ---
History of Present Illness - Reason for Consult Consult date: 07/15/24 SCLC on treatment, leukocytosis Requesting physician: Raul Bedolla - Chief Complaint palpitations - History of Present Illness Ms. Castañeda is a 78-year-old female who is currently receiving treatment for extensive stage SCLC, she has completed 6 cycles of carb oplatin/etoposide/Tecentriq with GCSF on 07/11/24. She presents to the hospital with c/o palpitations and hypotension. She recently was admitted around [place] for similar symptoms. She was given cardiac medications, which she was weaning from. This AM she was getting ready to go to her cardiology doctor appointment when she noted blood pressure in the 80s over 30s, palpitations in the chest so, she was brought to the emergency department. She is noted to have heart rate in the 120s to 140s, chest x-ray showing a small right pleural effusion, atrial fibrillation seen on telemetry, Hgb 10.3, WBC 20.27.8- consistent with G-CSF-ANC 25.3. When seen, patient states she still has an appetite but everything taste terrible, denies fevers, nausea, vomiting, abdominal pain or cramping, acute changes in bowel or bladder, no bleeding to report. Cardiology consultation, patient has been restarted on Eliquis, cardiac medications resumed Review of Systems 10 point ROS is neg except as stated in HPI Past Medical History Past Medical History: Atrial Fibrillation, Cancer Additional Past Medical History / Comment(s): afib hx-stopped taking Eliquis. 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 Past Anesthesia/Blood Transfusion Reactions: No Reported Reaction Date of Last Stent Placement:: 1999 Past Psychological History: Anxiety Additional Psychological History / Comment(s): states on klonopin for past 20 years Smoking Status: Former smoker Past Alcohol Use History: None Reported Past Drug Use History: None Reported Medications and Allergies Home Medications Medication Instructions Recorded Confirmed Type Atorvastatin [Lipitor] 40 mg PO W/SUPPER 04/03/24 07/15/24 History clonazePAM [KlonoPIN] 1 mg PO HS@2100 04/03/24 07/15/24 History Amiodarone [Cordarone] See Taper PO TID 07/15/24 07/15/24 History Ascorbic Acid [Vitamin C] 500 mg PO DAILY@1500 07/15/24 07/15/24 History Cholecalciferol [Vitamin D3 (25 25 mcg PO DAILY@1500 07/15/24 07/15/24 History Mcg = 1000 Iu)] Famotidine [Pepcid] 20 mg PO DAILY@1500 07/15/24 07/15/24 History Allergies Allergy/AdvReac Type Severity Reaction Status Date / Time No Known Allergies Allergy Verified 07/15/24 10:45 Physical Exam Vitals: Vital Signs Temp Pulse Pulse Resp BP Pulse Ox 07/15/24 14:44 96 18 99/64 96 07/15/24 11:00 111 H 17 107/63 94 L 07/15/24 10:50 123 H 23 97/75 91 L 07/15/24 10:40 133 H 18 128/71 07/15/24 10:30 140 H 20 113/58 94 L 07/15/24 10:20 126 H 18 107/89 90 L 07/15/24 10:10 138 H 16 109/63 91 L 07/15/24 10:00 121 H 18 102/69 92 L 07/15/24 09:50 123 H 19 98/61 92 L 07/15/24 09:40 131 H 16 100/58 93 L 07/15/24 09:30 120 H 18 113/61 90 L 07/15/24 09:20 140 H 20 93 L 07/15/24 09:13 136 H 07/15/24 09:10 130 H 16 100/62 95 07/15/24 09:03 131 H 18 100/62 98 07/15/24 08:33 97.7 F 139 H 18 122/74 98 Intake and Output 07/15/24 07/15/24 07/15/24 06:59 14:59 22:59 Intake Total 6.25 Balance 6.25 Intake: Intake, IV Titration 6.25 Amount Diltiazem 125 mg In 6.25 Sodium Chloride 0.9% 100 ml @ 5 MG/HR 5 mls/hr IV .Q24H [facility] Rx#:[id number] Other: Weight 54.431 kg - Constitutional General appearance: average body habitus, cooperative, no acute distress - EENT Eyes: anicteric sclerae, EOMI ENT: hearing grossly normal, normal oropharynx - Neck Neck: no lymphadenopathy - Respiratory Respiratory: right: diminished, left: CTA - Cardiovascular Tachycardia, irregularly irregular rhythm Heart sounds: normal: S1, S2 Abnormal Heart Sounds: no systolic murmur, no diastolic murmur, no rub, no S3 Gallop, no S4 Gallop, no click, no other leg Peripheral Edema: bilateral: None - Gastrointestinal General gastrointestinal: normal bowel sounds, soft - Integumentary Integumentary: normal - Neurologic Neurologic: CNII-XII intact - Musculoskeletal Musculoskeletal: strength equal bilaterally - Psychiatric Psychiatric: A&O x's 3, appropriate affect, intact judgment & insight Results CBC & Chem 7: 07/15/24 09:03 07/15/24 09:03 Labs: Abnormal Lab Results - Last 24 Hours (Table) 07/15/24 07/15/24 07/15/24 Range/Units 09:03 09:03 09:03 WBC 27.8 H (3.8-10.6) k/uL RBC 2.96 L (3.80-5.40) m/uL Hgb 10.3 L (11.4-16.0) gm/dL Hct 30.6 L (34.0-46.0) % MCV 103.4 H (80.0-100.0) fL RDW 16.2 H (11.5-15.5) % Neutrophils # 25.3 H (1.3-7.7) k/uL APTT 21.0 L (22.0-30.0) sec Chloride 95 L (98-107) mmol/L Carbon Dioxide 31 H (22-30) mmol/L BUN 20 H (7-17) mg/dL Glucose 138 H (74-99) mg/dL Alkaline Phosphatase 186 H (38-126) U/L Urine Glucose (UA) (Negative) Ur Leukocyte Esterase (Negative) 07/15/24 Range/Units 11:00 WBC (3.8-10.6) k/uL RBC (3.80-5.40) m/uL Hgb (11.4-16.0) gm/dL Hct (34.0-46.0) % MCV (80.0-100.0) fL RDW (11.5-15.5) % Neutrophils # (1.3-7.7) k/uL APTT (22.0-30.0) sec Chloride (98-107) mmol/L Carbon Dioxide (22-30) mmol/L BUN (7-17) mg/dL Glucose (74-99) mg/dL Alkaline Phosphatase (38-126) U/L Urine Glucose (UA) 4+ H (Negative) Ur Leukocyte Esterase Small H (Negative) Chest x-ray: report reviewed Assessment and Plan (1) Atrial fibrillation with RVR Current Visit: Yes Status: Acute Priority: High Code(s): I48.91 - UNSPECIFIED ATRIAL FIBRILLATION SNOMED Code(s): 850891464398554 (2) Neutrophilic leukocytosis Current Visit: Yes Status: Acute Priority: Low Code(s): D72.828 - OTHER ELEVATED WHITE BLOOD CELL COUNT SNOMED Code(s): 482497139 (3) Extensive stage primary small cell carcinoma of lung Current Visit: No Status: Chronic Priority: Medium Code(s): C34.90 - MALIGNANT NEOPLASM OF UNSP PART OF UNSP BRONCHUS OR LUNG SNOMED Code(s): 317142638049272 Plan: A-fib with RVR Cardiology has seen the patient. Medications have been adjusted. Patient is resumed on Eliquis. Neutrophilic leukocytosis -Secondary to G-CSF, as anticipated. Count will decrease over the next week. Extensive stage small cell lung cancer -Patient has completed the chemotherapy/immunotherapy with G-CSF portion of treatment. Treatment f/u PET/CT 06/06/2024 reported positive treatment response, right lung mass measuring 6.6 cm with SUV of 13.2, previously 10 cm with SUV 16.3. Resolved liver metastasis. No new metastatic lesions noted. -She will continue on IO alone Q 3 weeks. Do not anticipate the pancytopenia as caused by chemo. G-CSF will not be necessary while on immunotherapy alone. -Patient inquired if her atrial fibrillation and palpitations were related to chemo/growth factors. Cardiotoxicity/a-fib is not common side effect of this regimen but, it would not be able to be completely ruled out. Also, patient was modifying her cardiac medications. Will see how she does when her cardiac medications are adjusted. -F/U appt in discharge plan.
[2024-07-15] MEDS: ACETAMINOPHEN TAB 325 MG TAB PO PRN (17:34)
[2024-07-15] MEDS: ATORVASTATIN 40 MG TAB PO SCH (17:34)
[2024-07-15] MEDS: clonazePAM 1 MG TAB PO PRN (21:00)
[2024-07-15] MEDS: APIXABAN 2.5 MG TABLET PO SCH (21:00)
[2024-07-16 07:22] LABS: HCT 32.2 % (34.0-46.0); HGB 10.7 gm/dL (11.4-16.0); MCH 35.2 pg (25.0-35.0); MCHC 33.1 g/dL (31.0-37.0); MCV 106.1 fL (80.0-100.0); Macrocytosis Moderate; Mean Platelet Volume 8.2; Platelet Count 188 k/uL (150-450); RBC 3.03 m/uL (3.80-5.40); WBC 11.9 k/uL (3.8-10.6)
[2024-07-16 07:25] LABS: Anion Gap 6 mmol/L; Blood Urea Nitrogen 18 mg/dL (7-17); Carbon Dioxide 31 mmol/L (22-30); Chloride 98 mmol/L (98-107); Glucose 101 mg/dL (74-99); Potassium 3.8 mmol/L (3.5-5.1); Sodium 135 mmol/L (137-145)
[2024-07-16 07:26] LABS: African American GFR (CKD) >90 (>60 ml/min/1.73 sqM); Calcium 8.7 mg/dL (8.4-10.2); Non-African American GFR(CKD) 86 (>60 ml/min/1.73 sqM)
[2024-07-16] MEDS: DEXTROSE 5% IN WATER 100 ML with AMIODARONE 150 MG IV ONE (10:05)
[2024-07-16] MEDS: AMIODARONE 360 MG in DEXTROSE 5% IN WATER 200 ML IV ONE (10:34)
--- NOTE | 2024-07-16 11:08 | P.PN ---
Subjective Progress Note Date: 07/16/24 Consult reason: atrial fibrillation History of present illness: This is a 78-year-old female patient with past medical history of small cell lung cancer currently on chemotherapy, paroxysmal atrial fibrillation, coronary artery disease with previous CABG and surgical aortic valve replacement, mild cardiomyopathy with known EF of 45%. Patient was seen by cardiology in June for A-fib with RVR and at that time had minimal response to Cardizem drip. Patient did convert to sinus rhythm prior to discharge. She was started on amiodarone on a tapering dose and she states she is now down to 200 mg daily. Regarding anticoagulation, due to a drop in her platelet count, oncology recommended no anticoagulation at that time. Blood pressure 107/63, heart rate 111, pulse ox 94% on room air. Telemetry reviewed and patient's heart rate will jump up to 140s with minimal activity or anxiety. Patient has been started on Cardizem bolus 10 mg followed by drip at 5 mg/h. Oncology is also on consult regarding lung cancer. Discussed medications with the patient and she initially was adamant that she would not take a beta-chrissy and that she would not take anticoagulation. Patient states that her blood pressure at home was 79/35 and she thought it was due to the beta-chrissy. Reviewed also that her platelet count has recovered and is safe for her to start Eliquis she did agree to take both after discussion. -EKG: Atrial fibrillation at 132 bpm -Chest x-ray: Small right pleural effusion -Laboratory studies: WBC 27.8, hemoglobin 10.3, platelet count 220. Sodium 137, potassium 3.9, creatinine 0.69. Troponin negative x 2. Alkaline phosphatase 186. -Home cardiac medications: Amiodarone 200 mg daily, atorvastatin 40 mg with supper. -Echocardiogram performed 06/28/2024: EF 45%, moderate MR, moderate TR. 07/16/2024 Patient seen and examined in the emergency center. Patient remains in the emergency center waiting for a bed on the cardiac stepdown unit. Patient remains in atrial fibrillation with controlled rate in the 90s. Blood pressure 92/68, pulse ox 95% on 2 L nasal cannula. Repeat blood work reveals WBC 11.9, hemoglobin 10.7 platelet count is 188. All 3 troponins are negative. BUN 18 creatinine 0.62, potassium 3.8. Patient is off Cardizem drip and currently maintained on amiodarone 200 mg twice daily and Lopressor 25 mg 3 times daily. Patient refused nighttime dose of beta-chrissy. Blood pressure readings through the night were systolic in the 90s. Noted from oncology that patient's blood counts are expected to decrease over the next week. Dr. Haq discussed in detail with the patient the need to take the medications as directed while she is in the hospital to help us better determine treatment plan for discharge. Physical examination: Gen: This is a 78-year-old female appears to be in no acute distress. VS: reviewed HEENT: Head is atraumatic, normocephalic. Pupils equal, round. Sclerae is anicteric. NECK: Supple. No JVD. LUNGS: Clear to auscultation. No wheezes or rhonchi. No intercostal retrac tions. HEART: Irregular rate and rhythm. No murmur. ABDOMEN: Soft No tenderness. EXTREMITIES: No pedal edema. No calf tenderness. NEUROLOGICAL: Patient is awake, alert and oriented x3. Assessment: Paroxysmal atrial fibrillation with RVR Small cell lung cancer History of CAD with previous CABG and surgical aortic valve replacement Mild cardiomyopathy, EF 45%, ischemic versus nonischemic Plan: Continue patient's home cardiac medications as follows Discontinue amiodarone and start patient on amiodarone bolus of 150 mg followed by drip, on protocol Give 1 dose of metoprolol tartrate 12.5 mg at noon Continue patient on Eliquis 2.5 mg twice daily, lower dose due to weight and recent thrombocytopenia Continue telemetry monitoring Discussed MEGAN and cardioversion, this will be reevaluated in the morning N.p.o. after midnight Further recommendations to follow based upon clinical course Nurse practitioner note has been reviewed, I agree with documented findings and plan of care. Patient was seen and examined. Objective - Vital Signs Vital signs: Vital Signs Temp 97.6 F 07/16/24 04:00 Pulse 97 07/16/24 04:00 Resp 16 07/16/24 04:00 BP 92/68 07/16/24 04:00 Pulse Ox 95 07/16/24 04:00 FiO2 Intake & Output 07/15/24 07/16/24 07/16/24 18:59 06:59 18:59 Intake Total 6.25 384.833 Output Total 200 Balance 6.25 184.833 Weight 54.431 kg Intake: Intake, IV Titration 6. 84.833 Amount Diltiazem 125 mg In 6.25 84.833 Sodium Chloride 0.9% 100 ml @ 5 MG/HR 5 mls/hr IV .Q24H [facility] Rx#:[id number] Oral 300 Output: Urine 200 Other: Voiding Method External Catheter # Voids 1 # Bowel Movements 0 - Labs CBC & Chem 7: 07/16/24 06:43 07/16/24 06:43 Labs: Abnormal Lab Results - Last 24 Hours (Table) 07/15/24 07/15/24 07/15/24 Range/Units 09:03 09:03 09:03 WBC 27.8 H (3.8-10.6) k/uL RBC 2.96 L (3.80-5.40) m/uL Hgb 10.3 L (11.4-16.0) gm/dL Hct 30.6 L (34.0-46.0) % MCV 103.4 H (80.0-100.0) fL RDW 16.2 H (11.5-15.5) % Neutrophils # 25.3 H (1.3-7.7) k/uL APTT 21.0 L (22.0-30.0) sec Chloride 95 L (98-107) mmol/L Carbon Dioxide 31 H (22-30) mmol/L BUN 20 H (7-17) mg/dL Glucose 138 H (74-99) mg/dL Alkaline Phosphatase 186 H (38-126) U/L Urine Glucose (UA) (Negative) Ur Leukocyte Esterase (Negative) 07/15/24 Range/Units 11:00 WBC (3.8-10.6) k/uL RBC (3.80-5.40) m/uL Hgb (11.4-16.0) gm/dL Hct (34.0-46.0) % MCV (80.0-100.0) fL RDW (11.5-15.5) % Neutrophils # (1.3-7.7) k/uL APTT (22.0-30.0) sec Chloride (98-107) mmol/L Carbon Dioxide (22-30) mmol/L BUN (7-17) mg/dL Glucose (74-99) mg/dL Alkaline Phosphatase (38-126) U/L Urine Glucose (UA) 4+ H (Negative) Ur Leukocyte Esterase Small H (Negative)
[2024-07-16] MEDS: METOPROLOL TARTRATE 12.5 MG TAB PO ONE (12:38)
--- NOTE | 2024-07-16 15:46 | P.PN ---
Subjective Progress Note Date: 07/16/24 75-year-old pleasant female came in with complaints of palpitations found to be in atrial fibrillation with rapid ventricular rate patient missed couple dose of metoprolol because of hypotension she did not take her medications. Patient white blood cell count is very high patient received colony-stimulating factor on after her chemotherapy. Patient is on tapering dose of amiodarone. 07/16/2024 Patient evaluated today in the ER pending bed on the medical floor. Continues to feel short of breath and experiencing palpitaitons. Remains in atrial fibrillation; heart rate in the 100s. Patient will be started on IV amiodarone today. Review of Systems Constitutional: Denied any fatigue denied any fever. Cardio vascular: denied any chest pain, palpitations Gastrointestinal: denied any nausea, vomiting, diarrhea Pulmonary: Denied any shortness of breath cough Neurologic denied any new focal deficits All inpatient medications were reviewed and appropriate changes in these medications as dictated in the interval history and assessment and plan. PHYSICAL EXAMINATION: GENERAL: The patient is alert and oriented x3, not in any acute distress. Well developed, well nourished. HEENT: Pupils are round and equally reacting to light. EOMI. No scleral icterus. No conjunctival pallor. Normocephalic, atraumatic. No pharyngeal erythema. No thyromegaly. CARDIOVASCULAR: S1 and S2 present. No murmurs, rubs, or gallops. PULMONARY: Chest is clear to auscultation, no wheezing or crackles. ABDOMEN: Soft, nontender, nondistended, normoactive bowel sounds. No palpable organomegaly. MUSCULOSKELETAL: No joint swelling or deformity. EXTREMITIES: No cyanosis, clubbing, or pedal edema. NEUROLOGICAL: Gross neurological examination did not reveal any focal deficits. SKIN: No rashes. Assessment and plan -Atrial fibrillation with rapid ventricular rate patient will be started on IV amiodarone today. Patient is presently not on any anticoagulation probably because of bleeding risk -Leukocytosis secondary to GM-CSF received postchemotherapy. -Lung cancer was on chemotherapy will be on immunotherapy. Oncology will evaluate the patient -Coronary disease with CABG and stent in the past. DVT prophylaxis: Lovenox The impression and plan of care has been dictated by Arlene Woodard, Nurse Practitioner as directed. Dr. Aquiles MD I have performed a history and physical examination and medical decision making of this patient, discussed the same with the dictator, and agree with the dictators assessment and plan as written, documented as a scribe. Based on total visit time, I have performed more than 50% of this visit. Objective - Vital Signs Vital signs: Vital Signs Temp 97.8 F 07/16/24 08:00 Pulse 94 07/16/24 13:45 Resp 18 07/16/24 13:30 BP 110/66 07/16/24 13:45 Pulse Ox 96 07/16/24 13:00 FiO2 Intake & Output 07/15/24 07/16/24 07/16/24 18:59 06:59 18:59 Intake Total 6.25 384.833 Output Total 200 Balance 6.25 184.833 Weight 54.431 kg Intake: Intake, IV Titration 6.25 84.833 Amount Diltiazem 125 mg In 6.25 84.833 Sodium Chloride 0.9% 100 ml @ 5 MG/HR 5 mls/hr IV .Q24H [facility] Rx#:[id number] Oral 300 Output: Urine 200 Other: Voiding Method External Catheter Bedside Commode Diaper # Voids 1 # Bowel Movements 0 - Labs CBC & Chem 7: 07/16/24 06:43 07/16/24 06:43 Labs: Abnormal Lab Results - Last 24 Hours (Table) 07/16/24 07/16/24 Range/Units 06:43 06:43 WBC 11.9 H (3.8-10.6) k/uL RBC 3.03 L (3.80-5.40) m/uL Hgb 10.7 L (11.4-16.0) gm/dL Hct 32.2 L (34.0-46.0) % MCV 106.1 H (80.0-100.0) fL MCH 35.2 H (25.0-35.0) pg RDW 16.0 H (11.5-15.5) % Sodium 135 L (137-145) mmol/L Carbon Dioxide 31 H (22-30) mmol/L BUN 18 H (7-17) mg/dL Glucose 101 H (74-99) mg/dL Assessment and Plan Time with Patient: Less than 30
[2024-07-16] MEDS: AMIODARONE 450 MG in DEXTROSE 5% IN WATER 250 ML IV SCH (17:20)
[2024-07-17 07:48] LABS: African American GFR (CKD) >90 (>60 ml/min/1.73 sqM); Anion Gap 3 mmol/L; Blood Urea Nitrogen 23 mg/dL (7-17); Calcium 8.5 mg/dL (8.4-10.2); Carbon Dioxide 35 mmol/L (22-30); Chloride 94 mmol/L (98-107); Glucose 99 mg/dL (74-99); Non-African American GFR(CKD) 79 (>60 ml/min/1.73 sqM); Potassium 3.9 mmol/L (3.5-5.1); Sodium 132 mmol/L (137-145)
[2024-07-17 08:13] LABS: Basophils % (A) 0 %; Eosinophils % (A) 1 %; HCT 25.4 % (34.0-46.0); Lymphocytes # (A) 1.8 k/uL (1.0-4.8); Lymphocytes % (A) 48 %; MCH 34.5 pg (25.0-35.0); MCHC 32.9 g/dL (31.0-37.0); MCV 104.9 fL (80.0-100.0); Macrocytosis Moderate; Mean Platelet Volume 8.6; Monocytes % (A) 1 %; Neutrophils # (A) 1.8 k/uL (1.3-7.7); Neutrophils % (A) 48 %; Platelet Count 129 k/uL (150-450); RBC 2.42 m/uL (3.80-5.40); RDW 15.4 % (11.5-15.5); WBC 3.7 k/uL (3.8-10.6)
[2024-07-17 08:15] LABS: HGB 8.3 gm/dL (11.4-16.0)
[2024-07-17 11:39] VITALS: BMI 19.1
[2024-07-17] MEDS: METOPROLOL TARTRATE 25 MG TAB PO SCH (12:24)
--- NOTE | 2024-07-17 15:07 | P.PN ---
Subjective Progress Note Date: 07/17/24 Consult reason: atrial fibrillation History of present illness: This is a 78-year-old female patient with past medical history of small cell lung cancer currently on chemotherapy, paroxysmal atrial fibrillation, coronary artery disease with previous CABG and surgical aortic valve replacement, mild cardiomyopathy with known EF of 45%. Patient was seen by cardiology in June for A-fib with RVR and at that time had minimal response to Cardizem drip. Patient did convert to sinus rhythm prior to discharge. She was started on amiodarone on a tapering dose and she states she is now down to 200 mg daily. Regarding anticoagulation, due to a drop in her platelet count, oncology recommended no anticoagulation at that time. Blood pressure 107/63, heart rate 111, pulse ox 94% on room air. Telemetry reviewed and patient's heart rate will jump up to 140s with minimal activity or anxiety. Patient has been started on Cardizem bolus 10 mg followed by drip at 5 mg/h. Oncology is also on consult regarding lung cancer. Discussed medications with the patient and she initially was adamant that she would not take a beta-chrissy and that she would not take anticoagulation. Patient states that her blood pressure at home was 79/35 and she thought it was due to the beta-chrissy. Reviewed also that her platelet count has recovered and is safe for her to start Eliquis she did agree to take both after discussion. -EKG: Atrial fibrillation at 132 bpm -Chest x-ray: Small right pleural effusion -Laboratory studies: WBC 27.8, hemoglobin 10.3, platelet count 220. Sodium 137, potassium 3.9, creatinine 0.69. Troponin negative x 2. Alkaline phosphatase 186. -Home cardiac medications: Amiodarone 200 mg daily, atorvastatin 40 mg with supper. -Echocardiogram performed 06/28/2024: EF 45%, moderate MR, moderate TR. 07/16/2024 Patient seen and examined in the emergency center. Patient remains in the emergency center waiting for a bed on the cardiac stepdown unit. Patient remains in atrial fibrillation with controlled rate in the 90s. Blood pressure 92/68, pulse ox 95% on 2 L nasal cannula. Repeat blood work reveals WBC 11.9, hemoglobin 10.7 platelet count is 188. All 3 troponins are negative. BUN 18 creatinine 0.62, potassium 3.8. Patient is off Cardizem drip and currently maintained on amiodarone 200 mg twice daily and Lopressor 25 mg 3 times daily. Patient refused nighttime dose of beta-chrissy. Blood pressure readings through the night were systolic in the 90s. Noted from oncology that patient's blood counts are expected to decrease over the next week. Dr. Haq discussed in detail with the patient the need to take the medications as directed while she is in the hospital to help us better determine treatment plan for discharge. 07/16/2024 Patient seen and examined. Patient converted to a sinus rhythm this morning. She had been scheduled for MEGAN and cardioversion which we will cancel. Patient is on amiodarone drip which we will transition to oral. Patient understands is very important that she take her medications as directed. She has been doing this overnight and blood pressure has been stable, 112/50, heart rate 67, pulse ox 94% on room air. Repeat blood work reveals WBC 3.7, hemoglobin 8.3, platelet count 129. Creatinine 0.73. Potassium 3.9. Physical examination: Gen: This is a 78-year-old female appears to be in no acute distress. VS: reviewed HEENT: Head is atraumatic, normocephalic. Pupils equal, round. Sclerae is anicteric. NECK: Supple. No JVD. LUNGS: Clear to auscultation. No wheezes or rhonchi. No intercostal retractions. HEART: Regular rate and rhythm. No murmur. ABDOMEN: Soft No tenderness. EXTREMITIES: No pedal edema. No calf tenderness. NEUROLOGICAL: Patient is awake, alert and oriented x3. Assessment: Paroxysmal atrial fibrillation with RVR Small cell lung cancer History of CAD with previous CABG and surgical aortic valve replacement Mild cardiomyopathy, EF 45%, ischemic versus nonischemic Plan: Continue patient's home cardiac medications as follows Discontinue amiodarone drip and start patient on oral amiodarone 200 mg twice daily Start patient on metoprolol tartrate 25 mg twice daily Continue patient on Eliquis 2.5 mg twice daily, lower dose due to weight and recent thrombocytopenia Continue telemetry monitoring Further recommendations to follow based upon clinical course Nurse practitioner note has been reviewed, I agree with documented findings and plan of care. Patient was seen and examined. Objective - Vital Signs Vital signs: Vital Signs Temp 97.9 F 07/17/24 08:00 Pulse 67 07/17/24 12:00 Resp 16 07/17/24 12:00 BP 133/73 07/17/24 12:00 Pulse Ox 97 07/17/24 12:00 FiO2 Intake & Output 07/16/24 07/17/24 07/17/24 18:59 06:59 18:59 Intake Total 240 730 Balance 240 730 Weight 54.431 kg 52.3 kg 52.3 kg Intake: Intake, IV Titration 250 Amount Amiodarone 450 mg In 250 Dextrose 5% in Water 250 ml @ 0.5 MG/MIN 16.667 mls/hr IV .Q15H [facility] Rx#: [id number] Oral 240 480 Other: Voiding Method Bedside Commode Bedside Commode Bedside Commode # Voids 1 1 1 - Labs CBC & Chem 7: 07/17/24 06:24 07/17/24 06:24 Labs: Abnormal Lab Results - Last 24 Hours (Table) 07/17/24 07/17/24 Range/Units 06:24 06:24 WBC 3.7 L (3.8-10.6) k/uL RBC 2.42 L (3.80-5.40) m/uL Hgb 8.3 L D (11.4-16.0) gm/dL Hct 25.4 L (34.0-46.0) % MCV 104.9 H (80.0-100.0) fL Plt Count 129 L (150-450) k/uL Sodium 132 L (137-145) mmol/L Chloride 94 L (98-107) mmol/L Carbon Dioxide 35 H (22-30) mmol/L BUN 23 H (7-17) mg/dL
[2024-07-17] MEDS: AMIODARONE 200 MG TAB PO SCH (16:29)
--- NOTE | 2024-07-17 20:07 | P.PN ---
Subjective Progress Note Date: 07/17/24 75-year-old pleasant female came in with complaints of palpitations found to be in atrial fibrillation with rapid ventricular rate patient missed couple dose of metoprolol because of hypotension she did not take her medications. Patient white blood cell count is very high patient received colony-stimulating factor on after her chemotherapy. Patient is on tapering dose of amiodarone. 07/16/2024 Patient evaluated today in the ER pending bed on the medical floor. Continues to feel short of breath and experiencing palpitaitons. Remains in atrial fibrillation; heart rate in the 100s. Patient will be started on IV amiodarone today. 07/17/2024 Patient evaluated today in follow up on the cardiac unit. Patient has no further complaints of palpitations. Main complaint is fatigue and agreeable to work with physical therapy. Depending on how she does may need home physical therapy. Patient has converted to normal sinus rhythm. Continues on IV amiodarone with plans to transition to oral amiodarone later this evening. Remains on eliquis. Labs today reveal white blood cell count 3.7, hgb 8.3, platlet count 129, sodium 132, BUN 23, creatinine 0.73. Review of Systems Constitutional: Denied any fatigue denied any fever. Cardio vascular: denied any chest pain, palpitations Gastrointestinal: denied any nausea, vomiting, diarrhea Pulmonary: Denied any shortness of breath cough Neurologic denied any new focal deficits All inpatient medications were reviewed and appropriate changes in these medications as dictated in the interval history and assessment and plan. PHYSICAL EXAMINATION: GENERAL: The patient is alert and oriented x3, not in any acute distress. Well developed, well nourished. HEENT: Pupils are round and equally reacting to light. EOMI. No scleral icterus. No conjunctival pallor. Normocephalic, atraumatic. No pharyngeal erythema. No thyromegaly. CARDIOVASCULAR: S1 and S2 present. No murmurs, rubs, or gallops. PULMONARY: Chest is clear to auscultation, no wheezing or crackles. ABDOMEN: Soft, nontender, nondistended, normoactive bowel sounds. No palpable organomegaly. MUSCULOSKELETAL: No joint swelling or deformity. EXTREMITIES: No cyanosis, clubbing, or pedal edema. NEUROLOGICAL: Gross neurological examination did not reveal any focal deficits. SKIN: No rashes. Assessment and plan -Atrial fibrillation with rapid ventricular rate currently on IV amiodarone with plans to transition to oral amiodarone later this evening. Continue cardiac telemetry monitoring. Currently patient has converted to normal sinus rhythm. -Leukocytosis secondary to GM-CSF received postchemotherapy; WBC trending down currently 3.7. -Lung cancer was on chemotherapy will be on immunotherapy. Oncology will evaluate the patient -Coronary disease with CABG and stent in the past. -Hyponatremia; repeat BMP in the AM DVT prophylaxis: Eliquis Plan Continue telemetry. Transition to oral amiodarone. Likely will DC home in the next 24 hours, once cleared by cardiology. The impression and plan of care has been dictated by Arlene Woodard, Nurse Practitioner as directed. Dr. Aquiles MD I have performed a history and physical examination and medical decision making of this patient, discussed the same with the dictator, and agree with the dictators assessment and plan as written, documented as a scribe. Based on total visit time, I have performed more than 50% of this visit. Objective - Vital Signs Vital signs: Vital Signs Temp 97.6 F 07/17/24 16:00 Pulse 51 L 07/17/24 16:00 Resp 16 07/17/24 16:00 BP 97/59 07/17/24 16:00 Pulse Ox 97 07/17/24 16:00 FiO2 Intake & Output 07/17/24 07/17/24 07/18/24 06:59 18:59 06:59 Intake Total 730 Balance 730 Weight 52.3 kg 52.3 kg Intake: Intake, IV Titration 250 Amount Amiodarone 450 mg In 250 Dextrose 5% in Water 250 ml @ 0.5 MG/MIN 16.667 mls/hr IV .Q15H [facility] Rx#: [id number] Oral 480 Other: Voiding Method Bedside Commode Bedside Commode # Voids 1 1 - Labs CBC & Chem 7: 07/17/24 06:24 07/17/24 06:24 Labs: Abnormal Lab Results - Last 24 Hours (Table) 07/17/24 07/17/24 Range/Units 06:24 06:24 WBC 3.7 L (3.8-10.6) k/uL RBC 2.42 L (3.80-5.40) m/uL Hgb 8.3 L D (11.4-16.0) gm/dL Hct 25.4 L (34.0-46.0) % MCV 104.9 H (80.0-100.0) fL Plt Count 129 L (150-450) k/uL Sodium 132 L (137-145) mmol/L Chloride 94 L (98-107) mmol/L Carbon Dioxide 35 H (22-30) mmol/L BUN 23 H (7-17) mg/dL Assessment and Plan Time with Patient: Less than 30
[2024-07-18 05:13] VITALS: TEMP 97.6
[2024-07-18] MEDS: CHOLECALCIFEROL 25 MCG (1000 IU) TABLET PO SCH (08:42)
[2024-07-18] MEDS: ASCORBIC ACID 500 MG TAB PO SCH (08:42)
[2024-07-18 08:47] VITALS: RESP 16
[2024-07-18 09:15] LABS: African American GFR (CKD) >90 (>60 ml/min/1.73 sqM); Anion Gap 5 mmol/L; Blood Urea Nitrogen 22 mg/dL (7-17); Calcium 8.7 mg/dL (8.4-10.2); Carbon Dioxide 33 mmol/L (22-30); Chloride 97 mmol/L (98-107); Glucose 103 mg/dL (74-99); Non-African American GFR(CKD) 81 (>60 ml/min/1.73 sqM); Potassium 3.5 mmol/L (3.5-5.1); Sodium 135 mmol/L (137-145)
[2024-07-18] MEDS: POTASSIUM CHLORIDE ER 20 MEQ TAB.ER PO STA (12:10)
[2024-07-18 12:20] VITALS: BP 108/66; PULSE 55
--- NOTE | 2024-07-18 14:33 | P.PN ---
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 Patient was seen by cardiology in June for A-fib with RVR and at that time had minimal response to Cardizem drip. Patient did convert to sinus rhythm prior to discharge. She was started on amiodarone on a tapering dose and she states she is now down to 200 mg daily. Regarding anticoagulation, due to a drop in her platelet count, oncology recommended no anticoagulation at that time. Blood pressure 107/63, heart rate 111, pulse ox 94% on room air. Telemetry reviewed and patient's heart rate will jump up to 140s with minimal activity or anxiety. Patient has been started on Cardizem bolus 10 mg followed by drip at 5 mg/h. Oncology is also on consult regarding lung cancer. Discussed medications with the patient and she initially was adamant that she would not take a beta-chrissy and that she would not take anticoagulation. Patient states that her blood pressure at home was 79/35 and she thought it was due to the beta-chrissy. Reviewed also that her platelet count has recovered and is safe for her to start Eliquis she did agree to take both after discussion. -EKG: Atrial fibrillation at 132 bpm -Chest x-ray: Small right pleural effusion -Laboratory studies: WBC 27.8, hemoglobin 10.3, platelet count 220. Sodium 137, potassium 3.9, creatinine 0.69. Troponin negative x 2. Alkaline phosphatase 186. -Home cardiac medications: Amiodarone 200 mg daily, atorvastatin 40 mg with supper. -Echocardiogram performed 06/28/2024: EF 45%, moderate MR, moderate TR. 07/16/2024 Patient seen and examined in the emergency center. Patient remains in the emergency center waiting for a bed on the cardiac stepdown unit. Patient remains in atrial fibrillation with controlled rate in the 90s. Blood pressure 92/68, pulse ox 95% on 2 L nasal cannula. Repeat blood work reveals WBC 11.9, hemoglobin 10.7 platelet count is 188. All 3 troponins are negative. BUN 18 creatinine 0.62, potassium 3.8. Patient is off Cardizem drip and currently maintained on amiodarone 200 mg twice daily and Lopressor 25 mg 3 times daily. Patient refused nighttime dose of beta-chrissy. Blood pressure readings through the night were systolic in the 90s. Noted from oncology that patient's blood counts are expected to decrease over the next week. Dr. Haq discussed in detail with the patient the need to take the medications as directed while she is in the hospital to help us better determine treatment plan for discharge. 07/16/2024 Patient seen and examined. Patient converted to a sinus rhythm this morning. She had been scheduled for MEGAN and cardioversion which we will cancel. Patient is on amiodarone drip which we will transition to oral. Patient understands is very important that she take her medications as directed. She has been doing this overnight and blood pressure has been stable, 112/50, heart rate 67, pulse ox 94% on room air. Repeat blood work reveals WBC 3.7, hemoglobin 8.3, platelet count 129. Creatinine 0.73. Potassium 3.9. 07/17/2024 Patient seen and examined. Patient remains in a sinus rhythm. Blood pressure has been stable 108/53, heart rate 55-62. Pulse ox 97% on room air. Physical examination: Gen: This is a 78-year-old female appears to be in no acute distress. VS: reviewed HEENT: Head is atraumatic, normocephalic. Pupils equal, round. Sclerae is anicteric. NECK: Supple. No JVD. LUNGS: Clear to auscultation. No wheezes or rhonchi. No intercostal retractions. HEART: Regular rate and rhythm. No murmur. ABDOMEN: Soft No tenderness. EXTREMITIES: No pedal edema. No calf tenderness. NEUROLOGICAL: Patient is awake, alert and oriented x3. Assessment: Paroxysmal atrial fibrillation with RVR, currently in sinus rhythm Small cell lung cancer History of CAD with previous CABG and surgical aortic valve replacement Mild cardiomyopathy, EF 45%, ischemic versus nonischemic Plan: Continue patient on amiodarone 200 mg twice daily, Eliquis 2.5 mg twice daily, atorvastatin, Lopressor 12.5 mg twice daily. Patient checks her blood pressures at home. She may hold the beta-chrissy for heart rate less than 60 or blood pressure less than 100. Patient is cleared for discharge from cardiology May follow-up with Dr. Gaitan in 1 week. Nurse practitioner note has been reviewed, I agree with documented findings and plan of care. Patient was seen and examined. Objective - Vital Signs Vital signs: Vital Signs Temp 97.6 F 07/18/24 08:00 Pulse 62 07/18/24 08:00 Resp 16 07/18/24 08:00 BP 108/53 07/18/24 08:00 Pulse Ox 97 07/18/24 08:00 FiO2 Intake & Output 07/17/24 07/18/24 07/18/24 18:59 06:59 18:59 Intake Total 730 Balance 730 Weight 52.3 kg Intake: Intake, IV Titration 250 Amount Amiodarone 450 mg In 250 Dextrose 5% in Water 250 ml @ 0.5 MG/MIN 16.667 mls/hr IV .Q15H SUJEY Rx#: [id number] Oral 480 Other: Voiding Method Bedside Commode Bedside Commode # Voids 1 1 # Bowel Movements 1 - Labs CBC & Chem 7: 07/17/24 06:24 07/18/24 07:54 Labs: Abnormal Lab Results - Last 24 Hours (Table) 07/18/24 Range/Units 07:54 Sodium 135 L (137-145) mmol/L Chloride 97 L (98-107) mmol/L Carbon Dioxide 33 H (22-30) mmol/L BUN 22 H (7-17) mg/dL Glucose 103 H (74-99) mg/dL
[2024-07-18] MEDS ORDERED: METOPROLOL TARTRATE 12.5 MG TAB PO SCH (21:00)
== END 2024-07-18 15:29 | disposition home or self-care (01) | DRG 309 ==
LOC: EC 08:31 → 3SCARD 10:41
PROVIDERS: ADMIT Internal Medicine; ATTEND Internal Medicine
PROC: 3E033RZ Introduction of Antiarrhythmic into Peripheral Vein, Percutaneous Approach (ICD-10-PCS; principal; 2024-07-15)
DX: I48.0 Paroxysmal atrial fibrillation (principal); C34.90 Malignant neoplasm of unspecified part of unspecified bronchus or lung; E87.1 Hypo-osmolality and hyponatremia; I25.10 Atherosclerotic heart disease of native coronary artery without angina pectoris; I42.9 Cardiomyopathy, unspecified; D72.828 Other elevated white blood cell count; R00.2 Palpitations; I95.9 Hypotension, unspecified; Z95.1 Presence of aortocoronary bypass graft; Z87.891 Personal history of nicotine dependence; Z95.2 Presence of prosthetic heart valve; Z79.899 Other long term (current) drug therapy
CPT/HCPCS: 36415; 71046; 80048; 80053; 81001; 83735; 83880; 84484; 85025; 85027; 85610; 85730; 93005; 96365; 96366; 96375; 99291

== ENCOUNTER 2024-09-20 09:54 | Emergency (ER) | payer MEDICARE ==
--- NOTE | 2024-09-20 10:09 | ED ---
Abdominal Pain HPI - General Source: patient, EMS, RN notes reviewed Mode of arrival: EMS Limitations: no limitations <Shreya Gutierrez - Last Filed: 09/20/24 16:39> <Monika Farley - Last Filed: 09/20/24 17:49> - General Chief Complaint: Abdominal Pain Stated Complaint: Abd pain Time Seen by Provider: 09/20/24 10:03 - History of Present Illness Initial Comments: This is a 79-year-old female with a past medical history of small cell lung cancer with metastasis on immunotherapy presenting for epigastric jong pain, nausea and vomiting. Patient states that yesterday evening, at 10 PM, she began to experience epigastric abdominal pain that was nonradiating. While patient arrived to the emergency department she began to develop nausea and vomiting. Patient states that she recently had immunotherapy session on Monday. She denies emesis, coffee-ground emesis, urinary or bowel habit changes. Denies difficulty in breathing, chest pain, heart palpitations. history of appendectomy and cholecytectomy in childhood. patient follows with Dr. Cao (Shreya Gutierrez) - Related Data Home Medications Medication Instructions Recorded Confirmed Atorvastatin [Lipitor] 40 mg PO W/SUPPER 04/03/24 07/15/24 clonazePAM [KlonoPIN] 1 mg PO HS@2100 04/03/24 07/15/24 Ascorbic Acid [Vitamin C] 500 mg PO DAILY@149907/15/24 07/15/24 Cholecalciferol [Vitamin D3 (25 25 mcg PO DAILY@1500 07/15/24 07/15/24 Mcg = 1000 Iu)] Famotidine [Pepcid] 20 mg PO DAILY@1500 07/15/24 07/15/24 Previous Rx's Medication Instructions Recorded Amiodarone [Cordarone] 200 mg PO BID #60 tab 07/18/24 Apixaban [Eliquis] 2.5 mg PO BID #60 tab 07/18/24 Metoprolol Tartrate [Lopressor] 12.5 mg PO BID #30 tab 07/18/24 Allergies Allergy/AdvReac Type Severity Reaction Status Date / Time No Known Allergies Allergy Verified 09/20/24 10:00 Review of Systems ROS Other: All systems not noted in ROS Statement are negative. <Shreya Gutierrez - Last Filed: 09/20/24 16:39> ROS Other: All systems not noted in ROS Statement are negative. <Monika Farley - Last Filed: 09/20/24 17:49> ROS Statement: Those systems with pertinent positive or pertinent negative responses have been documented in the HPI. Past Medical History Past Medical History: Atrial Fibrillation, Cancer Additional Past Medical History / Comment(s): afib hx-stopped taking Eliquis. 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 History of Any Multi-Drug Resistant Organisms: None Reported Past Surgical History: Cardiac Valve Replacement, Coronary Bypass/CABG, Heart Catheterization With Stent Additional Past Surgical History / Comment(s): Stents removed when bypass surgery was done at [facility] Past Anesthesia/Blood Transfusion Reactions: No Reported Reaction Date of Last Stent Placement:: 1999 Past Psychological History: Anxiety Smoking Status: Former smoker <Shreya Gutierrez - Last Filed: 09/20/24 16:39> General Exam Limitations: no limitations <Shreya Gutierrez - Last Filed: 09/20/24 16:39> Course <Monika Farley - Last Filed: 09/20/24 17:49> Vital Signs 09/20/24 09/20/24 09/20/24 09:58 13:00 14:57 Temperature 97.4 F L Pulse Rate 61 82 75 Respiratory 18 24 16 Rate Blood Pressure 183/76 180/75 168/73 O2 Sat by Pulse 94 L 97 93 L Oximetry - Reevaluation(s) Reevaluation #1: 09/20/24 17:46 Case discussed with Lynnette Arellano who accepts transfer. 09/20/24 17:46 Patient reevaluated. No signs of acute distress. Transfer acceptance and discussed with patient he was agreeable. (Monika Farley) Medical Decision Making - Lab Data Result diagrams: 09/20/24 10:44 09/20/24 11:52 <Shreya Gutierrez - Last Filed: 09/20/24 16:39> - Lab Data Result diagrams: 09/20/24 10:44 09/20/24 11:52 - Radiology Data Radiology results: report reviewed, image reviewed <Monika Farley - Last Filed: 09/20/24 17:49> - Medical Decision Making Was pt. sent in by a medical professional or institution (ARMANI Maldonado, ELECTRIC WELL LOGGING OPERATOR, urgent care, hospital, or jail...) When possible be specific @ -No Did you speak to anyone other than the patient for history (EMS, parent, family, police, friend...)? What history was obtained from this source @ -No Did you review nursing and triage notes (agree or disagree)? Why? @ -I reviewed and agree with nursing and triage notes Were old charts reviewed (outside hosp., previous admission, EMS record, old EKG, old radiological studies, urgent care reports/EKG's, jail records)? Report findings @ -No old charts were reviewed Differential Diagnosis (chest pain, altered mental status, abdominal pain women, abdominal pain men, vaginal bleeding, weakness, fever, dyspnea, syncope, headache, dizziness, GI bleed, back pain, seizure, CVA, palpatations, mental health, musculoskeletal)? @ -Differential Abdominal Pain Women: Appendicitis, Cholecystitis, diverticulosis, ischemic bowel, pancreatitis, hepatitis, UTI, gastroenteritis, AAA, incarcerated hernia, bowel obstruction, constipation, inflammatory bowel, hepatitis, peptic ulcer disease, splenic infarction, perforated viscus, vulvitis, ovarian torsion, PID, kidney stone, placenta abruption, this is not meant to be an all-inclusive list EKG interpreted by me (3pts min.). @ -Completed at 1104 sinus rhythm with a ventricular rate of 68, [place] interval 154, QRS 118, QTc 433. X-rays interpreted by me (1pt min.). @ -None done CT interpreted by me (1pt min.). @ -CT of the abdomen pelvis with IV contrast reveals acute edematous interstitial pancreatitis without surrounding fluid within the mesentery. dilated intra and extrahepatic ductal dilation, marginal increase in size of the right lower lobe pulmonary mass measuring up to 6.6 cm U/S interpreted by me (1pt. min.). @ -Gallbladder ultrasound completed concerning for pancreatitis What testing was considered but not performed or refused? (CT, X-rays, U/S, labs)? Why? @ -None What meds were considered but not given or refused? Why? @ -None Did you discuss the management of the patient with other professionals (professionals i.e. ARMANI Maldonado, ELECTRIC WELL LOGGING OPERATOR, lab, RT, psych nurse, social problems specialist, prisoner classification interviewer, teacher, public affairs officer, case preparer and liner)? Give summary @ -sound physicians in regard to admission. Kendall spoke to bone glue maker general surgeon, Dr. Miller, who is recommended that the patient be transferred to a more extensive facility with GI in place with concern for patient's comorbidities of lung cancer with concern for potential to progress to necrotizing infectious pancreatitis. Was smoking cessation discussed for >3mins.? @ -No Was critical care preformed (if so, how long)? @ -No Were there social determinants of health that impacted care today? How? (Homelessness, low income, unemployed, alcoholism, drug addiction, transportation, low edu. Level, literacy, decrease access to med. care, mcc, rehab)? @ -No Was there de-escalation of care discussed even if they declined (Discuss DNR or withdrawal of care, Hospice)? DNR status @ -No What co-morbidities impacted this encounter? (DM, HTN, Smoking, COPD, CAD, Cancer, CVA, ARF, Chemo, Hep., AIDS, mental health diagnosis, sleep apnea, morbid obesity)? @ -None Was patient admitted / discharged? Hospital course, mention meds given and route, prescriptions, significant lab abnormalities, going to OR and other pert inent info. @ -transfer. 79-year-old female presenting to the emergency department for com plaint of abdominal pain. On arrival patient noted to be in mild distress due to pain clutching her mid abdomen in addition to having mild diaphoresis and nausea. Physical exam initially is limited due to patient's pain. She is provided with pain medication and antiemetics. Reevaluation patient states that pain has improved. Pain is reproducible on palpation. EKG is sinus rhythm. Patient's labs remarkable for transaminitis with an AST of 323, ALT 183, alkaline phosphatase 253. Elev[place] [address], and amylase of 1476. Bilirubin normal at 1.2. CT of the abdomen pelvis concerning for acute edematous interstitial pancreatitis with dilated intra and extrahepatic ductal dilation. It is recommended that patient be transferred to higher level of care with GI coverage with possibility of pancreatitis to progress to necrotizing infectious pancreatitis. Undiagnosed new problem with uncertain prognosis? @ -No Drug Therapy requiring intensive monitoring for toxicity (Heparin, Nitro, Insulin, Cardizem)? @ -No Were any procedures done? @ -No Diagnosis/symptom? @ -pancreatitis Acute, or Chronic, or Acute on Chronic? @ -acute Uncomplicated (without systemic symptoms) or Complicated (systemic symptoms)? @ -complicated Side effects of treatment? @ -No Exacerbation, Progression, or Severe Exacerbation? @ -No Poses a threat to life or bodily function? How? (Chest pain, [place], NH, pneumonia, PE, COPD, DKA, ARF, appy, cholecystitis, CVA, Diverticulitis, Homicidal, Suicidal, threat to staff... and all critical care pts) @ -No (Shreya Gutierrez) Case signed out to me from previous shift Shreya Gutierrez PA-C at her shift completion pending transfer for GI consultation. I spoke with Dr. Castaneda, [facility], who accepts transfer. Patient will be transferred in stable condition via EMS to [facility] for further evaluation and treatment. Patient given IV Dilaudid prior to transfer for pain management. Case discussed with ED attending, Dr. English. (Monika Farley) - Lab Data Lab Results 09/20/24 09/20/24 09/20/24 Range/Units 10:44 10:44 10:44 WBC 8.4 (3.8-10.6) k/uL RBC 4.36 (3.80-5.40) m/uL Hgb 14.0 D (11.4-16.0) gm/dL Hct 44.4 (34.0-46.0) % MCV 101.7 H (80.0-100.0) fL MCH 32.1 (25.0-35.0) pg MCHC 31.6 (31.0-37.0) g/dL RDW 13.2 (11.5-15.5) % Plt Count 151 (150-450) k/uL MPV 8.8 Neutrophils % 71 % Lymphocytes % 18 % Monocytes % 5 % Eosinophils % 3 % Basophils % 0 % Neutrophils # 5.9 (1.3-7.7) k/uL Lymphocytes # 1.5 (1.0-4.8) k/uL Monocytes # 0.4 (0-1.0) k/uL Eosinophils # 0.3 (0-0.7) k/uL Basophils # 0.0 (0-0.2) k/uL Macrocytosis Slight Sodium (137-145) mmol/L Potassium (3.5-5.1) mmol/L Chloride (98-107) mmol/L Carbon Dioxide (22-30) mmol/L Anion Gap mmol/L BUN (7-17) mg/dL Creatinine (0.52-1.04) mg/dL Est GFR (CKD-EPI)AfAm (>60 ml/min/1.73 sqM) Est GFR (CKD-EPI)NonAf (>60 ml/min/1.73 sqM) Glucose (74-99) mg/dL Lactic Ac Sepsis Rflx Plasma Lactic Acid Sagar 2.1 H* (0.7-2.0) mmol/L Calcium (8.4-10.2) mg/dL Magnesium (1.6-2.3) mg/dL Total Bilirubin (0.2-1.3) mg/dL AST (14-36) U/L ALT (4-34) U/L Alkaline Phosphatase (38-126) U/L Troponin I <0.012 (0.000-0.034) ng/mL Total Protein (6.3-8.2) g/dL Albumin (3.5-5.0) g/dL Amylase (30-110) U/L Lipase (23-300) U/L 09/20/24 09/20/24 09/20/24 Range/Units 11:12 11:52 14:10 WBC (3.8-10.6) k/uL RBC (3.80-5.40) m/uL Hgb (11.4-16.0) gm/dL Hct (34.0-46.0) % MCV (80.0-100.0) fL MCH (25.0-35.0) pg MCHC (31.0-37.0) g/dL RDW (11.5-15.5) % Plt Count (150-450) k/uL MPV Neutrophils % % Lymphocytes % % Monocytes % % Eosinophils % % Basophils % % Neutrophils # (1.3-7.7) k/uL Lymphocytes # (1.0-4.8) k/uL Monocytes # (0-1.0) k/uL Eosinophils # (0-0.7) k/uL Basophils # (0-0.2) k/uL Macrocytosis Sodium 136 L (137-145) mmol/L Potassium 4.1 (3.5-5.1) mmol/L Chloride 97 L (98-107) mmol/L Carbon Dioxide 31 H (22-30) mmol/L Anion Gap 8 mmol/L BUN 18 H (7-17) mg/dL Creatinine 0.71 (0.52-1.04) mg/dL Est GFR (CKD-EPI)AfAm >90 (>60 ml/min/1.73 sqM) Est GFR (CKD-EPI)NonAf 81 (>60 ml/min/1.73 sqM) Glucose 124 H (74-99) mg/dL Lactic Ac Sepsis Rflx Y Plasma Lactic Acid Sagar 2.6 H* (0.7-2.0) mmol/L Calcium 9.8 (8.4-10.2) mg/dL Magnesium 1.7 (1.6-2.3) mg/dL Total Bilirubin 1.2 (0.2-1.3) mg/dL AST 323 H (14-36) U/L ALT 183 H (4-34) U/L Alkaline Phosphatase 253 H (38-126) U/L Troponin I (0.000-0.034) ng/mL Total Protein 7.0 (6.3-8.2) g/dL Albumin 4.4 (3.5-5.0) g/dL Amylase 1476 H* (30-110) U/L Lipase 17610 H (23-300) U/L 03/21/25 Range/Units 15:02 WBC (3.8-10.6) k/uL RBC (3.80-5.40) m/uL Hgb (11.4-16.0) gm/dL Hct (34.0-46.0) % MCV (80.0-100.0) fL MCH (25.0-35.0) pg MCHC (31.0-37.0) g/dL RDW (11.5-15.5) % Plt Count (150-450) k/uL MPV Neutrophils % % Lymphocytes % % Monocytes % % Eosinophils % % Basophils % % Neutrophils # (1.3-7.7) k/uL Lymphocytes # (1.0-4.8) k/uL Monocytes # (0-1.0) k/uL Eosinophils # (0-0.7) k/uL Basophils # (0-0.2) k/uL Macrocytosis Sodium (137-145) mmol/L Potassium (3.5-5.1) mmol/L Chloride (98-107) mmol/L Carbon Dioxide (22-30) mmol/L Anion Gap mmol/L BUN (7-17) mg/dL Creatinine (0.52-1.04) mg/dL Est GFR (CKD-EPI)AfAm (>60 ml/min/1.73 sqM) Est GFR (CKD-EPI)NonAf (>60 ml/min/1.73 sqM) Glucose (74-99) mg/dL Lactic Ac Sepsis Rflx Y Plasma Lactic Acid Sagar (0.7-2.0) mmol/L Calcium (8.4-10.2) mg/dL Magnesium (1.6-2.3) mg/dL Total Bilirubin (0.2-1.3) mg/dL AST (14-36) U/L ALT (4-34) U/L Alkaline Phosphatase (38-126) U/L Troponin I (0.000-0.034) ng/mL Total Protein (6.3-8.2) g/dL Albumin (3.5-5.0) g/dL Amylase (30-110) U/L Lipase (23-300) U/L Disposition <Shreya Gutierrez - Last Filed: 09/20/24 16:39> Time of Disposition: 17:48 - Out of Hospital Transfer - Req. Specs Out of Hospital Transfer - Requested Specifics: Other Emergency Center ([facility]) <Monika Farley - Last Filed: 09/20/24 17:49> Clinical Impression: Pancreatitis Disposition: ADMITTED IP TO THIS HOSP Condition: Serious Referrals: Nonstaff,Physician [Primary Care Provider] - 1-2 days
[2024-09-20] MEDS: ONDANSETRON 4 MG/2 ML VIAL IVP STA (10:21)
[2024-09-20] MEDS: HYDROmorphone 1 MG/ML 1 ML SYRINGE IVP STA ×3 (10:22→13:29)
[2024-09-20 11:01] LABS: Basophils % (A) 0 %; Eosinophils # (A) 0.3 k/uL (0-0.7); Eosinophils % (A) 3 %; HCT 44.4 % (34.0-46.0); Lymphocytes # (A) 1.5 k/uL (1.0-4.8); Lymphocytes % (A) 18 %; MCH 32.1 pg (25.0-35.0); MCHC 31.6 g/dL (31.0-37.0); MCV 101.7 fL (80.0-100.0); Macrocytosis Slight; Mean Platelet Volume 8.8; Monocytes # (A) 0.4 k/uL (0-1.0); Monocytes % (A) 5 %; Neutrophils # (A) 5.9 k/uL (1.3-7.7); Neutrophils % (A) 71 %; Platelet Count 151 k/uL (150-450); RBC 4.36 m/uL (3.80-5.40); RDW 13.2 % (11.5-15.5); WBC 8.4 k/uL (3.8-10.6)
[2024-09-20] MEDS: SODIUM CHLORIDE 0.9% 1,000 ML IV STA ×2 (11:27→14:55)
[2024-09-20 12:37] LABS: ALT 183 U/L (4-34); AST 323 U/L (14-36); African American GFR (CKD) >90 (>60 ml/min/1.73 sqM); Albumin 4.4 g/dL (3.5-5.0); Alkaline Phosphatase 253 U/L (38-126); Anion Gap 8 mmol/L; Blood Urea Nitrogen 18 mg/dL (7-17); Calcium 9.8 mg/dL (8.4-10.2); Carbon Dioxide 31 mmol/L (22-30); Chloride 97 mmol/L (98-107); Glucose 124 mg/dL (74-99); Magnesium 1.7 mg/dL (1.6-2.3); Non-African American GFR(CKD) 81 (>60 ml/min/1.73 sqM); Potassium 4.1 mmol/L (3.5-5.1); Sodium 136 mmol/L (137-145); Total Bilirubin 1.2 mg/dL (0.2-1.3)
[2024-09-20 13:04] LABS: Lipase 11317 U/L (23-300)
[2024-09-20 13:07] LABS: Amylase 1476 U/L (30-110)
--- NOTE | 2024-09-20 15:00 | CT ---
EXAMINATION TYPE: CT abdomen pelvis w con CT DLP: 564.3 mGycm, Automated exposure control for dose reduction was used. DATE OF EXAM: 09/20/2024 2:47 PM COMPARISON: CTA chest 06/25/2024 CLINICAL INDICATION:Female, 79 years old with history of epigastric ab pain, N/V; epigastric ab pain, N/V TECHNIQUE: Standard CT of the abdomen and pelvis following the administration of 80 cc of Isovue 30 0 IV contrast material. Coronal and sagittal reformats were performed. FINDINGS: LOWER CHEST: No increase in size of right lower lobe pulmonary mass with some hyperdensity measuring 6.6 x 3.7 cm, previously 6.3 x 3.3 cm. Trace surrounding pleural effusion. Median sternotomy wires. M ild cardiomegaly. Postsurgical changes of the aortic valve. Coronary artery calcifications. ABDOMEN LIVER: Unremarkable GALLBLADDER AND BILE DUCTS: The gallbladder is poorly visualized and may be contracted. No surgical c lips within the gallbladder fossa. Intra and extra hepatic biliary ductal dilatation with the common bile duct measuring up to 1.3 cm of the pancreatic head. PANCREAS: Edematous appearance of the pancreas with surrounding fluid. This is most pronounced along the pancreatic head extending into the infrahepatic region and mesentery. No distinct organization. N o pancreatic ductal calcifications or ductal dilatation. No parenchymal calcifications. Portal venous system is patent. SPLEEN: Unremarkable. ADRENAL GLANDS: Unremarkable. KIDNEYS AND URETERS: No evidence of hydronephrosis or renal calculus. The kidneys enhance symmetrical ly. Contrast is demonstrated within both collecting systems and proximal ureters on the delayed phase . PELVIS BLADDER: Unremarkable REPRODUCTIVE: Unremarkable. ABDOMEN & PELVIS STOMACH AND BOWEL: Small hiatal hernia.Small periampullary duodenal diverticulum. Sigmoid diverticulo sis without evidence for acute diverticulitis. No evidence of bowel obstruction. PERITONEUM: No evidence of pneumoperitoneum. Fluid is identified around the pancreas extending into t he mesentery. No organization definitively identified. VASCULATURE: Moderate atherosclerotic calcifications are present throughout the abdominal aorta and i ts branches. No evidence of aortic aneurysm. MUSCULOSKELETAL: No acute osseous abnormalities. Mild disc degeneration changes are present throughou t the thoracolumbar spine. LYMPH NODES: No gross evidence for lymphadenopathy. No aggressive osseous lesion. No acute osseous ab normality.. SOFT TISSUE/ABDOMINAL WALL: Small right inguinal hernia containing fat. IMPRESSION: 1. Findings most consistent with acute edematous interstitial pancreatitis with surrounding fluid wi thin the mesentery. No organization. 2. Dilated intra and extrahepatic ductal dilatation. Correlate with bilirubin levels and consideratio n for ERCP/MRCP. 3. Marginal increase in size of right lower lobe pulmonary mass measuring up to 6.6 cm with trace sammy rounding pleural effusion. This raises concern for possible malignancy. Recommend further evaluation with PET/CT. 4. Sigmoid diverticulosis without evidence for acute diverticulitis. [facility], , 09/20/2024 2:57 PM
--- NOTE | 2024-09-20 16:07 | US ---
EXAMINATION TYPE: US gallbladder DATE OF EXAM: 09/20/2024 COMPARISON: CT(Today) CLINICAL INDICATION: Female, 79 years old with history of epigastric ab pain, elevated LFTs/pancreati c; TECHNIQUE: Grayscale and color Doppler imaging of the right upper quadrant. FINDINGS: EXAM MEASUREMENTS: Liver Length: 12.8 cm Gallbladder Wall: Surgically absent CBD: 1.0 cm, color Doppler imaging was utilized to isolate the common bile duct for measurement. Right Kidney: 8.9x3.6x5.2 cm IN FLIGHT TECHNICIAN NOTES: limited scan due to pt unable to roll or hold still, pt shivering whole exam & com plains of lots of pain Pancreas: Appears edematous with surrounding fluid mainly around head ?ductal dilation: 0.4cm Liver: Increased attenuation ?biliary ductal dilation Gallbladder: Surgically absent ?FF within GB fossa Evidence for sonographic Sims's sign: No CBD: ? slightly dilated Right Kidney: No hydronephrosis or masses seen ? FF anterior to Rt Kidney, within GB Fossa IMPRESSION: Correlate for underlying pancreatitis. [facility], , 09/20/2024 4:05 PM
[2024-09-20 17:49] VITALS: RESP 18
[2024-09-20] MEDS: HYDROmorphone 1 MG/ML 1 ML SYRINGE IVP PRN (17:52)
[2024-09-20] MEDS: LACTATED RINGERS 1,000 ML IV SCH (17:52)
[2024-09-20 19:48] LABS: Appearance,Urine Clear (Clear); Bilirubin,Urine Negative (Negative); Blood,Urine Trace (Negative); Color,Urine Light Yellow; Glucose,Urine (UA) Negative (Negative); Ketones,Urine Negative (Negative); Leukocyte Esterase,Urine Negative (Negative); Mucus,Urine Rare /hpf; Nitrite,Urine Negative (Negative); Protein,Urine Trace (Negative); RBC,Urine 2 /hpf (0-5); Squamous Epithelial Cell,Urine <1 /hpf (0-4); Urobilinogen,Urine <2.0 mg/dL (<2.0); WBC,Urine 3 /hpf (0-5)
[2024-09-20 19:58] VITALS: BP 164/90; PULSE 87; TEMP 98.6
== END 2024-09-20 20:01 | disposition other institution (70) ==
LOC: EC 09:54
DX: K85.90 Acute pancreatitis without necrosis or infection, unspecified (principal); Z87.891 Personal history of nicotine dependence; Z85.118 Personal history of other malignant neoplasm of bronchus and lung
CPT/HCPCS: 36415; 93005; 80053; 82150; 83605; 83690; 83735; 84484; 85025; 81001; 76705; 74177; 99285; 96374; 96375; 96376 ×3; 96361; J2405; J1171; Q9967